=== PATIENT | male | born 1940 | race Caucasian/White ===

== ENCOUNTER 2020-03-07 09:54 | Inpatient (IN) | payer MEDICARE, OTHER ==
[~2020-03-07] VITALS: Ht 177.8 cm; Wt 111.7 kg
[2020-03-07] VITALS (7 sets, daily range): BP systolic 93–215; BP diastolic 63–177
[2020-03-07 10:28] LABS: BASOPHILS % (AUTO) 0 % (0-10); EOSINOPHILS # (AUTO) 0.1 10^3/uL (0.0-0.3); EOSINOPHILS % (AUTO) 1 % (0-10); HEMATOCRIT 45 % (40-54); HEMOGLOBIN 15.6 g/dL (13.3-17.7); LYMPHOCYTES # (AUTO) 2.1 10^3/uL (1.0-4.0); LYMPHOCYTES % (AUTO) 29 % (12-44); MEAN CORPUSCULAR HEMOGLOBIN 33 pg (25-34); MEAN CORPUSCULAR HGB CONC 35 g/dL (32-36); MEAN CORPUSCULAR VOLUME 95 fL (80-99); MEAN PLATELET VOLUME 9.7 fL (9.0-12.2); MONOCYTES # (AUTO) 0.5 10^3/uL (0.0-1.0); MONOCYTES % (AUTO) 7 % (0-12); NEUTROPHILS # (AUTO) 4.7 10^3/uL (1.8-7.8); NEUTROPHILS % (AUTO) 62 % (42-75); PLATELET COUNT 269 10^3/uL (130-400); WHITE BLOOD COUNT 7.5 10^3/uL (4.3-11.0)
[2020-03-07] MEDS ORDERED: LABETALOL HCL 20 MG/4 ML VIAL IV ONE (10:30)
--- NOTE | 2020-03-07 10:33 | ED General ---
General Chief Complaint: General Problems/Pain Stated Complaint: HTN, WEAKNESS Nursing Triage Note: 0941 PATIENT BROUGHT TO ROOM WAS SENT FROM [facility] WITH LEG SWELLING FRO 2 MONTHS AND NOT TAKEN B/P MEDS FOR 4 YEARS . LEGS SWOLLEN.ALSO REPOTS DRINKS WHISKEY EVERY AM TO GET THROUGH THE DAY. Nursing Sepsis Screen: No Definite Risk Source of Information: Patient Exam Limitations: No Limitations (DEZ HERNANDEZ STUDENT) History of Present Illness Date Seen by Provider: Mar 07, 2020 Time Seen by Provider: 10:05 Initial Comments Mr. Anderson is an 79 y.o. M who [facility] for workup of his hypertension. He said he has been "feeling like hell all over" for the last 3 months. He said he has had weakness, lightheadedness, shortness of breath, decreased appetite, weight gain of 50lb over the last 3 months. He said this has caused him to drink a "glassful" of rum every morning for the last 3 months. He reports he has had difficulty urinating and also has blood at the start of his urination stream. He denies any painful urination or blood in the stool. He reports he had a prostatectomy and radiation treatment in 2007 for prostate cancer here at [facility]. He last saw a physician 4 years ago. He denies any other medical problems or taking any medications. He denies SANTA, vision problems, chest pain, abdominal pain, nausea, or vomiting. (DEZ HERNANDEZ MED STUDENT) Allergies and Home Medications Allergies Coded Allergies: No Known Drug Allergies (Unverified , 03/07/20) Patient Home Medication List Home Medication List Reviewed: Yes (DEZ HERNANDEZ MED STUDENT) Review of Systems Review of Systems Constitutional: No dizziness, No fever; weakness, weight gain EENTM: No blurred vision, No double vision, No eye pain, No vision loss Respiratory: No cough, No dyspnea on exertion; short of breath Cardiovascular: No chest pain; edema Gastrointestinal: No abdominal pain, No diarrhea; loss of appetite; No nausea, No vomiting Genitourinary: No dysuria; hematuria; No pain Musculoskeletal: No back pain Psychiatric/Neurological: Denies Headache; Weakness Immunological/Allergic: pollen allergy (DEZ HERNANDEZ MED STUDENT) Past Ttexcrb-Ztrmxq-Txjesu Hx Patient Social History Alcohol Use: Regular Use Number of Drinks Today: 0 Alcohol Beverage of Choice: Rum, Wine Recreational Drug Use: No Smoking Status: Never a Smoker Recent Foreign Travel: No Contact w/Someone Who Travel: No Recent Infectious Disease Expo: No (DEZ HERNANDEZ STUDENT) Past Medical History Surgeries: Yes (PROSTATE) Respiratory: No Cardiac: Yes Hypertension Neurological: No Genitourinary: Yes Prostate Problems (Prostate cancer s/p radiation and prostatectomy) Gastrointestinal: No Musculoskeletal: No Endocrine: No HEENT: No Cancer: Yes Prostate Psychosocial: No (DEZ HERNANDEZ STUDENT) Physical Exam Vital Signs Vital Signs - First Documented 03/07/20 10:00 Temp 36.2 Pulse 99 Resp 18 B/P (MAP) 241/156 (184) Pulse Ox 96 O2 Delivery Room Air (GARY ORTEGA MD) Vital Signs Capillary Refill : Less Than 3 Seconds (DEZ HERNANDEZ STUDENT) Height, Weight, BMI Height: '" Weight: lbs. oz. kg; 40.00 BMI Method: General Appearance: Mild Distress, Obese Eyes: Bilateral Eye Normal Inspection, Bilateral Eye EOMI, Bilateral Eye Conjunctivae Pale Neck: Full Range of Motion, Non Tender Respiratory: Chest Non Tender, Lungs Clear, Normal Breath Sounds, No Respiratory Distress Cardiovascular: Regular Rate, Rhythm, No Murmur, Normal Peripheral Pulses Gastrointestinal: No Organomegaly, Non Tender, Distended, Hernia; No Tenderness Back: No CVA Tenderness Extremity: Pedal Edema Neurologic/Psychiatric: Alert, Oriented x3, No Motor/Sensory Deficits, Normal Mood/Affect Skin: Other (Bilateral pitting edema of lower extremities with scaling) (DEZ HERNANDEZ MED STUDENT) Progress/Results/Core Measures Suspected Sepsis Recent Fever Within 48 Hours: No Infection Criteria Present: None New/Unexplained Altered Menta: No Sepsis Screen: No Definite Risk SIRS Temperature: Pulse: 99 Respiratory Rate: 18 Laboratory Tests 03/07/20 10:22: White Blood Count 7.5 Blood Pressure 241 /156 Mean: 184 Laboratory Tests 03/07/20 10:22: Creatinine 1.46H, INR Comment 1.0, Platelet Count 269, Total Bilirubin 0.7 (DEZ HERNANDEZ MED STUDENT) Results/Orders Lab Results Laboratory Tests Test 03/07/20 10:22 03/07/20 10:42 Range/Units White Blood Count 7.5 4.3-11.0 10^3/uL Red Blood Count 4.75 4.30-5.52 10^6/uL Hemoglobin 15.6 13.3-17.7 g/dL Hematocrit 45 40-54 % Mean Corpuscular Volume 95 80-99 fL Mean Corpuscular Hemoglobin 33 25-34 pg Mean Corpuscular Hemoglobin Concent 35 32-36 g/dL Red Cell Distribution Width 12.6 10.0-14.5 % Platelet Count 269 130-400 10^3/uL Mean Platelet Volume 9.7 9.0-12.2 fL Immature Granulocyte % (Auto) 0 % Neutrophils (%) (Auto) 62 42-75 % Lymphocytes (%) (Auto) 29 12-44 % Monocytes (%) (Auto) 7 0-12 % Eosinophils (%) (Auto) 1 0-10 % Basophils (%) (Auto) 0 0-10 % Neutrophils # (Auto) 4.7 1.8-7.8 10^3/uL Lymphocytes # (Auto) 2.1 1.0-4.0 10^3/uL Monocytes # (Auto) 0.5 0.0-1.0 10^3/uL Eosinophils # (Auto) 0.1 0.0-0.3 10^3/uL Basophils # (Auto) 0.0 0.0-0.1 10^3/uL Immature Granulocyte # (Auto) 0.0 0.0-0.1 10^3/uL Prothrombin Time 13.5 12.2-14.7 SEC INR Comment 1.0 0.8-1.4 Activated Partial Thromboplast Time 26 24-35 SEC Sodium Level 136 135-145 MMOL/L Potassium Level 4.0 3.6-5.0 MMOL/L Chloride Level 100 98-107 MMOL/L Carbon Dioxide Level 26 21-32 MMOL/L Anion Gap 10 5-14 MMOL/L Blood Urea Nitrogen 20 H 7-18 MG/DL Creatinine 1.46 H 0.60-1.30 MG/DL Estimat Glomerular Filtration Rate 46 BUN/Creatinine Ratio 14 Glucose Level 109 H 70-105 MG/DL Calcium Level 8.8 8.5-10.1 MG/DL Corrected Calcium 8.8 8.5-10.1 MG/DL Magnesium Level 1.9 1.6-2.4 MG/DL Total Bilirubin 0.7 0.1-1.0 MG/DL Aspartate Amino Transf (AST/SGOT) 18 5-34 U/L Alanine Aminotransferase (ALT/SGPT) 24 0-55 U/L Alkaline Phosphatase 70 40-136 U/L Myoglobin 75.6 10.0-92.0 NG/ML Troponin I < 0.028 <0.028 NG/ML C-Reactive Protein High Sensitivity 1.74 H 0.00-0.50 MG/DL B-Type Natriuretic Peptide 88.7 <100.0 PG/ML Total Protein 7.2 6.4-8.2 GM/DL Albumin 4.0 3.2-4.5 GM/DL Thyroid Stimulating Hormone (TSH) 2.74 0.35-4.94 UIU/ML Free Thyroxine 0.85 0.70-1.48 NG/DL Serum Alcohol < 10 <10 MG/DL Urine Color YELLOW Urine Clarity CLEAR Urine pH 6.0 5-9 Urine Specific [place] 1.020 1.016-1.022 Urine Protein 1+ H NEGATIVE Urine Glucose (UA) NEGATIVE NEGATIVE Urine Ketones 1+ H NEGATIVE Urine Nitrite NEGATIVE NEGATIVE Urine Bilirubin NEGATIVE NEGATIVE Urine Urobilinogen 0.2 < = 1.0 MG/DL Urine Leukocyte Esterase NEGATIVE NEGATIVE Urine RBC (Auto) TRACE-I NEGATIVE Urine RBC RARE /HPF Urine WBC NONE /HPF Urine Squamous Epithelial Cells RARE /HPF Urine Crystals NONE /LPF Urine Bacteria NEGATIVE /HPF Urine Casts NONE /LPF Urine Mucus NEGATIVE /LPF Urine Culture Indicated NO Urine Opiates Screen NEGATIVE NEGATIVE Urine Oxycodone Screen NEGATIVE NEGATIVE Urine Methadone Screen NEGATIVE NEGATIVE Urine Propoxyphene Screen NEGATIVE NEGATIVE Urine Barbiturates Screen NEGATIVE NEGATIVE Ur Tricyclic Antidepressants Screen NEGATIVE NEGATIVE Urine Phencyclidine Screen NEGATIVE NEGATIVE Urine Amphetamines Screen NEGATIVE NEGATIVE Urine Methamphetamines Screen NEGATIVE NEGATIVE Urine Benzodiazepines Screen NEGATIVE NEGATIVE Urine Cocaine Screen NEGATIVE NEGATIVE Urine Cannabinoids Screen NEGATIVE NEGATIVE (GARY ORTEGA MD) My Orders Orders - GARY ORTEGA MD Thyroid Stimulating Hormone (03/07/20 10:59) Free T4 (Free Thyroxine) (03/07/20 10:59) Ns (Ivpb) (Sodium C... W/Nicardipine Iv (03/07/20 12:15) Clonidine Tablet (Catapres Tablet) (03/07/20 12:45) Amlodipine Tablet (Norvasc Tablet) (03/08/20 09:00) Furosemide Injection (Lasix Injection) (03/07/20 12:45) Metoprolol Succinate (Xl) Tab (Toprol Xl (03/07/20 12:45) (GARY ORTEGA MD) Medications Given in ED Current Medications Medications Dose Ordered Sig/Chung Route Start Time Stop Time Status Last Admin Dose Admin Labetalol HCl 10 mg ONCE ONCE IV 03/07/20 10:30 03/07/20 10:31 DC 03/07/20 10:47 10 MG (GARY ORTEGA MD) Vital Signs/I&O 03/07/20 10:00 Temp 36.2 Pulse 99 Resp 18 B/P (MAP) 241/156 (184) Pulse Ox 96 O2 Delivery Room Air (GARY ORTEGA MD) Vital Signs/I&O Capillary Refill : Less Than 3 Seconds (DEZ HERNANDEZ MED STUDENT) Blood Pressure Mean: 184 Progress Note : Progress Note Patient is an 79 y/o M who presents with 3 month history of Upon arrival patient found to have a MAP of 184. Differential diagnosis at this time is hypertensive urgency vs emergency, thyroid disease, UTI, genitourinary malignancy, bladder outlet obstruction, liver cirrhosis. Will order EKG, CXR, CBC, CMP, thyroid panel, bladder US scan, UA, drug screen and alcohol level. Will administer labetolol 10mg IV for blood pressure while we await the results of the labs/imaging. (DEZ HERNANDEZ MED STUDENT) Progress Note : Time: 12:38 Progress Note Discussed with Dr Guthrie who requested we call DR Kent for consultation. Dr Kent requests 0.1mg of clonidine, 10mg of norvasc, Lasix 80mg and Toprol 50mg. Will place him in ICU stepdown. PAtient is comfortable with the plan of care and all questions are sought and answered. (GARY ORTEGA MD) Diagnostic Imaging Diagonstic Imaging: Xray Plain Films/CT/US/NM/MRI: chest Comments [facility]. [place], [place] NAME: MARLEN ANDERSON MED REC#: [id number] PT STATUS: REG ER : 1940 PHYSICIAN: BARBARA VARGHESE MD ADMIT DATE: 03/07/20/ER Signed Date of Exam:03/07/20 CHEST 1 VIEW, AP/PA ONLY Indication: Peripheral edema Portable chest 10:59 AM Heart size and pulmonary vascularity are normal. Lungs are clear. There are no effusions or pneumothoraces. IMPRESSION: Negative chest Dictated by: Dictated on workstation # [id number] Dict: 03/07/20 1056 Trans: 03/07/20 1057 TB [id number] Interpreted by: JOHN KENNEY MD Electronically signed by: JOHN KENNEY MD 03/07/20 1057 (GARY ORTEGA MD) Departure Impression Primary Impression: Hypertensive urgency Disposition: ADMITTED INPATIENT Condition: Stable Admissions Decision to Admit Reason: Admit from ER (General) Decision to Admit/Date: Mar 07, 2020 Time/Decision to Admit Time: 12:40 (GARY ORTEGA MD) Departure-Patient Inst. Referrals: NO,LOCAL PHYSICIAN (PCP/Family) Primary Care Physician I have reviewed the medical students history and physical exam, I am in agreement with his documentation and assessment and plan of care. (GARY ROTEGA MD) DEZ HERNANDEZ MED STUDENT Mar 07, 2020 10:33 GARY ORTEGA MD Mar 07, 2020 11:20
[2020-03-07 10:42] LABS: PROTHROMBIN TIME PATIENT 13.5 SEC (12.2-14.7)
[2020-03-07 10:44] LABS: CHLORIDE 100 MMOL/L (98-107); SODIUM 136 MMOL/L (135-145)
[2020-03-07 10:45] LABS: CALCIUM 8.8 MG/DL (8.5-10.1)
[2020-03-07 10:47] LABS: GLUCOSE 109 MG/DL (70-105); TOTAL PROTEIN 7.2 GM/DL (6.4-8.2)
[2020-03-07 10:48] LABS: BILIRUBIN,TOTAL 0.7 MG/DL (0.1-1.0); CARBON DIOXIDE 26 MMOL/L (21-32)
[2020-03-07 10:50] LABS: ALKALINE PHOSPHATASE 70 U/L (40-136)
[2020-03-07 10:51] LABS: CREATININE SERUM 1.46 MG/DL (0.60-1.30); GFR ESTIMATED 46
[2020-03-07 10:52] LABS: BUN/CREATININE RATIO 14
[2020-03-07 10:53] LABS: MAGNESIUM 1.9 MG/DL (1.6-2.4)
[2020-03-07 10:54] LABS: ALANINE AMINOTRANSFERASE 24 U/L (0-55)
--- NOTE | 2020-03-07 10:58 | Diagnostic Imaging Report ---
Indication: Peripheral edema Portable chest 10:59 AM Heart size and pulmonary vascularity are normal. Lungs are clear. There are no effusions or pneumothoraces. IMPRESSION: Negative chest Dictated by: Dictated on workstation # [id number]
[2020-03-07 11:00] LABS: BILIRUBIN,URINE NEGATIVE (NEGATIVE); CLARITY,URINE CLEAR; COLOR,URINE YELLOW; GLUCOSE, URINE (UA) NEGATIVE (NEGATIVE); KETONES,URINE 1+ (NEGATIVE); LEUKOCYTE ESTERASE ,URINE NEGATIVE (NEGATIVE); NITRITE,URINE NEGATIVE (NEGATIVE); PROTEIN,URINE 1+ (NEGATIVE)
[2020-03-07 11:04] LABS: BACTERIA,URINE NEGATIVE /HPF; RBC,URINE RARE /HPF; SQUAMOUS EPITHELIAL CELL,UR RARE /HPF
[2020-03-07 11:23] LABS: AMPHETAMINE SCREEN, URINE NEGATIVE (NEGATIVE); BARBITURATE SCREEN URINE NEGATIVE (NEGATIVE); BENZODIAZEPINES SCREEN URINE NEGATIVE (NEGATIVE); CANNABINOID SCREEN, URINE NEGATIVE (NEGATIVE); COCAINE SCREEN URINE NEGATIVE (NEGATIVE); METHADONE STAT NEGATIVE (NEGATIVE); METHAMPHETAMINE SCREEN URINE S NEGATIVE (NEGATIVE); OPIATE SCREEN URINE NEGATIVE (NEGATIVE); OXYCODONE STAT NEGATIVE (NEGATIVE); PROPOXYPHENE STAT NEGATIVE (NEGATIVE); TRICYCLIC ANTIDEPRESSANTS SCRE NEGATIVE (NEGATIVE)
[2020-03-07 11:49] LABS: FREE T4 (FREE THYROXINE) 0.85 NG/DL (0.70-1.48)
[2020-03-07] MEDS ORDERED: niCARdipine IV 50 MG in NS (IVPB) 230 ML IV SCH (12:15)
[2020-03-07] MEDS ORDERED: FUROSEMIDE 40 MG/4 ML INJ (LASIX) IVP ONE (12:45)
[2020-03-07] MEDS ORDERED: cloNIDine 0.1 MG (CATAPRES) TAB PO ONE (12:45)
[2020-03-07] MEDS ORDERED: meTOproloL SUCCINATE 50 MG (TOPROL XL) TAB PO SCH (12:45)
[2020-03-07] MEDS ORDERED: amLODIPine 10 MG (NORVASC) TAB ONE (12:48)
[2020-03-07] MEDS: amLODIPine 5 MG (NORVASC) TAB PO SCH (12:49)
[2020-03-07] MEDS ORDERED: meTOprolol 5 MG/5 ML (LOPRESSOR) VIAL IV NR (14:00)
[2020-03-07] MEDS: cloNIDine 0.1 MG (CATAPRES) TAB PO SCH ×2 (14:11→20:05)
--- NOTE | 2020-03-07 14:15 | History & Physical-Hospitalist ---
MADISON BERRY MED STUDENT 03/07/20 1415: History of Present Illness HPI/Chief Complaint CC: hypertension Mr. Bowden is an 79 y.o. M who presented to the ED from the [facility] clinic this morning for hypertension work up. He states he has been feeling weak and "crappy" for the last few months. He also notes some shortness of breath and a decreased appetite. He mentions a history of dizziness for the past year, with one fall last summer that resulted in multiple abrasions to the face. he produced a picture from his phone showing the result of the fall. No recent falls. He drinks a "glassful" of rum and some wine every day, but has not had an ything to drink yet today. He has not seen a primary care doctor for four years prior to today. He was previously on home medications for hypertension, but discontinued them 4 years ago because he felt he no longer needed them. Blood pressure in the ED was noted to be 241/156 mmHg. He also has had bilateral leg swelling for the past 3 months. He notes no drainage, but has been itchy, to the point that he scratched them until they bled. He has had some difficulty starting urination. He has a history of prostate cancer with subsequent prostatectomy and radiation in 2007. He denies any other problems today and is not taking any home medications. Denies chest pain, SANTA, vision changes, abdominal pain, or bowel incontinence. Source: patient Exam Limitations: no limitations Date Seen 03/07/20 Time Seen by a Provider: 15:00 Attending Physician Guillermina Higgins DO PCP No,Local Physician Referring Physician Date of Admission Mar 07, 2020 at 12:37 Home Medications & Allergies Home Medications Reviewed patient Home Medication Reconciliation performed by pharmacy medication reconciliations nanotechnician and/or nursing. Patients Allergies have been reviewed. Allergies Allergies Coded Allergies No Known Drug Allergies (Gzpxyhqdet52/2/20) Past Wgjweyy-Zzmgui-Pygewd Hx Patient Social History Alcohol Use: Regular Use Alcohol Beverage of Choice: Rum, Wine Recreational Drug Use: No Smoking Status: Never a Smoker Recent Foreign Travel: No Contact w/other who traveled: No Recent Infectious Disease Expo: No Past Medical History Surgeries: Prostatectomy Cardiac: Hypertension Genitourinary: Prostate Problems (Prostate cancer s/p radiation and prostatectomy) Cancer: Prostate Review of Systems Constitutional: see HPI, dizziness, malaise, weakness EENTM: see HPI; No blurred vision, No double vision, No vision loss Respiratory: see HPI, short of breath Cardiovascular: see HPI; No chest pain; edema Gastrointestinal: see HPI; No abdominal pain (x4 quadrants); loss of appetite; No nausea, No vomiting Genitourinary: see HPI, hesitancy; No pain Musculoskeletal: see HPI Skin: see HPI, pruritus Psychiatric/Neurological: See HPI, Headache Physical Exam Physical Exam Vital Signs Vital Signs - First Documented 03/07/20 10:00 Temp 36.2 Pulse 99 Resp 18 B/P (MAP) 241/156 (184) Pulse Ox 96 O2 Delivery Room Air Capillary Refill : Less Than 3 Seconds Height, Weight, BMI Height: '" Weight: lbs. oz. kg; 37.32 BMI Method: General Appearance: No Apparent Distress, WD/WN, Obese Eyes: Bilateral Eye Normal Inspection, Bilateral Eye PERRL, Bilateral Eye EOMI, Bilateral Eye Conjunctivae Pale Neck: Normal Inspection, Non Tender, Supple Respiratory: Chest Non Tender, Lungs Clear, Normal Breath Sounds, No Accessory Muscle Use, No Respiratory Distress Cardiovascular: Regular Rate, Rhythm, No Murmur, Normal Peripheral Pulses Gastrointestinal: No Pulsatile Mass, Non Tender, Soft, Distended; No Mass, No Tenderness Extremity: Non Tender, Pedal Edema Neurologic/Psychiatric: Alert, Oriented x3, No Motor/Sensory Deficits, Normal Mood/Affect Skin: Other (bilateral lower extremity pitting edema with scaling and scabbing) Results Results/Procedures Labs Laboratory Tests 03/07/20 10:22 Patient resulted labs reviewed. Imaging: Reviewed Imaging Report Imaging Reviewed CXR from ED. No evidence of effusion or pneumothoraces Meds No home medications for review. Assessment/Plan Admission Diagnosis Hypertensive Urgency Admission Status: Inpatient Order (span 2 midnights) Reason for Inpatient Admission: Admitted for control of hypertension. R/o Hypertensive urgency v hypertensive emergency. Diagnosis/Problems Diagnosis/Problems (1) Hypertensive urgency Status: Acute Assessment & Plan: Restart antihypertensive medications Monitor labs as medications restarted, monitor for end-organ damage Lasix for peripheral edema and BP (2) AA (alcohol abuse) Assessment & Plan: Continue to monitor for signs of alcohol withdrawal due to daily alcohol use. Patient reports not having alcohol prior to admission today. Clinical Quality Measures DVT/VTE Risk/Contraindication: Risk Factor Score Per Nursin RFS Level Per Nursing on Admit: 4+=Very High RONALDOGUILLERMINA DO 03/08/20 0539: History of Present Illness HPI/Chief Complaint CC: Weakness with HTN urgency HPI: This is an 79yoWM clinic pt of [facility] who presents to the ER with weakness and found to have very elevated BP. Patient had evidence of edema of LE and ELHAM. Cardiology consulted. Past Lgplbgn-Fokiyk-Dgtktz Hx Past Med/Social Hx: Reviewed Nursing Past Med/Soc Hx, Reviewed and Corrections made Patient Social History Marrital Status: Employed/Student: retired Alcohol Use: Regular Use Smoking Status: Never a Smoker Past Medical History Cardiac: Hypertension Review of Systems Constitutional: see HPI Physical Exam Physical Exam General Appearance: No Apparent Distress, Chronically ill, Obese Eyes: Right Eye Normal Inspection, Right Eye PERRL HEENT: PERRL/EOMI, Normal ENT Inspection, Pharynx Normal, Moist Mucous Membranes Neck: Full Range of Motion, Normal Inspection, Non Tender Respiratory: Chest Non Tender, Lungs Clear, Normal Breath Sounds, No Accessory Muscle Use, No Respiratory Distress Cardiovascular: Regular Rate, Rhythm, No Edema, No Gallop, No JVD, No Murmur, Normal Peripheral Pulses Gastrointestinal: Normal Bowel Sounds, No Organomegaly, No Pulsatile Mass, Non Tender, Soft Back: Normal Inspection, No CVA Tenderness, No Vertebral Tenderness Extremity: Normal Capillary Refill, Normal Inspection, Normal Range of Motion, Non Tender, No Calf Tenderness, No Pedal Edema Neurologic/Psychiatric: Alert, Oriented x3, No Motor/Sensory Deficits, Normal Mood/Affect Skin: Normal Color, Warm/Dry Lymphatic: No Adenopathy Assessment/Plan Admission Diagnosis Assessment: HTN urgency Weakness ELHAM Plan: ICU Cardiology Admission Status: Inpatient Order (span 2 midnights) Reason for Inpatient Admission: HTN urgency with ELHAM Supervisory-Addendum Brief Verification & Attestation Participated in pt care: history, MDM, physical Personally performed: exam, history, MDM, supervision of care Care discussed with: Medical Student Procedures: n/a Results interpretation: Verified all documentation Verification and Attestation of Medical Student E/M Service A medical student performed and documented this service in my presence. I reviewed and verified all information documented by the medical student and made modifications to such information, when appropriate. I personally performed the physical exam and medical decision making. Guillermina Higgins, Mar 08, 2020,05:39 MADISON BERRY MED STUDENT Mar 07, 2020 14:15 GUILLERMINA HIGGINS DO Mar 08, 2020 05:39
--- NOTE | 2020-03-07 16:33 | Consultation-Cardiology ---
HPI-Cardiology Cardiology Consultation Date of Consultation 03/07/20 Date of Admission Time Seen by Provider: 16:30 Indication: hypertensive urgency HPI 79 years old gentleman who was sent from [facility] to the emergency room due to significant hypertension, patient has not been feeling well for a while. Generalized fatigue and loss of energy, no specific finding, generalized body ache. No chest pain. No syncope or near syncopal episodes. No claudication, on arrival to the emergency room patient was severely hypertensive. After receiving multiple oral medication and IV medication and his blood pressure is somewhat better, still not feeling very well today. Home Medications & Allergies Allergies: Coded Allergies: No Known Drug Allergies (Unverified , 03/07/20) Home Medication List Reviewed: Yes Does not take any medication at home RBP-Wzldqz-Egltmg Hx Patient Social History Marital Status: Alcohol Use: Regular Use Recreational Drug Use: No Smoking Status: Never a Smoker Recent Foreign Travel: No Recent Infectious Disease Expo: No Past Medical History No known past medical history Family Medical History Family Medical Hx Noncontributory Review of Systems-General Review of Systems Constitutional: see HPI, dizziness, malaise, weakness EENTM: see HPI; No blurred vision, No double vision, No vision loss Respiratory: see HPI, short of breath Cardiovascular: see HPI; No chest pain; edema Gastrointestinal: see HPI; No abdominal pain (x4 quadrants); loss of appetite; No nausea, No vomiting Genitourinary: see HPI, hesitancy; No pain Musculoskeletal: see HPI Skin: see HPI, pruritus Psychiatric/Neurological: See HPI, Headache Reviewed Test Results Reviewed Test Results Lab Laboratory Tests Test 03/07/20 10:22 03/07/20 10:42 Range/Units White Blood Count 7.5 4.3-11.0 10^3/uL Red Blood Count 4.75 4.30-5.52 10^6/uL Hemoglobin 15.6 13.3-17.7 g/dL Hematocrit 45 40-54 % Mean Corpuscular Volume 95 80-99 fL Mean Corpuscular Hemoglobin 33 25-34 pg Mean Corpuscular Hemoglobin Concent 35 32-36 g/dL Red Cell Distribution Width 12.6 10.0-14.5 % Platelet Count 269 130-400 10^3/uL Mean Platelet Volume 9.7 9.0-12.2 fL Immature Granulocyte % (Auto) 0 % Neutrophils (%) (Auto) 62 42-75 % Lymphocytes (%) (Auto) 29 12-44 % Monocytes (%) (Auto) 7 0-12 % Eosinophils (%) (Auto) 1 0-10 % Basophils (%) (Auto) 0 0-10 % Neutrophils # (Auto) 4.7 1.8-7.8 10^3/uL Lymphocytes # (Auto) 2.1 1.0-4.0 10^3/uL Monocytes # (Auto) 0.5 0.0-1.0 10^3/uL Eosinophils # (Auto) 0.1 0.0-0.3 10^3/uL Basophils # (Auto) 0.0 0.0-0.1 10^3/uL Immature Granulocyte # (Auto) 0.0 0.0-0.1 10^3/uL Prothrombin Time 13.5 12.2-14.7 SEC INR Comment 1.0 0.8-1.4 Activated Partial Thromboplast Time 26 24-35 SEC Sodium Level 136 135-145 MMOL/L Potassium Level 4.0 3.6-5.0 MMOL/L Chloride Level 100 98-107 MMOL/L Carbon Dioxide Level 26 21-32 MMOL/L Anion Gap 10 5-14 MMOL/L Blood Urea Nitrogen 20 H 7-18 MG/DL Creatinine 1.46 H 0.60-1.30 MG/DL Estimat Glomerular Filtration Rate 46 BUN/Creatinine Ratio 14 Glucose Level 109 H 70-105 MG/DL Calcium Level 8.8 8.5-10.1 MG/DL Corrected Calcium 8.8 8.5-10.1 MG/DL Magnesium Level 1.9 1.6-2.4 MG/DL Total Bilirubin 0.7 0.1-1.0 MG/DL Aspartate Amino Transf (AST/SGOT) 18 5-34 U/L Alanine Aminotransferase (ALT/SGPT) 24 0-55 U/L Alkaline Phosphatase 70 40-136 U/L Myoglobin 75.6 10.0-92.0 NG/ML Troponin I < 0.028 <0.028 NG/ML C-Reactive Protein High Sensitivity 1.74 H 0.00-0.50 MG/DL B-Type Natriuretic Peptide 88.7 <100.0 PG/ML Total Protein 7.2 6.4-8.2 GM/DL Albumin 4.0 3.2-4.5 GM/DL Thyroid Stimulating Hormone (TSH) 2.74 0.35-4.94 UIU/ML Free Thyroxine 0.85 0.70-1.48 NG/DL Serum Alcohol < 10 <10 MG/DL Urine Color YELLOW Urine Clarity CLEAR Urine pH 6.0 5-9 Urine Specific [place] 1.020 1.016-1.022 Urine Protein 1+ H NEGATIVE Urine Glucose (UA) NEGATIVE NEGATIVE Urine Ketones 1+ H NEGATIVE Urine Nitrite NEGATIVE NEGATIVE Urine Bilirubin NEGATIVE NEGATIVE Urine Urobilinogen 0.2 < = 1.0 MG/DL Urine Leukocyte Esterase NEGATIVE NEGATIVE Urine RBC (Auto) TRACE-I NEGATIVE Urine RBC RARE /HPF Urine WBC NONE /HPF Urine Squamous Epithelial Cells RARE /HPF Urine Crystals NONE /LPF Urine Bacteria NEGATIVE /HPF Urine Casts NONE /LPF Urine Mucus NEGATIVE /LPF Urine Culture Indicated NO Urine Opiates Screen NEGATIVE NEGATIVE Urine Oxycodone Screen NEGATIVE NEGATIVE Urine Methadone Screen NEGATIVE NEGATIVE Urine Propoxyphene Screen NEGATIVE NEGATIVE Urine Barbiturates Screen NEGATIVE NEGATIVE Ur Tricyclic Antidepressants Screen NEGATIVE NEGATIVE Urine Phencyclidine Screen NEGATIVE NEGATIVE Urine Amphetamines Screen NEGATIVE NEGATIVE Urine Methamphetamines Screen NEGATIVE NEGATIVE Urine Benzodiazepines Screen NEGATIVE NEGATIVE Urine Cocaine Screen NEGATIVE NEGATIVE Urine Cannabinoids Screen NEGATIVE NEGATIVE Physical Exam Physical Exam Vital Signs Vital Signs - First Documented 03/07/20 10:00 Temp 36.2 Pulse 99 Resp 18 B/P (MAP) 241/156 (184) Pulse Ox 96 O2 Delivery Room Air Capillary Refill : Less Than 3 Seconds Height, Weight, BMI Height: '" Weight: lbs. oz. kg; 37.32 BMI Method: General Appearance: No Apparent Distress, WD/WN, Obese Eyes: Bilateral Eye Normal Inspection, Bilateral Eye PERRL, Bilateral Eye EOMI, Bilateral Eye Conjunctivae Pale Neck: Normal Inspection, Non Tender, Supple Respiratory: Chest Non Tender, Lungs Clear, Normal Breath Sounds, No Accessory Muscle Use, No Respiratory Distress Cardiovascular: Regular Rate, Rhythm, No Murmur, Normal Peripheral Pulses Gastrointestinal: No Pulsatile Mass, Non Tender, Soft, Distended; No Mass, No Tenderness Back: No CVA Tenderness Extremity: Non Tender, Pedal Edema Neurologic/Psychiatric: Alert, Oriented x3, No Motor/Sensory Deficits, Normal Mood/Affect Skin: Other (bilateral lower extremity pitting edema with scaling and scabbing) A/P-Cardiology Admission Diagnosis Hypertensive urgency Peripheral edema Generalized malaise Assessment/Plan Hypertensive urgency, poorly controlled blood pressure, started on clonidine, metoprolol and amlodipine, blood pressure is better at this time. Continue to monitor, I will evaluate 2-D echocardiogram Significant peripheral edema, +3. Start her on diuretic, unknown etiology. BNP is normal. I will evaluate 2-D echo Generalized body ache, generalized fatigue and loss of energy. Clinical Quality Measures DVT/VTE Risk/Contraindication: Risk Factor Score Per Nursin RFS Level Per Nursing on Admit: 4+=Very High TERESA FINK MD Mar 07, 2020 16:33
[2020-03-07] MEDS ORDERED: CATHETER FLUSH 10 ML SYR IV PRN (18:45)
[2020-03-07] MEDS: FUROSEMIDE 40 MG/4 ML INJ (LASIX) IVP SCH (19:13)
[2020-03-07] MEDS: CATHETER FLUSH 10 ML SYR IV SCH (21:09)
[2020-03-08 00:15] VITALS: BP 132/103
[2020-03-08 03:40] LABS: HEMOGLOBIN 14.6 g/dL (13.3-17.7); MEAN PLATELET VOLUME 9.9 fL (9.0-12.2); WHITE BLOOD COUNT 7.3 10^3/uL (4.3-11.0)
[2020-03-08 03:48] LABS: ALBUMIN 3.6 GM/DL (3.2-4.5); POTASSIUM 3.6 MMOL/L (3.6-5.0)
[2020-03-08 03:49] LABS: CALCIUM 8.5 MG/DL (8.5-10.1)
[2020-03-08 03:51] LABS: TOTAL PROTEIN 6.5 GM/DL (6.4-8.2)
[2020-03-08 03:54] LABS: CREATININE SERUM 1.49 MG/DL (0.60-1.30)
[2020-03-08 04:07] VITALS: BP 127/89
--- NOTE | 2020-03-08 04:07 | Pulmonary Consultation ---
History of Present Illness History of Present Illness Date Seen by Provider: Mar 08, 2020 Time Seen by Provider: 03:45 Date of Admission Reason for Visit: hypertensive urgency History of Present Illness Ashok Bowden is an 79 y/o male with hx of prostatectomy/radiation tx in 2007 who presented from [facility] this yesterday (03/07) for hypertension workup. patient states he's been "feeling like hell all over" for 3 months with complaints of weakness, lightheadedness, SOB, decreased appetite and 50lb weight gain. Patient states this pushed him him to drink a "glassful" of rum every day since onset. In ER patient's BP taken at 241/156. Cardiology was consulted and Dr. Kent evaluated for HTN, who started patient on Clonidine, metoprolol and Amlodipine after which the patient showed significant improvement. 2D echo ordered. Patient also notes difficulty urinating and also has blood at the start of his urination stream without pain. Denied any other medical hx or medication. Patient currently lying down comfortably with no complaints, denies CP, SOB, abdominal pain, leg pain or changes in bowel habits. BP in room was 153/80. Allergies and Home Medications Allergies Coded Allergies: No Known Drug Allergies (Unverified , 03/07/20) Past Wqvnntb-Jfagfv-Ghrzmd Hx Patient Social History Alcohol Use: Regular Use Number of Drinks Today: 0 Alcohol Beverage of Choice: Rum, Wine Recreational Drug Use: No Smoking Status: Never a Smoker Recent Foreign Travel: No Contact w/Someone Who Travel: No Recent Infectious Disease Expo: No Past Medical History Surgeries: Yes (PROSTATE) Prostatectomy Respiratory: No Cardiac: Yes Hypertension Neurological: No Genitourinary: Yes Prostate Problems (Prostate cancer s/p radiation and prostatectomy) Gastrointestinal: No Musculoskeletal: No Endocrine: No HEENT: No Cancer: Yes Prostate Psychosocial: No Review of Systems Constitutional: No: Fever, Chills Eyes: No: Pain, Vision change ENT: No: Ear pain, Mouth pain Respiratory: No: Cough, Shortness of breath Cardiovascular: Edema; No: Chest Pain Gastrointestinal: No: Abdominal Pain, Diarrhea Genitourinary: No Dysuria, No Frequency Musculoskeletal: No: shoulder pain, foot pain Skin: Other (patient with some skin breakdown/scabs over the bilateral anterior lower legs, states they're from using the opposite foot to itch each leg); No: Jaundice Neurological: No: Change in speech, Confusion Sepsis Event Evaluation Height, Weight, BMI Height: '" Weight: lbs. oz. kg; 37.32 BMI Method: Exam Exam Vital Signs Date Time Temp Pulse Resp B/P (MAP) Pulse Ox O2 Delivery O2 Flow Rate FiO2 03/08/20 01:00 67 03/08/20 00:15 81 132/103 (113) 95 Room Air 03/08/20 00:00 Room Air 03/07/20 23:43 36.4 03/07/20 21:00 Room Air 03/07/20 20:03 36.8 03/07/20 20:00 80 10 131/76 (94) 92 Room Air 03/07/20 20:00 Room Air 03/07/20 19:00 78 03/07/20 18:00 95 40 183/103 (129) 93 Room Air 03/07/20 17:00 91 19 207/122 (150) 95 Room Air 03/07/20 16:00 80 43 183/117 (139) 95 Room Air 03/07/20 16:00 95 Room Air 03/07/20 15:30 37.1 03/07/20 15:00 82 16 167/101 (123) 95 Room Air 03/07/20 13:31 36.2 87 25 215/177 96 Room Air 03/07/20 13:26 36.2 87 25 215/177 (190) 96 Room Air 03/07/20 13:25 86 03/07/20 13:15 Room Air 03/07/20 13:15 82 18 238/137 98 03/07/20 10:00 36.2 99 18 241/156 (184) 96 Room Air I & O 03/08/20 07:00 Intake Total 540 ml Output Total 1675 ml Balance -1135 ml Height & Weight Height: '" Weight: lbs. oz. kg; 37.32 BMI Method: General Appearance: No Apparent Distress, WD/WN, Obese Neck: Normal Inspection, Non Tender, Supple Respiratory: Chest Non Tender, Lungs Clear, Normal Breath Sounds, No Accessory Muscle Use, No Respiratory Distress Cardiovascular: Regular Rate, Rhythm, No Murmur, Normal Peripheral Pulses Capillary Refill: Less Than 3 Seconds Gastrointestinal: non tender, no pulsatile mass Extremity: Non Tender, Pedal Edema (pitting) Neurologic/Psychiatric: Alert, Oriented x3, No Motor/Sensory Deficits, Normal Mood/Affect Skin: No Jaundice; Other (scabbing/skin breakdown over anterior legs (per patient, where he itched them)) Results Lab Laboratory Tests 03/07/20 10:22 03/08/20 03:25 MARY MEZA MED STUDENT Mar 08, 2020 04:07
[2020-03-08] MEDS: FUROSEMIDE 40 MG/4 ML INJ (LASIX) IVP SCH (06:19)
[2020-03-08] MEDS: CATHETER FLUSH 10 ML SYR IV SCH (06:19)
[2020-03-08 07:12] VITALS: BP 166/119
--- NOTE | 2020-03-08 07:43 | Cardiology Progress Note ---
Subjective Date Seen by Provider: Mar 08, 2020 Time Seen by Provider: 07:41 Subjective/Events-last exam Patient is sitting comfortably in bed no new complaint, feeling better today, still having significant edema Review of Systems General: No Chills, No Night Sweats, No Fatigue, No Malaise, No Appetite, No Other HEENT: No Head Aches, No Visual Changes, No Eye Pain, No Ear Pain, No Dysphasia, No Sinus Congestion, No Post Nasal Drip, No Sore Throat, No Other Pulmonary: No Dyspnea, No Cough, No Pleuritic Chest Pain, No Other Cardiovascular: Edema; No: Chest Pain, Palpitations, Orthopnea, Paroxysmal Noc. Dyspnea, Lt Headedness, Other Objective-Cardiology Exam Last Set of Vital Signs Vital Signs 03/08/20 07:12 Temp 36.0 Pulse 83 Resp 20 B/P (MAP) 166/119 (135) Pulse Ox 93 O2 Delivery Room Air Capillary Refill : Less Than 3 Seconds I&O Intake and Output 03/08/20 00:00 Intake Total 540 ml Output Total 1675 ml Balance -1135 ml Intake Oral 540 ml Output Urine Total 1675 ml Daily Weight Change No No General: Alert, Oriented X3, Cooperative HEENT: Atraumatic, PERRLA Neck: Supple, No JVD, No Thyromegaly Lungs: Clear to Auscultation, Normal Air Movement Heart: Regular Rate, Normal S1, Normal S2, No Murmurs Abdomen: Normal Bowel Sounds, Soft, No Tenderness, No Hepatosplenomegaly, No Masses Extremities: No Clubbing, No Cyanosis, Normal Pulses, No Tenderness/Swelling Skin: No Rashes, No Breakdown, No Significant Lesion, Other (peripheral edema) Neuro: Normal Gait, Normal Speech, Strength at 5/5 X4 Ext, Normal Tone, Sensation Intact Psych/Mental Status: Mental Status NL, Mood NL Results Lab Laboratory Tests 03/07/20 10:22 03/08/20 03:25 A/P-Cardiology Admission Diagnosis Hypertensive urgency Peripheral edema Generalized malaise Assessment/Plan Hypertensive urgency, better control at this time, continue on clonidine, Norvasc and added Toprol-XL 25 mg daily and evaluate tolerance and response Significant peripheral edema, +3, distended abdomen, anasarca, I will evaluate CT of the abdomen and venous Doppler of the lower extremity, continue on diuretics Normal BNP, I will evaluate 2-D echo Generalized body ache, generalized fatigue and loss of energy. Clinical Quality Measures DVT/VTE Risk/Contraindication: Risk Factor Score Per Nursin RFS Level Per Nursing on Admit: 4+=Very High TERESA FINK MD Mar 08, 2020 07:43
[2020-03-08] MEDS ORDERED: HOLD METFORMIN - RECEIVED CONTRAST 20 ML VIAL IV SCH (08:00)
[2020-03-08] MEDS ORDERED: IOHEXOL 350 MG/ML 100 ML (OMNIPAQUE 350) VIAL IV ONE (08:00)
[2020-03-08] MEDS ORDERED: CATHETER FLUSH 10 ML SYR IV PRN (08:00)
[2020-03-08] MEDS ORDERED: NS 100 ML (IVPB) BAG IV ONE (08:00)
--- NOTE | 2020-03-08 08:36 | Diagnostic Imaging Report ---
INDICATION: Bilateral leg swelling. Bilateral lower extremity venous Doppler study was performed in the routine fashion with color flow Doppler and waveform analysis. FINDINGS: The common femoral veins, superficial femoral veins, popliteal veins and visualized portion of the tibial veins show normal compressibility and venous flow patterns. There is normal augmentation. Some soft tissue edema is noted. IMPRESSION: No evidence of deep vein thrombosis in the major veins of both legs. Dictated by: Dictated on workstation # [id number]
[2020-03-08] MEDS: cloNIDine 0.1 MG (CATAPRES) TAB PO SCH (08:47)
[2020-03-08] MEDS: amLODIPine 5 MG (NORVASC) TAB PO SCH (08:50)
--- NOTE | 2020-03-08 10:20 | NUR ---
SPOKE WITH PT TO COMPLETE THE MED REC PT DENIES TAKING ANY PRESCRIPTION OR OTC MEDICATION- THEREFORE I SET THE MED REC "NO ACTIVE PRESCRIPTIONS OR REPORTED MEDICATIONS" WHEN ASKING WHAT PHARMACY HE WOULD PREFER TO USE, PT SAYS HE DOESNT KNOW AND [facility] SINCE THATS WHERE "SHE" GOES. I LET HIM KNOW I WOULD UPDATE HIS PHARMACY TO [facility] BUT AT THE TIME OF DISCHARGE IF HE WOULD LIKE TO GO SOMEWHERE ELSE TO LET HIS NURSE KNOW.
[2020-03-08] MEDS ORDERED: MTP25TSR PO (10:29)
[2020-03-08] MEDS ORDERED: CLN.1T PO (10:29)
[2020-03-08] MEDS ORDERED: AMLO-250 PO (10:29)
[2020-03-08] MEDS ORDERED: FURO-125 PO (10:29)
--- NOTE | 2020-03-08 10:30 | Discharge Summary ---
Discharge Summary Hospital Course Was the Problem List Reviewed?: Yes Problems/Dx: (1) Hypertensive urgency Status: Acute (2) AA (alcohol abuse) Hospital Course Date of Admission: Mar 07, 2020 at 12:37 Admission Diagnosis : Family Physician/Provider: No,Local Physician Date of Discharge: 03/08/20 Discharge Diagnosis: HTN urgency, CRI, edema Hospital Course: Hospital Course: Pt had an uneventful hospital course. He was admitted to ICU placed on a Cardene drip, cardiology was consulted and BP was much improved on Clonidine twice daily and Toprol and Amlodipine. Overall he did very well, stabilized and was DC in improved condition. Labs and Pending Lab Test: Laboratory Tests 03/07/20 10:42: Urine Color YELLOW, Urine Clarity CLEAR, Urine pH 6.0, Urine Specific [place] 1.020, Urine Protein 1+H, Urine Glucose (UA) NEGATIVE, Urine Ketones 1+H, Urine Nitrite NEGATIVE, Urine Bilirubin NEGATIVE, Urine Urobilinogen 0.2, Urine Leukocyte Esterase NEGATIVE, Urine RBC (Auto) TRACE-I, Urine RBC RARE, Urine WBC NONE, Urine Squamous Epithelial Cells RARE, Urine Crystals NONE, Urine Bacteria NEGATIVE, Urine Casts NONE, Urine Mucus NEGATIVE, Urine Culture Indicated NO, Urine Opiates Screen NEGATIVE, Urine Oxycodone Screen NEGATIVE, Urine Methadone Screen NEGATIVE, Urine Propoxyphene Screen NEGATIVE, Urine Barbiturates Screen NEGATIVE, Ur Tricyclic Antidepressants Screen NEGATIVE, Urine Phencyclidine Screen NEGATIVE, Urine Amphetamines Screen NEGATIVE, Urine Methamphetamines Screen NEGATIVE, Urine Benzodiazepines Screen NEGATIVE, Urine Cocaine Screen NEGATIVE, Urine Cannabinoids Screen NEGATIVE 03/08/20 03:25: White Blood Count 7.3, Red Blood Count 4.40, Hemoglobin 14.6, Hematocrit 42, Mean Corpuscular Volume 95, Mean Corpuscular Hemoglobin 33, Mean Corpuscular Hemoglobin Concent 35, Red Cell Distribution Width 12.8, Platelet Count 251, Mean Platelet Volume 9.9, Sodium Level 135, Potassium Level 3.6, Chloride Level 98, Carbon Dioxide Level 26, Anion Gap 11, Blood Urea Nitrogen 18, Creatinine 1.49H, Estimat Glomerular Filtration Rate 45, BUN/Creatinine Ratio 12, Glucose Level 111H, Calcium Level 8.5, Corrected Calcium 8.8, Total Bilirubin 1.0, Aspartate Amino Transf (AST/SGOT) 19, Alanine Aminotransferase (ALT/SGPT) 20, Alkaline Phosphatase 61, Total Protein 6.5, Albumin 3.6, Triglycerides Level 112, Cholesterol Level 191, LDL Cholesterol Direct 151H, VLDL Cholesterol 22, HDL Cholesterol 43 Home Meds Active Lasix (Furosemide) 20 Mg Tablet 20 Mg PO DAILY Amlodipine Besylate 5 Mg Tablet 10 Mg PO DAILY Metoprolol Succinate 25 Mg Tab.er.24h 25 Mg PO DAILY Clonidine HCl 0.1 Mg Tablet 0.1 Mg PO BID Assessment/Pt Instructions chc 1 week Discharge Planning: <30 minutes discharge planning Discharge Instructions Pneumonia Vaccine Order Indica: Yes Discharge Physical Examination Vital Signs Vital Signs Date Time Temp Pulse Resp B/P (MAP) Pulse Ox O2 Delivery O2 Flow Rate FiO2 03/08/20 08:00 Room Air 03/08/20 07:12 36.0 83 20 166/119 (135) 93 General Appearance: No Apparent Distress, WD/WN, Chronically ill Extremity: Pedal Edema Neurologic/Psychiatric: Alert, Oriented x3, No Motor/Sensory Deficits, Normal Mood/Affect Allergies: Coded Allergies: No Known Drug Allergies (Unverified , 03/07/20) Discharge Summary Date of Admission Mar 07, 2020 at 12:37 Date of Discharge Discharge Date: Mar 08, 2020 Admission Diagnosis Assessment: HTN urgency Weakness ELHAM Plan: ICU Cardiology Discharge Diagnosis (1) Hypertensive urgency Status: Acute Assessment & Plan: Restart antihypertensive medications Monitor labs as medications restarted, monitor for end-organ damage Lasix for peripheral edema and BP (2) AA (alcohol abuse) Assessment & Plan: Continue to monitor for signs of alcohol withdrawal due to daily alcohol use. Patient reports not having alcohol prior to admission today. Clinical Quality Measures DVT/VTE Risk/Contraindication: Risk Factor Score Per Nursin RFS Level Per Nursing on Admit: 4+=Very High MARLO HIGGINS DO Mar 08, 2020 10:30
--- NOTE | 2020-03-08 11:18 | Diagnostic Imaging Report ---
PROCEDURE: CT abdomen and pelvis with contrast. TECHNIQUE: Multiple contiguous axial images were obtained through the abdomen and pelvis after administration of intravenous contrast. Auto Exposure Controls were utilized during the CT exam to meet ALARA standards for radiation dose reduction. All CT scans use one or more of the following dose optimizing techniques: automated exposure control, MA and/or KvP adjustment based on patient size and exam type or iterative reconstruction. INDICATION: Weakness, bloating. FINDINGS: There is no abdominal/pelvic free fluid, ascites, or hemoperitoneum. There is no evidence for retroperitoneal hemorrhage. There is no fluid collection. There is no abnormal distention of small or large bowel. No ileus or bowel obstruction. No findings of fecal impaction. No perienteric or pericolonic edema. The atherosclerotic aorta is nonaneurysmal. Ostial plaque at the right renal artery takeoff may result in hemodynamically significant stenosis of that vessel. The unobstructed kidneys themselves appear nonfocal and nonacute. This patient has a small hiatal hernia. The liver shows evidence of mild fatty infiltration. The spleen, adrenals, and pancreas are negative. The prostate, seminal vesicles, and urinary bladder are unremarkable. No abdominal/pelvic lymphadenopathy. No acute bony abnormality. IMPRESSION: 1. No free fluid, fluid collection, obstructive features, or bowel distention. 2. Nonaneurysmal atherosclerosis. A stenosis at the right renal artery takeoff could not be excluded. 3. Mild hepatic steatosis and a small hiatal hernia. No acute appearing abnormality. Dictated by: Dictated on workstation # [id number]
--- NOTE | 2020-03-08 11:29 | Progress Note ---
MADISON BERRY STUDENT 03/08/20 1128: Progress Note Mr. Bowden is a 79 y.o. male who presented to the ED from [facility] for hypertension and weakness. He was admitted for further observation and work up for hypertensive urgency and ELHAM. His blood pressure in the ED was 241/156 mmHg. This morning, his blood pressure was 166/119 mmHg. He was . 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 No DVT was seen on Venous Doppler of bilateral LE. No effusions or pneumothoraces in CXR. He stated this morning his breathing had improved. ECHO was obtained this morning, result pending. He continues to have significant edema in bilateral LE. He is looking to discharge to today. GUILLERMINA GUTHRIE DO 03/09/20 0554: Supervisory-Addendum Brief Verification & Attestation Participated in pt care: history, MDM, physical Personally performed: exam, history, MDM, supervision of care Care discussed with: Medical Student Procedures: n/a Results interpretation: Verified all documentation Verification and Attestation of Medical Student E/M Service A medical student performed and documented this service in my presence. I reviewed and verified all information documented by the medical student and made modifications to such information, when appropriate. I personally performed the physical exam and medical decision making. Guillermina Guthrie, Mar 09, 2020,05:54 MADISON BERRY MED STUDENT Mar 08, 2020 11:28 GUILLERMINA GUTHRIE DO Mar 09, 2020 05:54
[2020-03-08 11:45] VITALS: BP 144/82
== END 2020-03-08 12:50 | disposition home or self-care (01) | DRG 305 ==
LOC: ER 09:57 → ICU 12:37
PROVIDERS: ADMIT Internal Medicine; ATTEND Internal Medicine
DX: I16.0 Hypertensive urgency (principal); N17.9 Acute kidney failure, unspecified; Z68.41 Body mass index [BMI] 40.0-44.9, adult; R39.11 Hesitancy of micturition; F10.10 Alcohol abuse, uncomplicated; E66.9 Obesity, unspecified; R63.0 Anorexia; Z85.46 Personal history of malignant neoplasm of prostate; Z90.79 Acquired absence of other genital organ(s); Z92.3 Personal history of irradiation
CPT/HCPCS: 36415; 71045; 74177; 80053; 80061; 80306; 80320; 81000; 82962; 83735; 83874; 83880; 84439; 84443; 84484; 85025; 85027; 85610; 85730; 86141; 93005; 93041; 93306; 93970

== ENCOUNTER 2020-03-11 09:57 | Emergency (ER) | payer SELFPAY ==
[~2020-03-11] VITALS: Ht 180 cm; Wt 102.0 kg
[~2020-03-11 09:57] MED LIST: AMLO-250 PO; CLN.1T PO; FURO-125 PO; MTP25TSR PO
--- NOTE | 2020-03-11 10:26 | ED GU-Female ---
General Chief Complaint: - Urinary Stated Complaint: UNABLE TO URINATE Nursing Triage Note: PT REPORTS TO ED FOR URINARY RETENTION SINCE LAST NIGHT. PT BROUGHT TO ROOM 05 BY WHEELCHAIR. Nursing Sepsis Screen: No Definite Risk Source: patient Exam Limitations: no limitations History of Present Illness Date Seen by Provider: Mar 11, 2020 Time Seen by Provider: 10:25 Initial Comments To ER with inability to urinate and the sensation of a full bladder since last night. No fevers or chills. No history of urinary retention. Was admitted to the hospital from March 07 to March 08 for hypertensive urgency. Timing/Duration: constant Severity/Quality: moderate Location: suprapubic Radiation: none Activities at Onset: none Prior Genitourinary Problems: none Associated Symptoms: denies symptoms Allergies and Home Medications Allergies Coded Allergies: No Known Drug Allergies (Unverified , 03/07/20) Home Medications Amlodipine Besylate 5 Mg Tablet, 10 MG PO DAILY Prescribed by: MARLO HIGGINS on 03/08/20 1029 Clonidine HCl 0.1 Mg Tablet, 0.1 MG PO BID Prescribed by: MARLO HIGGINS on 03/08/20 1029 Furosemide 20 Mg Tablet, 20 MG PO DAILY Prescribed by: MARLO HIGGINS on 03/08/20 1029 Metoprolol Succinate 25 Mg Tab.er.24h, 25 MG PO DAILY Prescribed by: MARLO HIGGINS on 03/08/20 1029 Patient Home Medication List Home Medication List Reviewed: Yes Review of Systems Review of Systems Constitutional: see HPI EENTM: see HPI Respiratory: no symptoms reported Cardiovascular: no symptoms reported Genitourinary: see HPI Musculoskeletal: no symptoms reported Skin: no symptoms reported Psychiatric/Neurological: No Symptoms Reported Endocrine: No Symptoms Reported Past Thewsmq-Nlvhvb-Oefsdk Hx Patient Social History Alcohol Beverage of Choice: Rum, Wine Recent Foreign Travel: No Contact w/Someone Who Travel: No Recent Infectious Disease Expo: No Past Medical History Surgeries: Yes (PROSTATE) Prostatectomy Respiratory: No Cardiac: Yes Hypertension Neurological: No Genitourinary: Yes Prostate Problems Gastrointestinal: No Musculoskeletal: No Endocrine: No HEENT: No Cancer: Yes Prostate Psychosocial: No Physical Exam Vital Signs Vital Signs - First Documented 03/11/20 10:06 Temp 36.1 Pulse 79 Resp 21 B/P (MAP) 177/107 (130) Pulse Ox 94 O2 Delivery Room Air Capillary Refill : Less Than 3 Seconds Height, Weight, BMI Height: '" Weight: lbs. oz. kg; 31.00 BMI Method: General Appearance: WD/WN, no apparent distress Neck: non-tender, full range of motion Respiratory: no respiratory distress, no accessory muscle use Gastrointestinal: normal bowel sounds, soft, tenderness (Suprapubic) Extremities: normal range of motion, non-tender, pedal edema Neurologic/Psychiatric: alert, normal mood/affect, oriented x 3 Skin: normal color, warm/dry Progress/Results/Core Measures Suspected Sepsis Recent Fever Within 48 Hours: No Infection Criteria Present: None New/Unexplained Altered Menta: No Sepsis Screen: No Definite Risk SIRS Temperature: Pulse: 79 Respiratory Rate: 21 Laboratory Tests 03/11/20 10:28: White Blood Count 6.7 Blood Pressure 177 /107 Mean: 130 Laboratory Tests 03/11/20 10:28: Creatinine 1.59H, Platelet Count 305 Results/Orders Lab Results Laboratory Tests Test 03/11/20 10:28 03/11/20 10:38 Range/Units White Blood Count 6.7 4.3-11.0 10^3/uL Red Blood Count 5.04 4.30-5.52 10^6/uL Hemoglobin 16.4 13.3-17.7 g/dL Hematocrit 48 40-54 % Mean Corpuscular Volume 96 80-99 fL Mean Corpuscular Hemoglobin 33 25-34 pg Mean Corpuscular Hemoglobin Concent 34 32-36 g/dL Red Cell Distribution Width 12.8 10.0-14.5 % Platelet Count 305 130-400 10^3/uL Mean Platelet Volume 9.9 9.0-12.2 fL Immature Granulocyte % (Auto) 0 % Neutrophils (%) (Auto) 52 42-75 % Lymphocytes (%) (Auto) 37 12-44 % Monocytes (%) (Auto) 9 0-12 % Eosinophils (%) (Auto) 2 0-10 % Basophils (%) (Auto) 1 0-10 % Neutrophils # (Auto) 3.5 1.8-7.8 10^3/uL Lymphocytes # (Auto) 2.5 1.0-4.0 10^3/uL Monocytes # (Auto) 0.6 0.0-1.0 10^3/uL Eosinophils # (Auto) 0.1 0.0-0.3 10^3/uL Basophils # (Auto) 0.0 0.0-0.1 10^3/uL Immature Granulocyte # (Auto) 0.0 0.0-0.1 10^3/uL Sodium Level 137 135-145 MMOL/L Potassium Level 4.0 3.6-5.0 MMOL/L Chloride Level 99 98-107 MMOL/L Carbon Dioxide Level 25 21-32 MMOL/L Anion Gap 13 5-14 MMOL/L Blood Urea Nitrogen 28 H 7-18 MG/DL Creatinine 1.59 H 0.60-1.30 MG/DL Estimat Glomerular Filtration Rate 42 BUN/Creatinine Ratio 18 Glucose Level 88 70-105 MG/DL Calcium Level 9.2 8.5-10.1 MG/DL B-Type Natriuretic Peptide 74.8 <100.0 PG/ML Urine Color YELLOW Urine Clarity CLEAR Urine pH 5.5 5-9 Urine Specific [place] 1.020 1.016-1.022 Urine Protein NEGATIVE NEGATIVE Urine Glucose (UA) NEGATIVE NEGATIVE Urine Ketones NEGATIVE NEGATIVE Urine Nitrite NEGATIVE NEGATIVE Urine Bilirubin NEGATIVE NEGATIVE Urine Urobilinogen 0.2 < = 1.0 MG/DL Urine Leukocyte Esterase NEGATIVE NEGATIVE Urine RBC (Auto) NEGATIVE NEGATIVE Urine RBC RARE /HPF Urine WBC NONE /HPF Urine Squamous Epithelial Cells NONE /HPF Urine Crystals NONE /LPF Urine Bacteria NEGATIVE /HPF Urine Casts NONE /LPF Urine Mucus NEGATIVE /LPF Urine Culture Indicated NO My Orders Orders - JEFRY AZAR APRN Cbc With Automated Diff (03/11/20 10:20) Basic Metabolic Panel (03/11/20 10:20) BNP (03/11/20 10:20) Ua Culture If Indicated (03/11/20 10:20) Catheter(Urinary) Care .0300, 1500 (03/11/20 10:20) Clonidine Tablet (Catapres Tablet) (03/11/20 11:00) Medications Given in ED Current Medications Medications Dose Ordered Sig/Chung Route Start Time Stop Time Status Last Admin Dose Admin Clonidine HCl 0.1 mg ONCE ONCE PO 03/11/20 11:00 03/11/20 11:01 DC 03/11/20 11:04 0.1 MG Vital Signs/I&O 03/11/20 10:06 Temp 36.1 Pulse 79 Resp 21 B/P (MAP) 177/107 (130) Pulse Ox 94 O2 Delivery Room Air Capillary Refill : Less Than 3 Seconds Blood Pressure Mean: 130 Departure Impression Primary Impression: Urinary retention Disposition: 01 HOME, SELF-CARE Condition: Stable Departure-Patient Inst. Decision time for Depature: 11:31 Referrals: NO,LOCAL PHYSICIAN (PCP) Primary Care Physician DESTINI TAVERAS MD Patient Instructions: Urinary Retention Add. Discharge Instructions: 1. Keep the leg bag attached over the weekend. Follow up with your regular doctor OR Dr Taveras next week. All discharge instructions reviewed with patient and/or family. Voiced understanding. JEFRY AZAR B[employer]AKER OPERATOR Mar 11, 2020 10:26
[2020-03-11 10:45] LABS: BILIRUBIN,URINE NEGATIVE (NEGATIVE); CLARITY,URINE CLEAR; COLOR,URINE YELLOW; GLUCOSE, URINE (UA) NEGATIVE (NEGATIVE); KETONES,URINE NEGATIVE (NEGATIVE); LEUKOCYTE ESTERASE ,URINE NEGATIVE (NEGATIVE); NITRITE,URINE NEGATIVE (NEGATIVE); PH,URINE 5.5 (5-9); PROTEIN,URINE NEGATIVE (NEGATIVE)
[2020-03-11 10:46] LABS: BASOPHILS % (AUTO) 1 % (0-10); EOSINOPHILS # (AUTO) 0.1 10^3/uL (0.0-0.3); EOSINOPHILS % (AUTO) 2 % (0-10); HEMATOCRIT 48 % (40-54); HEMOGLOBIN 16.4 g/dL (13.3-17.7); LYMPHOCYTES # (AUTO) 2.5 10^3/uL (1.0-4.0); LYMPHOCYTES % (AUTO) 37 % (12-44); MEAN CORPUSCULAR HEMOGLOBIN 33 pg (25-34); MEAN CORPUSCULAR HGB CONC 34 g/dL (32-36); MEAN CORPUSCULAR VOLUME 96 fL (80-99); MEAN PLATELET VOLUME 9.9 fL (9.0-12.2); MONOCYTES # (AUTO) 0.6 10^3/uL (0.0-1.0); MONOCYTES % (AUTO) 9 % (0-12); NEUTROPHILS # (AUTO) 3.5 10^3/uL (1.8-7.8); NEUTROPHILS % (AUTO) 52 % (42-75); PLATELET COUNT 305 10^3/uL (130-400); WHITE BLOOD COUNT 6.7 10^3/uL (4.3-11.0)
[2020-03-11 10:55] LABS: BACTERIA,URINE NEGATIVE /HPF; RBC,URINE RARE /HPF
[2020-03-11 10:56] LABS: CALCIUM 9.2 MG/DL (8.5-10.1)
[2020-03-11 11:00] LABS: CREATININE SERUM 1.59 MG/DL (0.60-1.30)
[2020-03-11] MEDS ORDERED: cloNIDine 0.1 MG (CATAPRES) TAB PO ONE (11:00)
[2020-03-11 11:57] VITALS: BP 177/104
== END 2020-03-11 11:57 | disposition home or self-care (01) ==
LOC: EDUNIT# 09:57 → ER 09:59
DX: R33.9 Retention of urine, unspecified (principal); I10 Essential (primary) hypertension; Z85.46 Personal history of malignant neoplasm of prostate
CPT/HCPCS: 36415; 51702; 80048; 81000; 83880; 85025

== ENCOUNTER 2020-03-14 09:52 | Emergency (ER) | payer SELFPAY ==
[~2020-03-14] VITALS: Ht 177 cm; Wt 113.0 kg
[2020-03-14 10:10] VITALS: BP 178/99
--- NOTE | 2020-03-14 10:37 | NUR ---
LAILA REMOVED BY JEFRY.
--- NOTE | 2020-03-14 10:38 | ED GU-Male ---
General Chief Complaint: Catheter/Drain/Tube Problems Stated Complaint: CATHETER REMOVAL Nursing Triage Note: ARRIVED VIA WC TO ROOM 5. STATES HE WANTS HIS ULLOA OUT. Source: patient Exam Limitations: no limitations History of Present Illness Date Seen by Provider: Mar 14, 2020 Time Seen by Provider: 10:35 Initial Comments To Er with request for ulloa catheter removal. This was placed a few days ago for urinary retention. Timing/Duration: just prior to arrival, getting worse Severity/Quality: cramping Location: unknown Radiation: none Activities at Onset: none Prior Genitourinary Problems: none Associated Symptoms: denies symptoms Allergies and Home Medications Allergies Coded Allergies: No Known Drug Allergies (Unverified , 03/07/20) Home Medications Amlodipine Besylate 5 Mg Tablet, 10 MG PO DAILY Prescribed by: MARLO HIGGINS on 03/08/20 1029 Clonidine HCl 0.1 Mg Tablet, 0.1 MG PO BID Prescribed by: MARLO HIGGINS on 03/08/20 1029 Furosemide 20 Mg Tablet, 20 MG PO DAILY Prescribed by: MARLO HIGGINS on 03/08/20 1029 Metoprolol Succinate 25 Mg Tab.er.24h, 25 MG PO DAILY Prescribed by: MARLO HIGGINS on 03/08/20 1029 Patient Home Medication List Home Medication List Reviewed: Yes Review of Systems Review of Systems Constitutional: see HPI; No chills EENTM: see HPI Respiratory: no symptoms reported Cardiovascular: no symptoms reported Genitourinary: no symptoms reported Musculoskeletal: no symptoms reported Skin: no symptoms reported Psychiatric/Neurological: No Symptoms Reported Endocrine: No Symptoms Reported Hematologic/Lymphatic: No Symptoms Reported Past Fgjmuhy-Rbrmke-Mfbhxf Hx Patient Social History Alcohol Beverage of Choice: Rum, Wine Recent Foreign Travel: No Contact w/Someone Who Travel: No Recent Infectious Disease Expo: No Recent Hopitalizations: Yes (03/07/20 AT FOR HYPERTENSTION) Seasonal Allergies Seasonal Allergies: No Past Medical History Surgeries: Yes (PROSTATE) Prostatectomy Respiratory: No Cardiac: Yes Hypertension Neurological: No Genitourinary: Yes Prostate Problems Gastrointestinal: No Musculoskeletal: No Endocrine: No HEENT: No Cancer: Yes Prostate Psychosocial: No Integumentary: No Physical Exam Vital Signs Vital Signs - First Documented 03/14/20 10:10 Temp 36.3 Pulse 82 Resp 16 B/P (MAP) 178/99 (125) Pulse Ox 95 O2 Delivery Room Air Capillary Refill : Less Than 3 Seconds Height, Weight, BMI Height: '" Weight: lbs. oz. kg; 36.00 BMI Method: General Appearance: WD/WN, no apparent distress Neck: non-tender, full range of motion Cardiovascular: regular rate, rhythm Respiratory: no respiratory distress, no accessory muscle use Gastrointestinal: normal bowel sounds, non tender, soft Extremities: normal range of motion, non-tender Neurologic/Psychiatric: alert, normal mood/affect, oriented x 3 Skin: normal color, warm/dry Progress/Results/Core Measures Suspected Sepsis Recent Fever Within 48 Hours: No Infection Criteria Present: None New/Unexplained Altered Menta: No Sepsis Screen: No Definite Risk SIRS Temperature: Pulse: 82 Respiratory Rate: 16 Blood Pressure 178 /99 Mean: 125 Results/Orders Vital Signs/I&O 03/14/20 10:10 Temp 36.3 Pulse 82 Resp 16 B/P (MAP) 178/99 (125) Pulse Ox 95 O2 Delivery Room Air Capillary Refill : Less Than 3 Seconds Blood Pressure Mean: 125 Departure Communication (Admissions) I offered to let the patient stay here until he was able to urinate or go home and come back if he has troubles. He would prefer to go home and come back if he has troubles. The Ulloa catheter was removed. Impression Primary Impression: Encounter for Ulloa catheter removal Disposition: 01 HOME, SELF-CARE Condition: Stable Departure-Patient Inst. Decision time for Depature: 10:37 Referrals: NO,LOCAL PHYSICIAN (PCP) Primary Care Physician DESTINI TAVERAS MD Patient Instructions: NO INSTRUCTIONS GIVEN Add. Discharge Instructions: Go home and drink of plenty fluids. Return to ER if you are unable to urinate. You still need to follow-up with the urologist Dr. Taveras to help figure out why you have the urinary retention All discharge instructions reviewed with patient and/or family. Voiced understanding. JEFRY AZAR HOTEL LOBBY CONCIERGE Mar 14, 2020 10:38
[2020-03-14] MEDS ORDERED: PHEN-639 PO (16:33)
[2020-03-14] MEDS ORDERED: CEFU250T80 PO (16:33)
== END 2020-03-14 10:52 | disposition home or self-care (01) ==
LOC: EDUNIT# 09:52 → ER 09:54
DX: Z46.6 Encounter for fitting and adjustment of urinary device (principal); I10 Essential (primary) hypertension; Z85.46 Personal history of malignant neoplasm of prostate
CPT/HCPCS: 99281

== ENCOUNTER 2020-03-14 14:08 | Emergency (ER) | payer SELFPAY ==
[~2020-03-14] VITALS: Ht 177 cm; Wt 113.0 kg
--- NOTE | 2020-03-14 15:00 | ED GU-Female ---
General Chief Complaint: - Urinary Stated Complaint: CATHETER ISSUES Nursing Triage Note: ARRIVED VIA WC TO ROOM 08. WAS HERE THIS AM WANTING HIS URINARY CATHETER REMOVED ET CAME BACK THIS AFTERNOON WANTING IT BACK IN BECAUSE HE COULD NOT PEE. WHEN PT STOOD UP TO GET INTO BED HE URINATED IN HIS PANTS. Nursing Sepsis Screen: No Definite Risk Source: patient Exam Limitations: no limitations History of Present Illness Date Seen by Provider: Mar 14, 2020 Time Seen by Provider: 14:47 Initial Comments To ER with reports of inability to urinate. He had a Taylor catheter placed last week for the same. He insisted this be removed this morning. He is now back with reports that he is unable to urinate. He also c/o headache. Timing/Duration: constant Severity/Quality: moderate Location: unknown Radiation: none Activities at Onset: none Prior Genitourinary Problems: none Allergies and Home Medications Allergies Coded Allergies: No Known Drug Allergies (Unverified , 03/07/20) Home Medications Amlodipine Besylate 5 Mg Tablet, 10 MG PO DAILY Prescribed by: MARLO HIGGINS on 03/08/20 1029 Clonidine HCl 0.1 Mg Tablet, 0.1 MG PO BID Prescribed by: MARLO HIGGINS on 03/08/20 1029 Furosemide 20 Mg Tablet, 20 MG PO DAILY Prescribed by: MARLO HIGGINS on 03/08/20 1029 Metoprolol Succinate 25 Mg Tab.er.24h, 25 MG PO DAILY Prescribed by: MARLO HIGGINS on 03/08/20 1029 Patient Home Medication List Home Medication List Reviewed: Yes Review of Systems Review of Systems Constitutional: see HPI; No chills, No fever EENTM: see HPI Respiratory: no symptoms reported Cardiovascular: no symptoms reported Genitourinary: no symptoms reported Musculoskeletal: no symptoms reported Skin: no symptoms reported Psychiatric/Neurological: No Symptoms Reported Endocrine: No Symptoms Reported Hematologic/Lymphatic: No Symptoms Reported Past Argovxi-Pklhzc-Gqblox Hx Patient Social History Alcohol Beverage of Choice: Rum, Wine Recent Foreign Travel: No Contact w/Someone Who Travel: No Recent Infectious Disease Expo: No Recent Hopitalizations: Yes (03/07/20 AT FOR HYPERTENSTION) Seasonal Allergies Seasonal Allergies: No Past Medical History Surgeries: Yes (PROSTATE) Prostatectomy Respiratory: No Cardiac: Yes Hypertension Neurological: No Genitourinary: Yes Prostate Problems Gastrointestinal: No Musculoskeletal: No Endocrine: No HEENT: No Cancer: Yes Prostate Psychosocial: No Integumentary: No Physical Exam Vital Signs Vital Signs - First Documented 03/14/20 14:40 Temp 36.7 Pulse 94 Resp 16 B/P (MAP) 164/96 (118) Pulse Ox 95 O2 Delivery Room Air Capillary Refill : Less Than 3 Seconds Height, Weight, BMI Height: '" Weight: lbs. oz. kg; 36.00 BMI Method: General Appearance: WD/WN, no apparent distress Neck: non-tender, full range of motion Respiratory: no respiratory distress, no accessory muscle use Gastrointestinal: normal bowel sounds, soft Extremities: normal range of motion, non-tender Neurologic/Psychiatric: alert, normal mood/affect, oriented x 3 Skin: normal color, warm/dry He is incontinent urine upon standing. Reports he feels like his bladder is f ull however. Progress/Results/Core Measures Suspected Sepsis Recent Fever Within 48 Hours: No Infection Criteria Present: None New/Unexplained Altered Menta: No Sepsis Screen: No Definite Risk SIRS Temperature: Pulse: 94 Respiratory Rate: 16 Laboratory Tests 03/14/20 15:24: White Blood Count 11.7H Blood Pressure 164 /96 Mean: 118 Laboratory Tests 03/14/20 15:24: Creatinine 1.46H, Platelet Count 274 Results/Orders Lab Results Laboratory Tests Test 03/14/20 15:24 03/14/20 16:25 Range/Units White Blood Count 11.7 H 4.3-11.0 10^3/uL Red Blood Count 4.47 4.30-5.52 10^6/uL Hemoglobin 14.7 13.3-17.7 g/dL Hematocrit 43 40-54 % Mean Corpuscular Volume 96 80-99 fL Mean Corpuscular Hemoglobin 33 25-34 pg Mean Corpuscular Hemoglobin Concent 34 32-36 g/dL Red Cell Distribution Width 12.5 10.0-14.5 % Platelet Count 274 130-400 10^3/uL Mean Platelet Volume 10.0 9.0-12.2 fL Immature Granulocyte % (Auto) 0 % Neutrophils (%) (Auto) 73 42-75 % Lymphocytes (%) (Auto) 17 12-44 % Monocytes (%) (Auto) 9 0-12 % Eosinophils (%) (Auto) 1 0-10 % Basophils (%) (Auto) 0 0-10 % Neutrophils # (Auto) 8.5 H 1.8-7.8 10^3/uL Lymphocytes # (Auto) 2.0 1.0-4.0 10^3/uL Monocytes # (Auto) 1.0 0.0-1.0 10^3/uL Eosinophils # (Auto) 0.1 0.0-0.3 10^3/uL Basophils # (Auto) 0.1 0.0-0.1 10^3/uL Immature Granulocyte # (Auto) 0.0 0.0-0.1 10^3/uL Sodium Level 133 L 135-145 MMOL/L Potassium Level 4.4 3.6-5.0 MMOL/L Chloride Level 99 98-107 MMOL/L Carbon Dioxide Level 24 21-32 MMOL/L Anion Gap 10 5-14 MMOL/L Blood Urea Nitrogen 18 7-18 MG/DL Creatinine 1.46 H 0.60-1.30 MG/DL Estimat Glomerular Filtration Rate 46 BUN/Creatinine Ratio 12 Glucose Level 136 H 70-105 MG/DL Calcium Level 8.8 8.5-10.1 MG/DL B-Type Natriuretic Peptide 77.3 <100.0 PG/ML My Orders Orders - JEFRY AZAR APRN Ua Culture If Indicated (03/14/20 14:55) Ct Head Wo (03/14/20 15:04) Ct Abd/Pelvis Wo(Kidney Stone) (03/14/20 15:04) Cbc With Automated Diff (03/14/20 15:04) BNP (03/14/20 15:04) Basic Metabolic Panel (03/14/20 15:04) Tramadol Tablet (Ultram Tablet) (03/14/20 15:15) Medications Given in ED Current Medications Medications Dose Ordered Sig/Chung Route Start Time Stop Time Status Last Admin Dose Admin Tramadol HCl 50 mg ONCE ONCE PO 03/14/20 15:15 03/14/20 15:16 DC 03/14/20 15:35 50 MG Vital Signs/I&O 03/14/20 14:40 Temp 36.7 Pulse 94 Resp 16 B/P (MAP) 164/96 (118) Pulse Ox 95 O2 Delivery Room Air Capillary Refill : Less Than 3 Seconds Blood Pressure Mean: 118 Diagnostic Imaging Diagonstic Imaging: CT Comments NAME: MARLEN ANDERSON [facility] REC#: [id number] PT STATUS: REG ER : 1940 PHYSICIAN: JEFRY AZAR APRN ADMIT DATE: 03/14/20/ER Draft Date of Exam:03/14/20 CT ABD/PELVIS WO(KIDNEY STONE) CT ABD/PELVIS WO(KIDNEY STONE) TECHNIQUE: Unenhanced CT imaging of the abdomen and pelvis was performed. 2-D reformats are created and submitted for interpretation. Automatic exposure controls were utilized to optimize patient dose. INDICATION: Pelvic pain. COMPARISON: CT abdomen and pelvis from 03/08/2020. FINDINGS: Evaluation of the abdominal viscera is mildly limited without contrast. Lower chest: The lung bases are clear. No pericardial or pleural effusion. Peritoneum: No free intraperitoneal air or fluid. Liver and biliary system: Diffuse hypoattenuation of the liver is indicative of hepatic steatosis. No focal hepatic lesion. Cholecystectomy. No pathologic biliary duct dilatation. Spleen and Pancreas: Spleen is normal. Unenhanced pancreas is grossly normal. Adrenals: Normal. tract: No renal or ureteral calculi. No obstructive uropathy. Prostatectomy. Urinary bladder is partially filled with mild wall thickening that could be due to incomplete distention or cystitis. GI tract: Stomach is fluid filled without wall thickening. No bowel obstruction. No pericolonic inflammatory changes. Normal appendix. Vasculature and Lymph nodes: Normal-caliber aorta has moderate atherosclerotic plaquing. No abdominal or pelvic lymphadenopathy. Musculoskeletal: No concerning osseous lesion. IMPRESSION: 1. Mild wall thickening of the urinary bladder may be due to incomplete distention. Correlation with urinalysis is advised to assess for cystitis. 2. No hydronephrosis or urinary tract calculi. 3. Stable hepatic steatosis. Dictated on workstation # [id number] Dict: 03/14/20 1559 Trans: 03/14/20 1606 [id number] Interpreted by: AVA MATUTE MD Electronically signed by: Departure Communication (Admissions) aftet Bladder scan after pt was incontinent there were 74ml in bladder. Weight about 2 hours patient was still unable to urinate on command but had some incontinence and had soaked his sheets. This was quite upsetting to him. I put other Taylor catheter in for the sake of incontinence and retention, called Dr. Taveras's office. He will see the patient tentatively on of this week at 2 PM. Impression Primary Impression: Urinary incontinence Additional Impression: Urinary retention Disposition: HOME, SELF-CARE Condition: Stable Departure-Patient Inst. Decision time for Depature: 16:31 Referrals: NO,LOCAL PHYSICIAN (PCP) Primary Care Physician DESTINI TAVERAS MD Patient Instructions: Taylor Catheter, Male Add. Discharge Instructions: 1. You are scheduled to see Dr. Taveras this at 2 PM. Keep the catheter in place until then. Take the medication as directed. All discharge instructions reviewed with patient and/or family. Voiced understanding. Scripts Cefuroxime Axetil (Cefuroxime) 250 Mg Tablet 250 MG PO BID, #10 TAB Prov: JEFRY AZAR APRN 03/14/20 Phenazopyridine HCl (Pyridium) 100 Mg Tablet 100 MG PO BID, #6 TAB Prov: JEFRY AZAR APRN 03/14/20 Copy Copies To 1: DESTINI TAVERAS MD, PETER J APRN Mar 14, 2020 15:00
[2020-03-14 15:28] LABS: BASOPHILS # (AUTO) 0.1 10^3/uL (0.0-0.1); BASOPHILS % (AUTO) 0 % (0-10); EOSINOPHILS # (AUTO) 0.1 10^3/uL (0.0-0.3); EOSINOPHILS % (AUTO) 1 % (0-10); HEMATOCRIT 43 % (40-54); HEMOGLOBIN 14.7 g/dL (13.3-17.7); LYMPHOCYTES % (AUTO) 17 % (12-44); MEAN CORPUSCULAR HEMOGLOBIN 33 pg (25-34); MEAN CORPUSCULAR HGB CONC 34 g/dL (32-36); MEAN CORPUSCULAR VOLUME 96 fL (80-99); MONOCYTES % (AUTO) 9 % (0-12); NEUTROPHILS # (AUTO) 8.5 10^3/uL (1.8-7.8); NEUTROPHILS % (AUTO) 73 % (42-75); PLATELET COUNT 274 10^3/uL (130-400); WHITE BLOOD COUNT 11.7 10^3/uL (4.3-11.0)
[2020-03-14 15:38] LABS: POTASSIUM 4.4 MMOL/L (3.6-5.0)
[2020-03-14 15:40] LABS: CALCIUM 8.8 MG/DL (8.5-10.1)
[2020-03-14 15:44] LABS: CREATININE SERUM 1.46 MG/DL (0.60-1.30)
--- NOTE | 2020-03-14 16:07 | Diagnostic Imaging Report ---
CT ABD/PELVIS WO(KIDNEY STONE) TECHNIQUE: Unenhanced CT imaging of the abdomen and pelvis was performed. 2-D reformats are created and submitted for interpretation. Automatic exposure controls were utilized to optimize patient dose. INDICATION: Pelvic pain. COMPARISON: CT abdomen and pelvis from 03/08/2020. FINDINGS: Evaluation of the abdominal viscera is mildly limited without contrast. Lower chest: The lung bases are clear. No pericardial or pleural effusion. Peritoneum: No free intraperitoneal air or fluid. Liver and biliary system: Diffuse hypoattenuation of the liver is indicative of hepatic steatosis. No focal hepatic lesion. Cholecystectomy. No pathologic biliary duct dilatation. Spleen and Pancreas: Spleen is normal. Unenhanced pancreas is grossly normal. Adrenals: Normal. tract: No renal or ureteral calculi. No obstructive uropathy. Prostatectomy. Urinary bladder is partially filled with mild wall thickening that could be due to incomplete distention or cystitis. GI tract: Stomach is fluid filled without wall thickening. No bowel obstruction. No pericolonic inflammatory changes. Normal appendix. Vasculature and Lymph nodes: Normal-caliber aorta has moderate atherosclerotic plaquing. No abdominal or pelvic lymphadenopathy. Musculoskeletal: No concerning osseous lesion. IMPRESSION: 1. Mild wall thickening of the urinary bladder may be due to incomplete distention. Correlation with urinalysis is advised to assess for cystitis. 2. No hydronephrosis or urinary tract calculi. 3. Stable hepatic steatosis. Dictated by: Dictated on workstation # [id number]
--- NOTE | 2020-03-14 16:23 | Diagnostic Imaging Report ---
PROCEDURE: CT head without contrast. TECHNIQUE: Multiple contiguous axial images were obtained through the brain without the use of intravenous contrast. Auto Exposure Controls were utilized during the CT exam to meet ALARA standards for radiation dose reduction. INDICATION: Headache. COMPARISON: No prior studies are available for comparison. FINDINGS: Ventricles and sulci are prominent consistent with the patient's age. No sulcal effacement or midline shift is identified. No acute intra-axial or extra-axial hemorrhage is detected. Cisterns are patent. Visualized paranasal sinuses are clear. IMPRESSION: No acute intracranial process is detected. Dictated by: Dictated on workstation # [id number]
[2020-03-14 16:31] LABS: BILIRUBIN,URINE NEGATIVE (NEGATIVE); CLARITY,URINE SL CLOUDY; COLOR,URINE YELLOW; GLUCOSE, URINE (UA) TRACE (NEGATIVE); KETONES,URINE NEGATIVE (NEGATIVE); LEUKOCYTE ESTERASE ,URINE 1+ (NEGATIVE); NITRITE,URINE NEGATIVE (NEGATIVE); PH,URINE 7.5 (5-9); PROTEIN,URINE 1+ (NEGATIVE)
[2020-03-14] MEDS ORDERED: PHEN-639 PO (16:33)
[2020-03-14] MEDS ORDERED: CEFU250T80 PO (16:33)
[2020-03-14] MEDS ORDERED: cefTRIAXone 1,000 MG/2.86 ml vial (IM ONLY) IM SCH (16:45)
[2020-03-14] MEDS ORDERED: PHENAZOPYRIDINE 100 MG (PYRIDIUM) TABLET PO ONE (16:45)
[2020-03-14] MEDS ORDERED: LIDOCAINE 1% INJ 20 ML 20 ML VIAL INJ ONE (16:45)
[2020-03-14] MEDS ORDERED: cefTRIAXone FOR IV USE 1,000 MG in WATER (STERILE) FOR INJECTION 10 ML IV ONE (16:45)
[2020-03-14 16:50] LABS: RBC,URINE 25-50 /HPF
--- NOTE | 2020-03-14 16:50 | NUR ---
URINARY CATH CHANGED TO A LEG Bag.
[2020-03-14 16:51] LABS: BACTERIA,URINE TRACE /HPF
[2020-03-14 16:53] VITALS: BP 164/96
[2020-03-14] MEDS ORDERED: cefTRIAXone 1,000 MG/2.86 ml vial (IM ONLY) ONE (17:01)
== END 2020-03-14 16:53 | disposition home or self-care (01) ==
LOC: EDUNIT# 14:08 → ER 14:10
DX: R32 Unspecified urinary incontinence (principal); R33.9 Retention of urine, unspecified; R51.9 Headache, unspecified; I10 Essential (primary) hypertension; Z85.46 Personal history of malignant neoplasm of prostate
CPT/HCPCS: 36415; 51702; 70450; 74176; 80048; 81000; 83880; 85025; 87077; 87088; 87186

== ENCOUNTER 2020-03-25 05:12 | Emergency (ER) | payer SELFPAY ==
[~2020-03-25] VITALS: Ht 177 cm; Wt 113.0 kg
[~2020-03-25 05:12] MED LIST changes: +CEFU250T80 PO; +PHEN-639 PO
--- NOTE | 2020-03-25 05:33 | ED GU-Male ---
General Chief Complaint: - Urinary Stated Complaint: CAN'T URINATE Nursing Triage Note: C/O INABAILITY TO VOID SINCE 0000 Source: patient, old records History of Present Illness Date Seen by Provider: Mar 25, 2020 Time Seen by Provider: 05:21 Initial Comments PT ARRIVES VIA POV FROM HOME STATES "I CAN'T PEE" WANTS CATHETER PLACED STATES HE VOIDED " A LITTLE BIT" AROUND MIDNIGHT, OTHERWISE HAS NOT URINATED SINCE SOMETIME YESTERDAY C/O LOWER ABDOMINAL PRESSURE AND URGE TO URINATE NO FEVER NO NAUSEA/VOMITING HAS HISTORY OF SAME SEEN HERE AND ADMITTED 03/07-03/08/20 FOR HYPERTENSIVE URGENCY. PT'S FIRST VISIT HERE IN ER 03/11/20 FOR URINARY RETENTION AND ULLOA CATHETER WAS PLACED PT CAME BACK TO ER ON 03/14 WANTING CATHETER REMOVED. PT RETURN TO ER LATER THAT SAME DAY ON 03/14/20 WITH RETENTION AND INCONTINENCE AND WANTING CATHETER PUT BACK IN PT HAD LAB AND CT DONE AT THAT TIME. WAS DISMISSED WITH RX'S FOR CEFUROXIME AND PYRIDIUM, AND WAS TO FOLLOW UP WITH DR. TAVERAS 03/17/[address] TAVERAS REMOVED THE CATHETER AT THAT TIME HAS A FOLLOW UP APPOINTMENT WITH DR. TAVERAS NEXT WEEK PT HAS HISTORY OF PRIOR PROSTATECTOMY FOR CANCER IN 2007 ALSO HAD RADIATION TREATMENTS PT DOES NOT KNOW HIS MEDICATIONS OR WHAT HE TAKES THEM FOR PCP: STATES HE MOVED HERE FROM [place] 4 YEARS AGO, AND NEVER ESTABLISHED WITH A PCP HERE Allergies and Home Medications Allergies Coded Allergies: No Known Drug Allergies (Unverified , 03/07/20) Home Medications Amlodipine Besylate 5 Mg Tablet, 10 MG PO DAILY Prescribed by: MARLO HIGGINS on 03/08/20 1029 Bethanechol Chloride 10 Mg Tablet, 25 MG PO ACHS Prescribed by: DELMI ARANDA on 03/25/20 0617 Cefuroxime Axetil 250 Mg Tablet, 250 MG PO BID Prescribed by: JEFRY AZAR on 03/14/20 1633 Clonidine HCl 0.1 Mg Tablet, 0.1 MG PO BID Prescribed by: MARLO HIGGINS on 03/08/20 1029 Furosemide 20 Mg Tablet, 20 MG PO DAILY Prescribed by: MARLO HIGGNIS on 03/08/20 1029 Metoprolol Succinate 25 Mg Tab.er.24h, 25 MG PO DAILY Prescribed by: MARLO HIGGINS on 03/08/20 1029 Phenazopyridine HCl 100 Mg Tablet, 100 MG PO BID Prescribed by: JEFRY AZAR on 03/14/20 1633 Patient Home Medication List Home Medication List Reviewed: Yes Review of Systems Review of Systems Constitutional: no symptoms reported Gastrointestinal: see HPI Genitourinary: see HPI Past Wclyqba-Utwmcr-Srgvwq Hx Past Med/Social Hx: Reviewed and Corrections made Patient Social History Alcohol Use: Rarely Uses Number of Drinks Today: Alcohol Beverage of Choice: Rum, Wine Recreational Drug Use: No Smoking Status: Never a Smoker 2nd Hand Smoke Exposure: No Recent Foreign Travel: No Contact w/Someone Who Travel: No Recent Infectious Disease Expo: No Recent Hopitalizations: No Immunizations Up To Date Tetanus Booster (TDap): Unknown Seasonal Allergies Seasonal Allergies: No Past Medical History Surgeries: Yes (PROSTATE) Prostatectomy Respiratory: No Cardiac: Yes Chronic Edema/Swelling, Hypertension Neurological: No Genitourinary: Yes (PROSTATE CANCER, PROSTATECTOMY; URINARY RETENTION;RENAL INSUFFICIENCY) Prostate Problems Gastrointestinal: No Musculoskeletal: No Endocrine: No HEENT: No Cancer: Yes Prostate Did You Recieve Any Treatments: Yes What Type of Treatment Did You: Radiation, Surgical Intervention PROSTATE CANCER DX 2007 S/P PROSTATECTOMY AND EXTERNAL RADIATION TREATMENTS Psychosocial: No Integumentary: No Blood Disorders: No Physical Exam Vital Signs Vital Signs - First Documented 03/25/20 05:20 Temp 36.3 Pulse 95 Resp 18 B/P (MAP) 176/105 (128) Pulse Ox 95 O2 Delivery Room Air Capillary Refill : Less Than 3 Seconds Height, Weight, BMI Height: '" Weight: lbs. oz. kg; 36.00 BMI Method: General Appearance: other (WALKS SLOWLY, SLIGHTLY BENT AT WAIST) Cardiovascular: regular rate, rhythm Respiratory: normal breath sounds Gastrointestinal: tenderness (SUPRAPUBIC AREA. ), other (PT WITH ROTUND ABDOMEN, UNABLE TO PALPATE BLADDER AT THIS TIME) Extremities: pedal edema (4+ EDEMA ) Neurologic/Psychiatric: no motor/sensory deficits, alert, normal mood/affect Progress/Results/Core Measures Suspected Sepsis Recent Fever Within 48 Hours: No Infection Criteria Present: None New/Unexplained Altered Menta: No Sepsis Screen: No Definite Risk SIRS Temperature: Pulse: 95 Respiratory Rate: 18 Laboratory Tests 03/25/20 05:37: White Blood Count 7.2 Blood Pressure 176 /105 Mean: 128 Laboratory Tests 03/25/20 05:37: Creatinine 1.49H, Platelet Count 332 Results/Orders Lab Results Laboratory Tests Test 03/25/20 05:34 03/25/20 05:37 Range/Units Urine Color YELLOW Urine Clarity CLEAR Urine pH 7.0 5-9 Urine Specific [place] 1.015 L 1.016-1.022 Urine Protein TRACE H NEGATIVE Urine Glucose (UA) NEGATIVE NEGATIVE Urine Ketones NEGATIVE NEGATIVE Urine Nitrite NEGATIVE NEGATIVE Urine Bilirubin NEGATIVE NEGATIVE Urine Urobilinogen 0.2 < = 1.0 MG/DL Urine Leukocyte Esterase NEGATIVE NEGATIVE Urine RBC (Auto) TRACE-L NEGATIVE Urine RBC 0-2 /HPF Urine WBC 0-2 /HPF Urine Squamous Epithelial Cells NONE /HPF Urine Crystals NONE /LPF Urine Bacteria NEGATIVE /HPF Urine Casts NONE /LPF Urine Mucus NEGATIVE /LPF Urine Culture Indicated NO White Blood Count 7.2 4.3-11.0 10^3/uL Red Blood Count 4.52 4.30-5.52 10^6/uL Hemoglobin 14.7 13.3-17.7 g/dL Hematocrit 44 40-54 % Mean Corpuscular Volume 96 80-99 fL Mean Corpuscular Hemoglobin 33 25-34 pg Mean Corpuscular Hemoglobin Concent 34 32-36 g/dL Red Cell Distribution Width 12.0 10.0-14.5 % Platelet Count 332 130-400 10^3/uL Mean Platelet Volume 9.7 9.0-12.2 fL Immature Granulocyte % (Auto) 0 % Neutrophils (%) (Auto) 59 42-75 % Lymphocytes (%) (Auto) 30 12-44 % Monocytes (%) (Auto) 9 0-12 % Eosinophils (%) (Auto) 2 0-10 % Basophils (%) (Auto) 1 0-10 % Neutrophils # (Auto) 4.3 1.8-7.8 10^3/uL Lymphocytes # (Auto) 2.1 1.0-4.0 10^3/uL Monocytes # (Auto) 0.6 0.0-1.0 10^3/uL Eosinophils # (Auto) 0.2 0.0-0.3 10^3/uL Basophils # (Auto) 0.1 0.0-0.1 10^3/uL Immature Granulocyte # (Auto) 0.0 0.0-0.1 10^3/uL Sodium Level 136 135-145 MMOL/L Potassium Level 4.6 3.6-5.0 MMOL/L Chloride Level 101 98-107 MMOL/L Carbon Dioxide Level 25 21-32 MMOL/L Anion Gap 10 5-14 MMOL/L Blood Urea Nitrogen 26 H 7-18 MG/DL Creatinine 1.49 H 0.60-1.30 MG/DL Estimat Glomerular Filtration Rate 45 BUN/Creatinine Ratio 17 Glucose Level 113 H 70-105 MG/DL Calcium Level 8.5 8.5-10.1 MG/DL My Orders Orders - ROSIDELMI K DO Catheter(Urinary) Insert & Ass 03,15 (03/25/20 05:22) Bladder Scan (03/25/20 05:22) Ua Culture If Indicated (03/25/20 05:22) Basic Metabolic Panel (03/25/20 05:25) Cbc With Automated Diff (03/25/20 05:25) Vital Signs/I&O 03/25/20 05:20 Temp 36.3 Pulse 95 Resp 18 B/P (MAP) 176/105 (128) Pulse Ox 95 O2 Delivery Room Air Capillary Refill : Less Than 3 Seconds Blood Pressure Mean: 128 Progress Note : Progress Note BLADDER SCAN--74 ML ULLOA PLACED WITH RETURN OF > 150 ML CLEAR URINE, WITH IMPROVEMENT IN SYMPTOMS Departure Communication (Admissions) 0610--SPOKE WITH DR. TAVERAS, HE ADVISES TO INCREASE BETHANECHOL TO 25 MG QID, NO ANTIBIOTICS AT THIS TIME, KEEP ULLOA IN PLACE AND KEEP APPOINTMENT NEXT WEEK Impression Primary Impression: Urinary retention Disposition: 01 HOME, SELF-CARE Condition: Stable Departure-Patient Inst. Referrals: JAQUELIN COLEMAN MD (PCP/Family) Primary Care Physician DESTINI TAVERAS MD Patient Instructions: How to Care for Your Ulloa Catheter, Male, Urinary Retention (DC) Add. Discharge Instructions: ULLOA CARE INSTRUCTED WE ARE INCREASING YOUR DOSE OF BETHANECHOL TO 25 MG, AND YOU ARE TO GET THE NEW PRESCRIPTION FILLED TODAY AND START TAKING IT TODAY. THIS REPLACES YOUR BETHANECHOL 10 MG PILLS. KEEP YOUR APPOINTMENT NEXT WEEK WITH DR. TAVERAS. All discharge instructions reviewed with patient and/or family. Voiced understanding. Scripts Bethanechol Chloride (Urecholine) 10 Mg Tablet 25 MG PO ACHS, #100 TAB Prov: ROSI,DELMI K DO 03/25/20 DELMI ARANDA DO Mar 25, 2020 05:33
[2020-03-25 05:47] LABS: BILIRUBIN,URINE NEGATIVE (NEGATIVE); CLARITY,URINE CLEAR; COLOR,URINE YELLOW; GLUCOSE, URINE (UA) NEGATIVE (NEGATIVE); KETONES,URINE NEGATIVE (NEGATIVE); LEUKOCYTE ESTERASE ,URINE NEGATIVE (NEGATIVE); NITRITE,URINE NEGATIVE (NEGATIVE); PROTEIN,URINE TRACE (NEGATIVE)
[2020-03-25 05:48] LABS: BASOPHILS # (AUTO) 0.1 10^3/uL (0.0-0.1); BASOPHILS % (AUTO) 1 % (0-10); EOSINOPHILS # (AUTO) 0.2 10^3/uL (0.0-0.3); EOSINOPHILS % (AUTO) 2 % (0-10); HEMATOCRIT 44 % (40-54); HEMOGLOBIN 14.7 g/dL (13.3-17.7); LYMPHOCYTES # (AUTO) 2.1 10^3/uL (1.0-4.0); LYMPHOCYTES % (AUTO) 30 % (12-44); MEAN CORPUSCULAR HEMOGLOBIN 33 pg (25-34); MEAN CORPUSCULAR HGB CONC 34 g/dL (32-36); MEAN CORPUSCULAR VOLUME 96 fL (80-99); MEAN PLATELET VOLUME 9.7 fL (9.0-12.2); MONOCYTES # (AUTO) 0.6 10^3/uL (0.0-1.0); MONOCYTES % (AUTO) 9 % (0-12); NEUTROPHILS # (AUTO) 4.3 10^3/uL (1.8-7.8); NEUTROPHILS % (AUTO) 59 % (42-75); PLATELET COUNT 332 10^3/uL (130-400); WHITE BLOOD COUNT 7.2 10^3/uL (4.3-11.0)
[2020-03-25 06:02] LABS: POTASSIUM 4.6 MMOL/L (3.6-5.0)
[2020-03-25 06:03] LABS: CALCIUM 8.5 MG/DL (8.5-10.1)
[2020-03-25 06:04] LABS: BACTERIA,URINE NEGATIVE /HPF; RBC,URINE 0-2 /HPF; WBC,URINE 0-2 /HPF
[2020-03-25 06:08] LABS: CREATININE SERUM 1.49 MG/DL (0.60-1.30)
[2020-03-25] MEDS ORDERED: BTH10T PO (06:17)
[2020-03-25 06:19] VITALS: BP 155/91
== END 2020-03-25 06:21 | disposition home or self-care (01) ==
LOC: EDUNIT# 05:12 → ER 05:17
DX: R33.9 Retention of urine, unspecified (principal); I10 Essential (primary) hypertension; Z85.46 Personal history of malignant neoplasm of prostate
CPT/HCPCS: 36415; 51702; 80048; 81000; 85025

== ENCOUNTER 2020-04-01 07:50 | Emergency (ER) | payer SELFPAY ==
[~2020-04-01] VITALS: Ht 177 cm; Wt 113.0 kg
[~2020-04-01 07:50] MED LIST changes: +BTH10T PO
--- NOTE | 2020-04-01 08:06 | ED GU-Male ---
General Chief Complaint: - Urinary Stated Complaint: UNABLE TO URINATE Source: patient Exam Limitations: no limitations History of Present Illness Date Seen by Provider: Apr 01, 2020 Time Seen by Provider: 07:51 Initial Comments Patient presents ER by private conveyance with chief complaint of pressure and inability to micturate. He says he has not been to urinate since last night and his been having this problem for several months. He's had for trips to the ER and has been scoped by Dr. Taveras. He's had his prostate removed surgically in the past. He was put on a new medicine but he does not report is called and does not feel is helping. He's had to wear a Diaz catheter a few days at a time but since he got out last week he has been having difficulty urinating again. He's not having any fevers chills nausea sweats or hematuria. Allergies and Home Medications Allergies Coded Allergies: No Known Drug Allergies (Unverified , 03/07/20) Home Medications Amlodipine Besylate 5 Mg Tablet, 10 MG PO DAILY Prescribed by: MARLO HIGGINS on 03/08/20 1029 Bethanechol Chloride 10 Mg Tablet, 25 MG PO ACHS Prescribed by: DELMI ARANDA on 03/25/20 0617 Cefuroxime Axetil 250 Mg Tablet, 250 MG PO BID Prescribed by: JEFRY AZAR on 03/14/20 1633 Clonidine HCl 0.1 Mg Tablet, 0.1 MG PO BID Prescribed by: MARLO HIGGINS on 03/08/20 1029 Furosemide 20 Mg Tablet, 20 MG PO DAILY Prescribed by: MARLO HIGGINS on 03/08/20 1029 Metoprolol Succinate 25 Mg Tab.er.24h, 25 MG PO DAILY Prescribed by: MARLO HIGGINS on 03/08/20 1029 Phenazopyridine HCl 100 Mg Tablet, 100 MG PO BID Prescribed by: JEFRY AZAR on 03/14/20 1633 Patient Home Medication List Home Medication List Reviewed: Yes Review of Systems Review of Systems Constitutional: No chills, No diaphoresis EENTM: No ear discharge, No ear pain Respiratory: No cough, No short of breath Cardiovascular: No chest pain, No palpitations Gastrointestinal: abdominal pain (Sup); No diarrhea, No nausea, No vomiting Genitourinary: denies burning, denies discharge Musculoskeletal: No back pain, No joint pain All Other Systemes Reviewed Negative Unless Noted: Yes Past Ucmapkf-Pgewbi-Sexbtd Hx Patient Social History Alcohol Use: Regular Use Alcohol Beverage of Choice: Rum, Wine Recreational Drug Use: No Smoking Status: Never a Smoker 2nd Hand Smoke Exposure: No Recent Foreign Travel: No Contact w/Someone Who Travel: No Recent Hopitalizations: No Immunizations Up To Date Tetanus Booster (TDap): Unknown Seasonal Allergies Seasonal Allergies: No Past Medical History Surgeries: Yes (PROSTATE) Prostatectomy Respiratory: No Cardiac: Yes Chronic Edema/Swelling, Hypertension Neurological: No Genitourinary: Yes (PROSTATE CANCER, PROSTATECTOMY; URINARY RETENTION;RENAL INSUFFICIENCY) Prostate Problems Gastrointestinal: No Musculoskeletal: No Endocrine: No HEENT: No Cancer: Yes Prostate Did You Recieve Any Treatments: Yes What Type of Treatment Did You: Radiation, Surgical Intervention Psychosocial: No Integumentary: No Blood Disorders: No Physical Exam Vital Signs Vital Signs - First Documented 04/01/20 08:00 Temp 36.5 Pulse 81 Resp 20 B/P (MAP) 160/95 (116) Pulse Ox 97 O2 Delivery Room Air Capillary Refill : Height, Weight, BMI Height: '" Weight: lbs. oz. kg; 36.00 BMI Method: General Appearance: WD/WN, mild distress HEENT: PERRL/EOMI, pharynx normal Neck: full range of motion, normal inspection Cardiovascular: normal peripheral pulses, regular rate, rhythm Respiratory: no respiratory distress, no accessory muscle use Gastrointestinal: normal bowel sounds, soft, tenderness (suprapubic) Neurologic/Psychiatric: alert, normal mood/affect, oriented x 3 Skin: normal color, warm/dry Progress/Results/Core Measures Suspected Sepsis SIRS Temperature: Pulse: Respiratory Rate: Blood Pressure / Mean: Results/Orders Lab Results Laboratory Tests Test 04/01/20 08:11 Range/Units Urine Color YELLOW Urine Clarity SL CL[place]DY Urine pH 5.5 5-9 Urine Specific [place] 1.020 1.016-1.022 Urine Protein NEGATIVE NEGATIVE Urine Glucose (UA) NEGATIVE NEGATIVE Urine Ketones NEGATIVE NEGATIVE Urine Nitrite NEGATIVE NEGATIVE Urine Bilirubin NEGATIVE NEGATIVE Urine Urobilinogen 0.2 < = 1.0 MG/DL Urine Leukocyte Esterase 2+ H NEGATIVE Urine RBC (Auto) 1+ H NEGATIVE Urine RBC 0-2 /HPF Urine WBC 25-50 H /HPF Urine Squamous Epithelial Cells NONE /HPF Urine Crystals NONE /LPF Urine Bacteria FEW H /HPF Urine Casts NONE /LPF Urine Mucus NEGATIVE /LPF Urine Culture Indicated YES My Orders Orders - TARA CHAU Ua Culture If Indicated (04/01/20 07:57) Urine Culture (04/01/20 08:11) Ceftriaxone For Im Use (Rocephin For Im (04/01/20 09:00) Lidocaine 1% Inj 20 Ml (Xylocaine 1% Inj (04/01/20 09:00) Vital Signs/I&O 04/01/20 08:00 Temp 36.5 Pulse 81 Resp 20 B/P (MAP) 160/95 (116) Pulse Ox 97 O2 Delivery Room Air Capillary Refill : Progress Note #1: Time: 08:05 Progress Note Plan to place a Diaz catheter and then we will discuss the case with the urologist after we know how much urine he is withholding. Progress Note #2: Time: 09:08 Progress Note The patient has had 225 cc of urine out. He is feeling some relief. He says he is already on 2-1/2 tablets 4 times a day of Urecholine. I suspect that he is taking 10 mg tablets for a total of [address] Taveras wants him to take 2x 25 mg tablets and hold the others. Consults Consults : Consulting Physician: DESTINI TAVERAS MD Consults Notes Leave diaz in and they will take it out Saturday. Double Urecholine. Bactrim DS. Departure Impression Primary Impression: Urinary tract infection Qualified Codes: N30.00 - Acute cystitis without hematuria Additional Impression: Urinary retention Disposition: 01 HOME, SELF-CARE Condition: Stable Departure-Patient Inst. Decision time for Depature: 09:00 Referrals: JAQUELIN COLEMAN MD (PCP/Family) Primary Care Physician Patient Instructions: Urinary Tract Infection, Adult (DC), Urinary Retention Add. Discharge Instructions: Leave the Diaz catheter in until Saturday. Present to Dr. Taveras's office and he will remove it there. Keep your follow-up appointment on Saturday. Drink plenty fluids. Bactrim one tablet twice a day for the next 10 days. Take with food. Stop taking the Urecholine that you're currently on. felt finishing supervisor the prescription and start taking 2 of the 25 mg tablets of Urecholine 4 times a day. Total of 50 mg each dose. All discharge instructions reviewed with patient and/or family. Voiced understanding. Scripts [urecholine] No Conflict Check 25 MG PO ACHS for 14 Days, #30 TAB 0 Refills Prov: TARA CHAU 04/01/20 TARA CHAU Apr 01, 2020 08:06
[2020-04-01 08:18] LABS: BILIRUBIN,URINE NEGATIVE (NEGATIVE); CLARITY,URINE SL CLOUDY; COLOR,URINE YELLOW; GLUCOSE, URINE (UA) NEGATIVE (NEGATIVE); KETONES,URINE NEGATIVE (NEGATIVE); LEUKOCYTE ESTERASE ,URINE 2+ (NEGATIVE); NITRITE,URINE NEGATIVE (NEGATIVE); PH,URINE 5.5 (5-9); PROTEIN,URINE NEGATIVE (NEGATIVE)
[2020-04-01 08:26] LABS: BACTERIA,URINE FEW /HPF; RBC,URINE 0-2 /HPF; WBC,URINE 25-50 /HPF
[2020-04-01] MEDS ORDERED: LIDOCAINE 1% INJ 20 ML 20 ML VIAL INJ ONE (09:00)
[2020-04-01] MEDS ORDERED: cefTRIAXone 1,000 MG/2.86 ml vial (IM ONLY) IM ONE (09:00)
[2020-04-01] MEDS ORDERED: URECHOLINE PO ×2 (09:15→09:22)
[2020-04-01 09:24] VITALS: BP 130/80
== END 2020-04-01 09:24 | disposition home or self-care (01) ==
LOC: EDUNIT# 07:50 → ER 07:51
DX: N39.0 Urinary tract infection, site not specified (principal); R33.9 Retention of urine, unspecified; I10 Essential (primary) hypertension; Z85.46 Personal history of malignant neoplasm of prostate
CPT/HCPCS: 51702; 81000; 87077; 87088; 87186

== ENCOUNTER 2020-06-29 08:08 | Emergency (ER) | payer SELFPAY ==
[~2020-06-29] VITALS: Ht 175.2 cm; Wt 112.6 kg
[~2020-06-29 08:08] MED LIST changes: +URECHOLINE PO
--- NOTE | 2020-06-29 08:25 | ED GU-Male ---
General Chief Complaint: - Urinary Stated Complaint: DIFFICULTY URINATING Source: patient, old records Exam Limitations: no limitations History of Present Illness Date Seen by Provider: Jun 29, 2020 Time Seen by Provider: 08:15 Initial Comments Patient is an 80-year-old male who presents to the emergency department today with a chief complaint of inability to urinate. Patient states his symptoms started last night. He states he was able to go just a little bit and this morning was able to produce just about a thimble full of urine. He denies any dysuria, urgency or frequency. Patient states that he has had some increased swelling in his lower extremities. His doctor at [facility] placed him on a water pill recently. He states he has been taking his medications as directed. He denies any shortness of breath or chest pain but has had some decreased exercise tolerance. Patient states that when he gets up and does anything he becomes a little short of breath. He denies any history of congestive heart failure. He does have a history of hypertension. He states he took his medications today but his blood pressure is quite high with a diastolic over 100 and a systolic blood pressure over 200. No problems with bowel movements. He states he goes every day sometimes twice a day. Patient states he is not having abdominal pain just abdominal fullness. He does now have the urge to urinate but states that he cannot. He sees Dr. Roldan as his urologist. He states it has been a while since he seen him. Patient cannot recall the last time he had a catheter placed however on review of the medical record it appears it was in March 2020. All other review of systems reviewed and negative except as stated. Timing/Duration: yesterday Severity/Quality: moderate Location: suprapubic Radiation: none Activities at Onset: none Prior Genitourinary Problems: similar symptoms Associated Symptoms: abdominal pain ("fullness"), other (swelling in his legs) Allergies and Home Medications Allergies Coded Allergies: No Known Drug Allergies (Unverified , 03/07/20) Home Medications Amlodipine Besylate 5 Mg Tablet, 10 MG PO DAILY Prescribed by: MARLO HIGGINS on 03/08/20 1029 Bethanechol Chloride 10 Mg Tablet, 25 MG PO ACHS Prescribed by: DELMI ARANDA on 03/25/20 0617 Cefuroxime Axetil 250 Mg Tablet, 250 MG PO BID Prescribed by: JEFRY AZAR on 03/14/20 1633 Clonidine HCl 0.1 Mg Tablet, 0.1 MG PO BID Prescribed by: MARLO HIGGINS on 03/08/20 1029 Furosemide 20 Mg Tablet, 20 MG PO DAILY Prescribed by: MARLO HIGGINS on 03/08/20 1029 Metoprolol Succinate 25 Mg Tab.er.24h, 25 MG PO DAILY Prescribed by: MARLO HIGGINS on 03/08/20 1029 Phenazopyridine HCl 100 Mg Tablet, 100 MG PO BID Prescribed by: JEFRY AZAR on 03/14/20 1633 [urecholine] , 50 MG PO ACHS Prescribed by: TARA CHAU on 04/01/20 0922 Patient Home Medication List Home Medication List Reviewed: Yes Review of Systems Review of Systems Constitutional: see HPI Respiratory: dyspnea on exertion Cardiovascular: edema Gastrointestinal: other (Lower abdominal fullness) Musculoskeletal: no symptoms reported Skin: no symptoms reported All Other Systemes Reviewed Negative Unless Noted: Yes Past Vpdmnvb-Bnaatn-Gwtbht Hx Patient Social History Alcohol Use: Occasionally Uses Number of Drinks Today: HH Alcohol Beverage of Choice: Rum, Wine Smoking Status: Never a Smoker 2nd Hand Smoke Exposure: No Recent Hopitalizations: No Immunizations Up To Date Tetanus Booster (TDap): Unknown Seasonal Allergies Seasonal Allergies: No Past Medical History Surgeries: Yes (PROSTATE) Prostatectomy Respiratory: No Cardiac: Yes Chronic Edema/Swelling, Hypertension Neurological: No Genitourinary: Yes (PROSTATE CANCER, PROSTATECTOMY; URINARY RETENTION;RENAL INSUFFICIENCY) Prostate Problems Gastrointestinal: No Musculoskeletal: No Endocrine: No HEENT: No Cancer: Yes Prostate Did You Recieve Any Treatments: Yes What Type of Treatment Did You: Radiation, Surgical Intervention Psychosocial: No Integumentary: No Blood Disorders: No Physical Exam Vital Signs Vital Signs - First Documented 06/29/20 08:12 Temp 36.2 Pulse 99 Resp 18 B/P (MAP) 200/110 (140) Pulse Ox 94 O2 Delivery Room Air Capillary Refill : Height, Weight, BMI Height: '" Weight: lbs. oz. kg; 36.00 BMI Method: General Appearance: WD/WN, no apparent distress HEENT: normal ENT inspection Cardiovascular: regular rate, rhythm, no gallop Respiratory: lungs clear, normal breath sounds, no respiratory distress, no accessory muscle use Gastrointestinal: distended Extremities: pedal edema (2-3+ pitting edema bilateral lower extremities) Neurologic/Psychiatric: alert, normal mood/affect, oriented x 3 Skin: normal color, warm/dry Progress/Results/Core Measures Suspected Sepsis SIRS Temperature: Pulse: Respiratory Rate: Laboratory Tests 06/29/20 08:50: White Blood Count 7.2 Blood Pressure / Mean: Laboratory Tests 06/29/20 08:50: Creatinine 1.56H, Platelet Count 266 Results/Orders Lab Results Laboratory Tests Test 06/29/20 08:50 Range/Units White Blood Count 7.2 4.3-11.0 10^3/uL Red Blood Count 4.53 4.30-5.52 10^6/uL Hemoglobin 14.6 13.3-17.7 g/dL Hematocrit 43 40-54 % Mean Corpuscular Volume 95 80-99 fL Mean Corpuscular Hemoglobin 32 25-34 pg Mean Corpuscular Hemoglobin Concent 34 32-36 g/dL Red Cell Distribution Width 12.5 10.0-14.5 % Platelet Count 266 130-400 10^3/uL Mean Platelet Volume 9.9 9.0-12.2 fL Immature Granulocyte % (Auto) 0 % Neutrophils (%) (Auto) 54 42-75 % Lymphocytes (%) (Auto) 34 12-44 % Monocytes (%) (Auto) 10 0-12 % Eosinophils (%) (Auto) 2 0-10 % Basophils (%) (Auto) 1 0-10 % Neutrophils # (Auto) 3.9 1.8-7.8 10^3/uL Lymphocytes # (Auto) 2.4 1.0-4.0 10^3/uL Monocytes # (Auto) 0.7 0.0-1.0 10^3/uL Eosinophils # (Auto) 0.1 0.0-0.3 10^3/uL Basophils # (Auto) 0.0 0.0-0.1 10^3/uL Immature Granulocyte # (Auto) 0.0 0.0-0.1 10^3/uL Urine Color YELLOW Urine Clarity CLEAR Urine pH 7.0 5-9 Urine Specific [place] 1.020 1.016-1.022 Urine Protein TRACE H NEGATIVE Urine Glucose (UA) NEGATIVE NEGATIVE Urine Ketones NEGATIVE NEGATIVE Urine Nitrite NEGATIVE NEGATIVE Urine Bilirubin NEGATIVE NEGATIVE Urine Urobilinogen 0.2 < = 1.0 MG/DL Urine Leukocyte Esterase NEGATIVE NEGATIVE Urine RBC (Auto) NEGATIVE NEGATIVE Urine RBC 0-2 /HPF Urine WBC 2-5 /HPF Urine Squamous Epithelial Cells 0-2 /HPF Urine Crystals NONE /LPF Urine Bacteria TRACE /HPF Urine Casts NONE /LPF Urine Mucus SMALL H /LPF Urine Culture Indicated NO Sodium Level 139 135-145 MMOL/L Potassium Level 4.2 3.6-5.0 MMOL/L Chloride Level 103 98-107 MMOL/L Carbon Dioxide Level 28 21-32 MMOL/L Anion Gap 8 5-14 MMOL/L Blood Urea Nitrogen 21 H 7-18 MG/DL Creatinine 1.56 H 0.60-1.30 MG/DL Estimat Glomerular Filtration Rate 43 BUN/Creatinine Ratio 13 Glucose Level 93 70-105 MG/DL Calcium Level 8.6 8.5-10.1 MG/DL My Orders Orders - GARY ORTEGA MD Ed Iv/Invasive Line Start (06/29/20 08:42) Cbc With Automated Diff (06/29/20 08:42) Basic Metabolic Panel (06/29/20 08:42) Ua Culture If Indicated (06/29/20 08:42) Bladder Scan (06/29/20 08:42) Lidocaine 2% (Urojet) (Xylocaine Urojet) (06/29/20 09:00) Lidocaine 2% (Urojet) (Xylocaine Urojet) (06/29/20 08:44) Furosemide Injection (Lasix Injection) (06/29/20 10:15) Medications Given in ED Current Medications Medications Dose Ordered Sig/Chung Route Start Time Stop Time Status Last Admin Dose Admin Lidocaine HCl 10 ml ONCE ONCE TOP 06/29/20 09:00 06/29/20 09:01 DC 06/29/20 09:05 10 ML Vital Signs/I&O 06/29/20 08:12 Temp 36.2 Pulse 99 Resp 18 B/P (MAP) 200/110 (140) Pulse Ox 94 O2 Delivery Room Air Capillary Refill : Progress Note : Time: 10:18 Progress Note 80-year-old male presents to the emergency department today with a chief complaint of inability to urinate. Patient evaluation today includes a physical exam, CBC, Chem-7, urinalysis. Patient is treated in the emergency room with 40 mg of Lasix for his significant lower extremity edema. Patient has a mild increase in his serum creatinine which seems to be close to the baseline of previous labs. He is eager to go home. He wants to leave with a Taylor catheter in place. Patient will be referred to follow-up back with . Patient has no clinical or objective findings to warrant further studies from the emergency department at this time. He does not meet any type of admission criteria. Patient is advised to take increased Lasix over the next 3 days, 40 mg once a day. He is agreeable with this plan of care. All questions are soug ht and answered. Patient is stable for discharge. Departure Impression Primary Impression: Acute urinary retention Disposition: HOME, SELF-CARE Condition: Stable Departure-Patient Inst. Decision time for Depature: 10:19 Referrals: JAQUELIN COLEMAN MD (PCP/Family) Primary Care Physician DESTINI TAVERAS MD Patient Instructions: Taylor Catheter, Male Add. Discharge Instructions: Please call 's office for a follow-up appointment to have your catheter removed. I would like you to take an increased dose of Lasix daily for the next 3 days. You have been given 40 mg here in the emergency department. Please take 40 mg at home once a day through Saturday. Please keep your follow-up appointments with your primary care physician. Return to the emergency room for any fevers, abdominal pain, other emergent concerns. GARY ORTEGA MD Jun 29, 2020 08:25
[2020-06-29] MEDS ORDERED: LIDOCAINE UROJET 2% GEL 10 ML PKG ONE (08:44)
[2020-06-29] MEDS ORDERED: LIDOCAINE UROJET 2% GEL 10 ML PKG TOP ONE (09:00)
[2020-06-29 09:02] LABS: BILIRUBIN,URINE NEGATIVE (NEGATIVE); CLARITY,URINE CLEAR; COLOR,URINE YELLOW; GLUCOSE, URINE (UA) NEGATIVE (NEGATIVE); KETONES,URINE NEGATIVE (NEGATIVE); LEUKOCYTE ESTERASE ,URINE NEGATIVE (NEGATIVE); NITRITE,URINE NEGATIVE (NEGATIVE); PROTEIN,URINE TRACE (NEGATIVE)
[2020-06-29 09:03] LABS: BASOPHILS % (AUTO) 1 % (0-10); EOSINOPHILS # (AUTO) 0.1 10^3/uL (0.0-0.3); EOSINOPHILS % (AUTO) 2 % (0-10); HEMATOCRIT 43 % (40-54); HEMOGLOBIN 14.6 g/dL (13.3-17.7); LYMPHOCYTES # (AUTO) 2.4 10^3/uL (1.0-4.0); LYMPHOCYTES % (AUTO) 34 % (12-44); MEAN CORPUSCULAR HEMOGLOBIN 32 pg (25-34); MEAN CORPUSCULAR HGB CONC 34 g/dL (32-36); MEAN CORPUSCULAR VOLUME 95 fL (80-99); MEAN PLATELET VOLUME 9.9 fL (9.0-12.2); MONOCYTES # (AUTO) 0.7 10^3/uL (0.0-1.0); MONOCYTES % (AUTO) 10 % (0-12); NEUTROPHILS # (AUTO) 3.9 10^3/uL (1.8-7.8); NEUTROPHILS % (AUTO) 54 % (42-75); PLATELET COUNT 266 10^3/uL (130-400); WHITE BLOOD COUNT 7.2 10^3/uL (4.3-11.0)
[2020-06-29 09:14] LABS: BACTERIA,URINE TRACE /HPF; RBC,URINE 0-2 /HPF; SQUAMOUS EPITHELIAL CELL,UR 0-2 /HPF
[2020-06-29 09:19] LABS: POTASSIUM 4.2 MMOL/L (3.6-5.0)
[2020-06-29 09:20] LABS: CALCIUM 8.6 MG/DL (8.5-10.1)
[2020-06-29 09:24] LABS: CREATININE SERUM 1.56 MG/DL (0.60-1.30)
[2020-06-29] MEDS ORDERED: FUROSEMIDE 40 MG/4 ML INJ (LASIX) IVP ONE (10:15)
[2020-06-29 10:28] VITALS: BP 199/118
== END 2020-06-29 10:28 | disposition home or self-care (01) ==
LOC: EDUNIT# 08:08 → ER 08:09
DX: R33.9 Retention of urine, unspecified (principal); I10 Essential (primary) hypertension; Z85.46 Personal history of malignant neoplasm of prostate
CPT/HCPCS: 36415; 51702; 80048; 81000; 85025

== ENCOUNTER 2020-10-11 13:06 | Emergency (ER) | payer SELFPAY ==
[~2020-10-11] VITALS: Ht 175 cm; Wt 115.0 kg
--- NOTE | 2020-10-11 13:23 | ED GU-Female ---
General Chief Complaint: - Urinary Stated Complaint: UNABLE TO URINATE Source: patient Exam Limitations: no limitations History of Present Illness Date Seen by Provider: Oct 11, 2020 Time Seen by Provider: 13:23 Initial Comments This is an 80-year-old male who presents to the ER via POV with complaints of inability to urinate. States that he has been having difficulty urinating and has been evaluated and treated by Dr. Jorge. He has follow-up with him next month. States he is able to urinate some in the morning and sometimes in the evenings but in afternoon he is unable to urinate at all. States that when this happens he does not drink fluids. Additionally he has severe peripheral edema which he states has been ongoing for the past 5 months. States that he was seen at this emergency department and told he needs to double his Lasix from 20 mg to 40 mg, however his provider has not made this adjustment. He denies fever, chills, cough, shortness of breath, nausea, vomiting, constipation, diarrhea. States that he has suprapubic tenderness and feels like he needs to urinate. Allergies and Home Medications Allergies Coded Allergies: No Known Drug Allergies (Unverified , 03/07/20) Home Medications Amlodipine Besylate 5 Mg Tablet, 10 MG PO DAILY Prescribed by: MARLO HIGGINS on 03/08/20 1029 Bethanechol Chloride 10 Mg Tablet, 25 MG PO ACHS Prescribed by: DELMI ARANDA on 03/25/20 0617 Cefuroxime Axetil 250 Mg Tablet, 250 MG PO BID Prescribed by: JEFRY AZAR on 03/14/20 1633 Clonidine HCl 0.1 Mg Tablet, 0.1 MG PO BID Prescribed by: MARLO HIGGINS on 03/08/20 1029 Furosemide 20 Mg Tablet, 20 MG PO DAILY Prescribed by: MARLO HIGGINS on 03/08/20 1029 Furosemide 40 Mg Tablet, 40 MG PO DAILY Prescribed by: ANTONIO NGO on 10/11/20 1525 Metoprolol Succinate 25 Mg Tab.er.24h, 25 MG PO DAILY Prescribed by: MARLO HIGGINS on 03/08/20 1029 Phenazopyridine HCl 100 Mg Tablet, 100 MG PO BID Prescribed by: JEFRY AZAR on 03/14/20 1633 Potassium Chloride 10 Meq Tab.er.prt, 10 MEQ PO DAILY Prescribed by: ANTONIO NGO on 10/11/20 1525 [urecholine] , 50 MG PO ACHS Prescribed by: TARA CHAU on 04/01/20 0922 Patient Home Medication List Home Medication List Reviewed: Yes Review of Systems Review of Systems Constitutional: no symptoms reported EENTM: no symptoms reported Respiratory: no symptoms reported Cardiovascular: no symptoms reported Gastrointestinal: see HPI Genitourinary: see HPI Musculoskeletal: no symptoms reported Skin: no symptoms reported Psychiatric/Neurological: No Symptoms Reported Endocrine: No Symptoms Reported Hematologic/Lymphatic: No Symptoms Reported Past Iwqljjw-[id number]-Zezzqe Hx Patient Social History Alcohol Beverage of Choice: Rum, Wine 2nd Hand Smoke Exposure: No Recent Hopitalizations: No Immunizations Up To Date Tetanus Booster (TDap): Unknown Seasonal Allergies Seasonal Allergies: No Past Medical History Surgeries: Yes (PROSTATE) Prostatectomy Respiratory: No Cardiac: Yes Chronic Edema/Swelling, Hypertension Neurological: No Genitourinary: Yes (PROSTATE CANCER, PROSTATECTOMY; URINARY RETENTION;RENAL INSUFFICIENCY) Prostate Problems Gastrointestinal: No Musculoskeletal: No Endocrine: No HEENT: No Cancer: Yes Prostate Did You Recieve Any Treatments: Yes What Type of Treatment Did You: Radiation, Surgical Intervention Psychosocial: No Integumentary: No Blood Disorders: No Physical Exam Vital Signs Vital Signs - First Documented 10/11/20 13:10 Temp 37.1 Pulse 98 Resp 16 B/P (MAP) 227/123 (157) Pulse Ox 93 O2 Delivery Room Air Capillary Refill : Height, Weight, BMI Height: '" Weight: lbs. oz. kg; 36.00 BMI Method: General Appearance: WD/WN, no apparent distress HEENT: PERRL/EOMI, normal ENT inspection, pharynx normal Neck: full range of motion, normal inspection Cardiovascular: normal peripheral pulses, regular rate, rhythm, no murmur Respiratory: chest non-tender, lungs clear, normal breath sounds, no respiratory distress, no accessory muscle use Gastrointestinal: normal bowel sounds, soft, distended; No rebound; other (suprapubic tenderness ) Rectal: deferred Back: normal inspection, no CVA tenderness Extremities: normal range of motion, non-tender, pedal edema (3+), swelling (generalized ) Neurologic/Psychiatric: no motor/sensory deficits, alert, normal mood/affect, oriented x 3 Skin: normal color, warm/dry Progress/Results/Core Measures Suspected Sepsis SIRS Temperature: Pulse: Respiratory Rate: Laboratory Tests 10/11/20 14:06: White Blood Count 7.6 Blood Pressure / Mean: Laboratory Tests 10/11/20 14:06: Creatinine 1.54H, Platelet Count 251, Total Bilirubin 0.6 Results/Orders Lab Results Laboratory Tests Test 10/11/20 13:35 10/11/20 14:06 Range/Units Urine Color YELLOW Urine Clarity CLEAR Urine pH 6.5 5-9 Urine Specific [place] 1.010 L 1.016-1.022 Urine Protein NEGATIVE NEGATIVE Urine Glucose (UA) NEGATIVE NEGATIVE Urine Ketones NEGATIVE NEGATIVE Urine Nitrite NEGATIVE NEGATIVE Urine Bilirubin NEGATIVE NEGATIVE Urine Urobilinogen 0.2 < = 1.0 MG/DL Urine Leukocyte Esterase NEGATIVE NEGATIVE Urine RBC (Auto) NEGATIVE NEGATIVE Urine RBC RARE /HPF Urine WBC NONE /HPF Urine Squamous Epithelial Cells RARE /HPF Urine Crystals NONE /LPF Urine Bacteria NEGATIVE /HPF Urine Casts NONE /LPF Urine Mucus NEGATIVE /LPF Urine Culture Indicated NO White Blood Count 7.6 4.3-11.0 10^3/uL Red Blood Count 5.08 4.30-5.52 10^6/uL Hemoglobin 16.0 13.3-17.7 g/dL Hematocrit 48 40-54 % Mean Corpuscular Volume 94 80-99 fL Mean Corpuscular Hemoglobin 32 25-34 pg Mean Corpuscular Hemoglobin Concent 34 32-36 g/dL Red Cell Distribution Width 13.2 10.0-14.5 % Platelet Count 251 130-400 10^3/uL Mean Platelet Volume 9.6 9.0-12.2 fL Immature Granulocyte % (Auto) 0 % Neutrophils (%) (Auto) 60 42-75 % Lymphocytes (%) (Auto) 30 12-44 % Monocytes (%) (Auto) 8 0-12 % Eosinophils (%) (Auto) 1 0-10 % Basophils (%) (Auto) 1 0-10 % Neutrophils # (Auto) 4.6 1.8-7.8 10^3/uL Lymphocytes # (Auto) 2.3 1.0-4.0 10^3/uL Monocytes # (Auto) 0.6 0.0-1.0 10^3/uL Eosinophils # (Auto) 0.1 0.0-0.3 10^3/uL Basophils # (Auto) 0.0 0.0-0.1 10^3/uL Immature Granulocyte # (Auto) 0.0 0.0-0.1 10^3/uL Sodium Level 139 135-145 MMOL/L Potassium Level 3.9 3.6-5.0 MMOL/L Chloride Level 101 98-107 MMOL/L Carbon Dioxide Level 24 21-32 MMOL/L Anion Gap 14 5-14 MMOL/L Blood Urea Nitrogen 16 7-18 MG/DL Creatinine 1.54 H 0.60-1.30 MG/DL Estimat Glomerular Filtration Rate 43 BUN/Creatinine Ratio 10 Glucose Level 131 H 70-105 MG/DL Calcium Level 9.1 8.5-10.1 MG/DL Corrected Calcium 9.1 8.5-10.1 MG/DL Total Bilirubin 0.6 0.1-1.0 MG/DL Aspartate Amino Transf (AST/SGOT) 17 5-34 U/L Alanine Aminotransferase (ALT/SGPT) 24 0-55 U/L Alkaline Phosphatase 76 40-136 U/L Total Protein 7.4 6.4-8.2 GM/DL Albumin 4.0 3.2-4.5 GM/DL My Orders Orders - ANTONIO NGO APRN Cbc With Automated Diff (10/11/20 14:01) Comprehensive Metabolic Panel (10/11/20 14:01) Urinalysis (10/11/20 14:01) Ct Abdomen/Pelvis Wo (10/11/20 14:01) Furosemide Injection (Lasix Injection) (10/11/20 15:30) Medications Given in ED Current Medications Medications Dose Ordered Sig/Chung Route Start Time Stop Time Status Last Admin Dose Admin Furosemide 40 mg ONCE ONCE IM 10/11/20 15:30 10/11/20 15:31 DC 10/11/20 15:27 40 MG Vital Signs/I&O 10/11/20 10/11/20 13:10 15:31 Temp 37.1 37.1 Pulse 98 97 Resp 16 16 B/P (MAP) 227/123 (157) 187/97 (157) Pulse Ox 93 96 O2 Delivery Room Air Capillary Refill : Progress Note : Progress Note Patient examined and in no acute distress. Upon arrival he is demanding to have catheter placed so he can have relief. Nursing staff perform bladder scan and noted to have nothing in his bladder. Placed Taylor catheter due to history of urinary retention, only had 50ml output. After insertion of catheter he states he feels much improved. Ordered basic labs and UA. He had very distended abdomen and suprapubic pain. Orders placed for CT abdomen pelvis without. Will give 40 Lasix IM for his edema. States that he does not want to drink fluids or take his medicine at home when he is unable to urinate. Labs reviewed and are unremarkable. Creatinine noted at 1.54, baseline 1.56. CT abdomen pelvis negative for acute findings. Discussed removing Taylor catheter and having him attempt to urinate on his own. Patient became very anxious stating he did not want the catheter removed and he would like it kept in place until he follows up with Dr. Jorge so he does not have to return to the emergency department for the same complaint. Call Dr. Jorge's office and scheduled follow up appointment for next week. Discussed with him following up with his primary care provider to further evaluate need for increase Lasix. Will increase Lasix to 40mg daily for 4 days and add [id number] meq daily to see if this helps with his swelling. Reviewed discharge plan of care and he is agreeable with plan. Diagnostic Imaging Diagonstic Imaging: CT Plain Films/CT/US/NM/MRI: abdomen, pelvis Comments [facility], [place] NAME: MARLEN ANDERSON [facility] REC#: [id number] PT STATUS: REG ER : 1940 PHYSICIAN: ANTONIO NGO EDUCATIONAL FUNDRAISING DIRECTOR ADMIT DATE: 10/11/20/ER Draft Date of Exam:10/11/20 CT ABDOMEN/PELVIS WO PROCEDURE: CT abdomen and pelvis without contrast. TECHNIQUE: Multiple contiguous axial images were obtained through the abdomen and pelvis without the use of intravenous contrast. Auto Exposure Controls were utilized during the CT exam to meet ALARA standards for radiation dose reduction. INDICATION: Difficulty urinating. Lower abdominal pain. COMPARISON: 03/14/2020. FINDINGS: Included portions of the lung bases show multiple micronodules within the included portions of the right middle and right lower lobes. Largest of these is seen within the subpleural posterior margins of the right lower lobe and measures approximately 3 mm (image 4 series 2). This is stable compared to 03/14/2020. CT ABDOMEN: Normal appendix is identified. Small bowel loops are nondistended. The kidneys, adrenal glands, spleen, pancreas, and liver have an unremarkable noncontrast CT appearance. There is no loculated fluid collection, free fluid, nor free air within the abdomen. No abnormal mesenteric or retroperitoneal adenopathy is seen. Osseous structures show no acute abnormalities. Note is made of [id number] scattered calcified aortic and arterial atherosclerosis. CT PELVIS: Taylor catheter is present within the urinary bladder. Urinary bladder is decompressed and unopacified. No calculi are seen within the urinary bladder. Patient is status post previous prostatectomy. Bilateral fat-containing inguinal hernias are noted. There is no loculated fluid collection, free fluid, or free air within the pelvis. No abnormal adenopathy is identified. Osseous structures show no acute abnormalities. IMPRESSION: 1. No acute abnormalities are seen within the abdomen or pelvis. 2. Multiple small micronodules within the included portions of the right middle and right lower lobes. If patient is in a high-risk category, one-year follow-up could be performed to ensure stability. 3. Taylor catheter is in place and appears appropriately positioned. Urinary bladder is decompressed. 4. Other nonemergent findings as described above. Dictated on workstation # [id number] Dict: 10/11/20 1439 Trans: 10/11/20 1452 [id number] Interpreted by: MELINA MONSALVE MD Electronically signed by: Reviewed: Reviewed by Me Departure Impression Primary Impression: Acute urinary retention Additional Impression: Peripheral edema Disposition: 01 HOME, SELF-CARE Condition: Improved Departure-Patient Inst. Decision time for Depature: 15:20 Referrals: JAQUELIN COLEMAN MD (PCP/Family) Primary Care Physician Patient Instructions: Urinary Retention, How to Care for Your Taylor Catheter, Male Add. Discharge Instructions: Plan: 1. Follow up with Dr. Jorge on SaturdayOctober 19 at 3:00pm. 2. Empty your catheter bag when full. Use clean hands. Do not touch area of insertion without washing your hands. 3. Take Lasix 40mg by mouth daily for 4 days to see if this will help with your sswelling. Follow up with your primary care provider within a week. 4. Take Potassium daily as directed. 6. Return to ER for any new, concerning, or worsening symptoms. All discharge instructions reviewed with patient and/or family. Voiced understanding. Scripts Furosemide (Lasix) 40 Mg Tablet 40 MG PO DAILY for 4 Days, #4 TAB 0 Refills Prov: ANTONIO NGO EDUCATIONAL FUNDRAISING DIRECTOR 10/11/20 Potassium Chloride (Potassium Chloride) 10 Meq Tab.er.prt 10 MEQ PO DAILY for 4 Days, #4 TAB 0 Refills Prov: ANTONIO NGO EDUCATIONAL FUNDRAISING DIRECTOR 10/11/20 ANTONIO NGO EDUCATIONAL FUNDRAISING DIRECTOR Oct 11, 2020 13:23
[2020-10-11 14:14] LABS: BASOPHILS % (AUTO) 1 % (0-10); EOSINOPHILS # (AUTO) 0.1 10^3/uL (0.0-0.3); EOSINOPHILS % (AUTO) 1 % (0-10); HEMATOCRIT 48 % (40-54); LYMPHOCYTES # (AUTO) 2.3 10^3/uL (1.0-4.0); LYMPHOCYTES % (AUTO) 30 % (12-44); MEAN CORPUSCULAR HEMOGLOBIN 32 pg (25-34); MEAN CORPUSCULAR HGB CONC 34 g/dL (32-36); MEAN CORPUSCULAR VOLUME 94 fL (80-99); MEAN PLATELET VOLUME 9.6 fL (9.0-12.2); MONOCYTES # (AUTO) 0.6 10^3/uL (0.0-1.0); MONOCYTES % (AUTO) 8 % (0-12); NEUTROPHILS # (AUTO) 4.6 10^3/uL (1.8-7.8); NEUTROPHILS % (AUTO) 60 % (42-75); PLATELET COUNT 251 10^3/uL (130-400); WHITE BLOOD COUNT 7.6 10^3/uL (4.3-11.0)
[2020-10-11 14:17] LABS: BILIRUBIN,URINE NEGATIVE (NEGATIVE); CLARITY,URINE CLEAR; COLOR,URINE YELLOW; GLUCOSE, URINE (UA) NEGATIVE (NEGATIVE); KETONES,URINE NEGATIVE (NEGATIVE); LEUKOCYTE ESTERASE ,URINE NEGATIVE (NEGATIVE); NITRITE,URINE NEGATIVE (NEGATIVE); PH,URINE 6.5 (5-9); PROTEIN,URINE NEGATIVE (NEGATIVE)
[2020-10-11 14:24] LABS: POTASSIUM 3.9 MMOL/L (3.6-5.0)
[2020-10-11 14:25] LABS: CALCIUM 9.1 MG/DL (8.5-10.1)
[2020-10-11 14:26] LABS: TOTAL PROTEIN 7.4 GM/DL (6.4-8.2)
[2020-10-11 14:27] LABS: BACTERIA,URINE NEGATIVE /HPF; RBC,URINE RARE /HPF; SQUAMOUS EPITHELIAL CELL,UR RARE /HPF
[2020-10-11 14:28] LABS: BILIRUBIN,TOTAL 0.6 MG/DL (0.1-1.0)
[2020-10-11 14:30] LABS: CREATININE SERUM 1.54 MG/DL (0.60-1.30)
--- NOTE | 2020-10-11 14:52 | Diagnostic Imaging Report ---
PROCEDURE: CT abdomen and pelvis without contrast. TECHNIQUE: Multiple contiguous axial images were obtained through the abdomen and pelvis without the use of intravenous contrast. Auto Exposure Controls were utilized during the CT exam to meet ALARA standards for radiation dose reduction. INDICATION: Difficulty urinating. Lower abdominal pain. COMPARISON: 03/14/2020. FINDINGS: Included portions of the lung bases show multiple micronodules within the included portions of the right middle and right lower lobes. Largest of these is seen within the subpleural posterior margins of the right lower lobe and measures approximately 3 mm (image 4 series 2). This is stable compared to 03/14/2020. CT ABDOMEN: Normal appendix is identified. Small bowel loops are nondistended. The kidneys, adrenal glands, spleen, pancreas, and liver have an unremarkable noncontrast CT appearance. There is no loculated fluid collection, free fluid, nor free air within the abdomen. No abnormal mesenteric or retroperitoneal adenopathy is seen. Osseous structures show no acute abnormalities. Note is made of [id number] scattered calcified aortic and arterial atherosclerosis. CT PELVIS: Taylor catheter is present within the urinary bladder. Urinary bladder is decompressed and unopacified. No calculi are seen within the urinary bladder. Patient is status post previous prostatectomy. Bilateral fat-containing inguinal hernias are noted. There is no loculated fluid collection, free fluid, or free air within the pelvis. No abnormal adenopathy is identified. Osseous structures show no acute abnormalities. IMPRESSION: 1. No acute abnormalities are seen within the abdomen or pelvis. 2. Multiple small micronodules within the included portions of the right middle and right lower lobes. If patient is in a high-risk category, one-year follow-up could be performed to ensure stability. 3. Taylor catheter is in place and appears appropriately positioned. Urinary bladder is decompressed. 4. Other nonemergent findings as described above. Dictated by: Dictated on workstation # [id number]
[2020-10-11] MEDS ORDERED: FURO-124 PO (15:25)
[2020-10-11] MEDS ORDERED: POTA10TA36 PO (15:25)
[2020-10-11] MEDS ORDERED: FUROSEMIDE 40 MG/4 ML INJ (LASIX) IM ONE (15:30)
[2020-10-11 15:31] VITALS: BP 187/97
== END 2020-10-11 15:31 | disposition home or self-care (01) ==
LOC: EDUNIT# 13:06 → ER 13:08
DX: R33.9 Retention of urine, unspecified (principal); R60.0 Localized edema; I10 Essential (primary) hypertension; Z85.46 Personal history of malignant neoplasm of prostate
CPT/HCPCS: 36415; 51701; 74176; 80053; 81000; 85025

== ENCOUNTER 2021-09-03 07:30 | Inpatient (IN) | payer MEDICARE ==
[~2021-09-03] VITALS: Ht 175.3 cm; Wt 141.6 kg
[~2021-09-03 07:30] MED LIST changes: +FURO-124 PO; +POTA10TA37 PO
[2021-09-03] MEDS ORDERED: NS IV 1000 ML 1,000 ML IV SCH (07:45)
[2021-09-03 07:55] LABS: BASOPHILS % (AUTO) 0 % (0-10); EOSINOPHILS % (AUTO) 0 % (0-10); HEMATOCRIT 39 % (40-54); HEMOGLOBIN 12.4 g/dL (13.3-17.7); LYMPHOCYTES # (AUTO) 0.9 10^3/uL (1.0-4.0); LYMPHOCYTES % (AUTO) 6 % (12-44); MEAN CORPUSCULAR HEMOGLOBIN 28 pg (25-34); MEAN CORPUSCULAR HGB CONC 32 g/dL (32-36); MEAN CORPUSCULAR VOLUME 88 fL (80-99); MEAN PLATELET VOLUME 8.6 fL (9.0-12.2); MONOCYTES % (AUTO) 7 % (0-12); NEUTROPHILS # (AUTO) 13.2 10^3/uL (1.8-7.8); NEUTROPHILS % (AUTO) 87 % (42-75); PLATELET COUNT 472 10^3/uL (130-400); WHITE BLOOD COUNT 15.1 10^3/uL (4.3-11.0)
[2021-09-03 08:10] LABS: BILIRUBIN,URINE NEGATIVE (NEGATIVE); CLARITY,URINE CLEAR; COLOR,URINE YELLOW; GLUCOSE, URINE (UA) NEGATIVE (NEGATIVE); KETONES,URINE NEGATIVE (NEGATIVE); LEUKOCYTE ESTERASE ,URINE NEGATIVE (NEGATIVE); NITRITE,URINE NEGATIVE (NEGATIVE); PROTEIN,URINE NEGATIVE (NEGATIVE)
[2021-09-03 08:15] LABS: ALBUMIN 3.3 GM/DL (3.2-4.5); CHLORIDE 96 MMOL/L (98-107); INR 1.2 (0.8-1.4); POTASSIUM 5.2 MMOL/L (3.6-5.0); PROTHROMBIN TIME PATIENT 15.8 SEC (12.2-14.7); SODIUM 132 MMOL/L (135-145)
[2021-09-03] MEDS ORDERED: IBUPROFEN 800 MG (MOTRIN) TAB PO ONE (08:15)
[2021-09-03] MEDS ORDERED: ACETAMINOPHEN 500 MG TAB (TYLENOL) PO ONE (08:15)
[2021-09-03 08:16] LABS: AMYLASE 22 U/L (25-125); CALCIUM 8.6 MG/DL (8.5-10.1)
[2021-09-03 08:17] LABS: GLUCOSE 133 MG/DL (70-105); TOTAL PROTEIN 6.9 GM/DL (6.4-8.2)
--- NOTE | 2021-09-03 08:17 | ED General ---
General Chief Complaint: General Problems/Pain Stated Complaint: WEAKNESS Source of Information: Patient (PT IS EXTREMELY POOR HISTORIAN, BUT ABLE TO ANSWER SIMPLE YES/NO QUESTIONS, UNABLE TO ELABORATE ON ANY QUESTIONS, AND UNABLE TO PROVIDE ANY PAST MEDICAL HISTORY), Old Records (ALL PMH IS FROM OLD RECORDS) History of Present Illness Date Seen by Provider: September 03, 2021 Time Seen by Provider: 07:33 Initial Comments PT ARRIVES VIA [facility] FROM HOME PT LIVES IN A TRAVEL TRAILER WITH HIS C/O GENERALIZED WEAKNESS PT IS UNABLE TO STATE WHEN HIS CHRONIC GENERALIZED WEAKNESS WORSENED PT IS UNABLE TO STATE ANY OTHER SYMPTOMS ON DIRECT YES/NO QUESTIONING, PT DENIES CHEST PAIN DENIES PAIN ANYWHERE DENIES NAUSEA/VOMITING/DIARRHEA--STATES HE HAS BEEN EATING NORMALLY DENIES COUGH DENIES INCREASE IN SHORTNESS OF BREATH PT UNAWARE OF FEVER, TEMP IS 38.1 WHEN ASKED HOW LONG IT HAS BEEN WHEN HE LAST SAW A , HE STATES "A LONG TIME"--IS UNABLE TO BE ANY MORE SPECIFIC PT IS UNABLE TO STATE WHAT MEDICAL PROBLEMS HE HAS OR WHAT MEDICATIONS HE TAKES PCP: DR. COLEMAN, [facility] Allergies and Home Medications Allergies Coded Allergies: No Known Drug Allergies (Unverified , 03/07/20) Patient Home Medication List Home Medication List Reviewed: Yes Amlodipine Besylate (Amlodipine Besylate) 5 Mg Tablet, 10 MG PO DAILY Prescribed by: MARLO HIGGINS on 03/08/20 1029 Bethanechol Chloride (Urecholine) 10 Mg Tablet, 25 MG PO ACHS Prescribed by: DELMI ARANDA on 03/25/20 0617 Cefuroxime Axetil (Cefuroxime) 250 Mg Tablet, 250 MG PO BID Prescribed by: JEFRY AZAR on 03/14/20 1633 Clonidine HCl (Clonidine HCl) 0.1 Mg Tablet, 0.1 MG PO BID Prescribed by: MARLO HIGGINS on 03/08/20 1029 Furosemide (Lasix) 20 Mg Tablet, 20 MG PO DAILY Prescribed by: MARLO HIGGINS on 03/08/20 1029 Furosemide (Lasix) 40 Mg Tablet, 40 MG PO DAILY Prescribed by: ANTONIO NGO on 10/11/20 1525 Metoprolol Succinate (Metoprolol Succinate) 25 Mg Tab.er.24h, 25 MG PO DAILY Prescribed by: MARLO HIGGINS on 03/08/20 1029 Phenazopyridine HCl (Pyridium) 100 Mg Tablet, 100 MG PO BID Prescribed by: JEFRY AZAR on 03/14/20 1633 Potassium Chloride (Potassium Chloride) 10 Meq Tab.er.prt, 10 MEQ PO DAILY Prescribed by: ANTONIO NGO on 10/11/20 1525 [urecholine] , 50 MG PO ACHS Prescribed by: TARA CHAU on 04/01/20 0922 Review of Systems Review of Systems Constitutional: see HPI EENTM: no symptoms reported Respiratory: see HPI Cardiovascular: No chest pain; edema (MASSIVE LEG EDEMA--IS CHRONIC ) Gastrointestinal: no symptoms reported; No abdominal pain, No nausea, No vomiting Genitourinary: no symptoms reported; No dysuria Musculoskeletal: other (LEG EDEMAN) Skin: no symptoms reported Psychiatric/Neurological: See HPI, Other (GENERALIZED WEAKNESS, NO FOCAL DEFICITS) Hematologic/Lymphatic: No Symptoms Reported Immunological/Allergic: no symptoms reported Past Qmtknxx-Vmolqs-Faovwr Hx Patient Social History Tobacco Use?: No Substance use?: No Alcohol Use?: Yes Alcohol type: Hard Liquor, Wine Alcohol Frequency: Daily Immunizations Up To Date Tetanus Booster (TDap): Unknown Seasonal Allergies Seasonal Allergies: No Past Medical History Surgeries: Yes (PROSTATE) Gallbladder, Prostatectomy Respiratory: No Cardiac: Yes Chronic Edema/Swelling, Hypertension Neurological: Yes (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) Genitourinary: Yes (PROSTATE CANCER, PROSTATECTOMY; URINARY RETENTION;RENAL INSUFFICIENCY) Prostate Problems Gastrointestinal: Yes (S/P CHOLECTYSTECTOMY) Gall Bladder Disease Musculoskeletal: No Endocrine: No HEENT: No Cancer: Yes Prostate Did You Recieve Any Treatments: Yes What Type of Treatment Did You: Radiation, Surgical Intervention Psychosocial: No Integumentary: No Blood Disorders: No Physical Exam Vital Signs Vital Signs - First Documented 09/03/21 07:30 Temp 38.1 Pulse 101 Resp 16 B/P (MAP) 135/91 (106) Pulse Ox 93 O2 Delivery Room Air Capillary Refill : Height, Weight, BMI Height: '" Weight: lbs. oz. kg; 37.00 BMI Method: General Appearance: Chronically ill, Obese, Other (MILD DYSPNEA AT REST; VERY MALODOROUS AND UNKEMPT. HAS BEEN INCONTINENT OF URINE AND SOFT FORMED BROWN STOOL. LETHARGIC. ) Neck: Normal Inspection Respiratory: Normal Breath Sounds; No Rales, No Rhonci, No Wheezing; Other (MILDLY DYSPNEIC AND ORTHOPNEIC) Cardiovascular: No Murmur, Tachycardia (110'S) Gastrointestinal: Non Tender, Soft Genital/Rectal: Other (ERYTHEMA AND MACERATION TO SCROTUM, PERINEUM, INNER THIGHS, WELL BUTTOCKS AND PERIRECTAL AREAS--DECUBUTUS ULCERS PRESENT WITH SOME AREAS BLEEDING. ) Back: No CVA Tenderness, No Vertebral Tenderness Extremity: Other (PT WITH MASSIVE EDEMA TO BOTH LOWER LEGS--FROM THIGH DOWN TO TOES, WITH "ELEPHANTIASIS" TO BILATERAL LOWER LEGS--FROM JUST BELOW KNEES, DOWN TO TOES. EXTENSIVE SCALING AND MACERATION, AND DIFFUSE SEROUS WEEPING. MARKED ERYTHEMA AND WARMTH TO BILATERAL LOWER LEGS. PT WITH MASSIVE, VERY FIRM EDEMA TO UPPER ABDOMEN AND UP TO MID BACK. ) Neurologic/Psychiatric: Alert, Oriented x3 (BUT POOR MEMORY), No Motor/Sensory Deficits, visual manager II-XII Norm as Tested, Other (GENERALIZED WEAKNESS, BUT NO FOCAL DEFICITS. ) Skin: Normal Color, Warm/Dry, Other ( ABOVE. ) Focused Exam Sepsis Stage: Sepsis Possible Source: Skin/Soft Tissue Lactate Level 09/03/21 07:40: Lactic Acid Level 2.16*H Time of Focused Exam: 09:30 Respiratory: Normal Breath Sounds, No Accessory Muscle Use, No Respiratory Distress Cardiovascular: No JVD, Tachycardia Capillary Refill: Less Than 3 Seconds Skin: normal color, warm/dry Lactic Acid Level Laboratory Tests Test 09/03/21 07:40 Lactic Acid Level 2.16 MMOL/L (0.50-2.00) *H Within 3hrs of presentation: Admin fluids, Admin ABX, Blood cultures prior to ABX's, Focus exam, Lactate level Progress/Results/Core Measures Suspected Sepsis SIRS Temperature: Pulse: Respiratory Rate: Laboratory Tests 09/03/21 07:40: White Blood Count 15.1H Blood Pressure / Mean: 09/03/21 07:40: Lactic Acid Level 2.16*H Laboratory Tests 09/03/21 07:40: Creatinine 1.66H, INR Comment 1.2, Platelet Count 472H, Total Bilirubin 1.0 Results/Orders Lab Results Laboratory Tests Test 09/03/21 07:40 09/03/21 08:00 09/03/21 08:10 Range/Units White Blood Count 15.1 H 4.3-11.0 10^3/uL Red Blood Count 4.36 4.30-5.52 10^6/uL Hemoglobin 12.4 L 13.3-17.7 g/dL Hematocrit 39 L 40-54 % Mean Corpuscular Volume 88 80-99 fL Mean Corpuscular Hemoglobin 28 25-34 pg Mean Corpuscular Hemoglobin Concent 32 32-36 g/dL Red Cell Distribution Width 14.8 H 10.0-14.5 % Platelet Count 472 H 130-400 10^3/uL Mean Platelet Volume 8.6 L 9.0-12.2 fL Immature Granulocyte % (Auto) 1 % Neutrophils (%) (Auto) 87 H 42-75 % Lymphocytes (%) (Auto) 6 L 12-44 % Monocytes (%) (Auto) 7 0-12 % Eosinophils (%) (Auto) 0 0-10 % Basophils (%) (Auto) 0 0-10 % Neutrophils # (Auto) 13.2 H 1.8-7.8 10^3/uL Lymphocytes # (Auto) 0.9 L 1.0-4.0 10^3/uL Monocytes # (Auto) 1.0 0.0-1.0 10^3/uL Eosinophils # (Auto) 0.0 0.0-0.3 10^3/uL Basophils # (Auto) 0.0 0.0-0.1 10^3/uL Immature Granulocyte # (Auto) 0.1 0.0-0.1 10^3/uL Neutrophils % (Manual) 90 % Lymphocytes % (Manual) 6 % Monocytes % (Manual) 4 % Eosinophils % (Manual) 0 % Basophils % (Manual) 0 % Band Neutrophils 0 % Blood Morphology Comment NORMAL Erythrocyte Sedimentation Rate 14 0-30 MM/HR Prothrombin Time 15.8 H 12.2-14.7 SEC INR Comment 1.2 0.8-1.4 Activated Partial Thromboplast Time 36 H 24-35 SEC Sodium Level 132 L 135-145 MMOL/L Potassium Level 5.2 H 3.6-5.0 MMOL/L Chloride Level 96 L 98-107 MMOL/L Carbon Dioxide Level 20 L 21-32 MMOL/L Anion Gap 16 H 5-14 MMOL/L Blood Urea Nitrogen 26 H 7-18 MG/DL Creatinine 1.66 H 0.60-1.30 MG/DL Estimat Glomerular Filtration Rate 41 BUN/Creatinine Ratio 16 Glucose Level 133 H 70-105 MG/DL Lactic Acid Level 2.16 *H 0.50-2.00 MMOL/L Calcium Level 8.6 8.5-10.1 MG/DL Corrected Calcium 9.2 8.5-10.1 MG/DL Magnesium Level 2.2 1.6-2.4 MG/DL Total Bilirubin 1.0 0.1-1.0 MG/DL Aspartate Amino Transf (AST/SGOT) 38 H 5-34 U/L Alanine Aminotransferase (ALT/SGPT) 26 0-55 U/L Alkaline Phosphatase 64 40-136 U/L Total Creatine Kinase 829 H 30-200 U/L Creatine Kinase MB 3.3 <6.6 NG/ML Myoglobin 779.6 H 10.0-92.0 NG/ML Troponin I < 0.028 <0.028 NG/ML C-Reactive Protein High Sensitivity 27.91 H 0.00-0.50 MG/DL B-Type Natriuretic Peptide 56.6 <100.0 PG/ML Total Protein 6.9 6.4-8.2 GM/DL Albumin 3.3 3.2-4.5 GM/DL Amylase Level 22 L 25-125 U/L Lipase < 4 L 8-78 U/L Procalcitonin 0.26 H <0.10 NG/ML TSH [place] Testing 3.04 0.35-4.94 UIU/ML Serum Alcohol < 10 <10 MG/DL Urine Color YELLOW Urine Clarity CLEAR Urine pH 5.0 5-9 Urine Specific Camilla 1.025 H 1.016-1.022 Urine Protein NEGATIVE NEGATIVE Urine Glucose (UA) NEGATIVE NEGATIVE Urine Ketones NEGATIVE NEGATIVE Urine Nitrite NEGATIVE NEGATIVE Urine Bilirubin NEGATIVE NEGATIVE Urine Urobilinogen 0.2 < = 1.0 MG/DL Urine Leukocyte Esterase NEGATIVE NEGATIVE Urine RBC (Auto) 2+ H NEGATIVE Urine RBC 0-2 /HPF Urine WBC NONE /HPF Urine Squamous Epithelial Cells NONE /HPF Urine Crystals NONE /LPF Urine Bacteria NEGATIVE /HPF Urine Casts NONE /LPF Urine Mucus NEGATIVE /LPF Urine Culture Indicated NO Influenza Type A (RT-PCR) Not Detected Not Detecte Influenza Type B (RT-PCR) Not Detected Not Detecte SARS-CoV-2 RNA (RT-PCR) Not Detected Not Detecte My Orders Orders - ROSIDELMI Franco DO Ed Iv/Invasive Line Start (09/03/21 07:33) Ekg Tracing (09/03/21 07:33) O2 (09/03/21 07:33) Monitor-Rhythm Ecg Trace Only (09/03/21 07:33) Cbc With Automated Diff (09/03/21 07:33) Comprehensive Metabolic Panel (09/03/21 07:33) Magnesium (09/03/21 07:33) Thyroid Analyzer (09/03/21 07:33) Troponin I [place] (09/03/21 07:33) Catheter(Urinary) Insert & Ass 03,15 (09/03/21 07:40) Chest 1 View, Ap/Pa Only (09/03/21 07:40) Ct Head Wo-R/O Stroke (09/03/21 07:40) Alcohol (09/03/21 07:40) Amylase (09/03/21 07:40) Bnp Emmy (09/03/21 07:40) Creatine Kinase (09/03/21 07:40) Creatine Kinase Mb (09/03/21 07:40) Hs C Reactive Protein (09/03/21 07:40) Lactic Acid Analyzer (09/03/21 07:40) Lipase (09/03/21 07:40) Procalcitonin (Pct) (09/03/21 07:40) Protime With Inr (09/03/21 07:40) Partial Thromboplastin Time (09/03/21 07:40) Blood Culture (09/03/21 07:40) Erythrocyte Sedimentation Rate (09/03/21 07:40) Myoglobin Serum (09/03/21 07:40) Ed Iv/Invasive Line Start (09/03/21 07:40) Ns Iv 1000 Ml (Sodium Chloride 0.9%) (09/03/21 07:45) Covid 19 Inhouse Test (09/03/21 07:40) Urinalysis (09/03/21 07:40) Urine Culture (09/03/21 07:40) Vital Signs Adult Sepsis Patie Q15M (09/03/21 07:40) O2 (09/03/21 07:40) Remove Rings In Anticipation O (09/03/21 07:40) Influenza A And B By Pcr (09/03/21 07:40) Isolation Central Supply Req (09/03/21 07:40) Acetaminophen Tablet (Tylenol Tablet) (09/03/21 08:15) Ibuprofen Tablet (Motrin Tablet) (09/03/21 08:15) Manual Differential (09/03/21 07:40) Ct Chest/Abdomen/Pelvis Wo (09/03/21 08:25) Iohexol Injection (Omnipaque 350 Mg/Ml 1 (09/03/21 08:45) Received Contrast (Hold Metformin- Contr (09/03/21 08:45) Ns (Ivpb) (Sodium Chloride 0.9% Ivpb Bag (09/03/21 08:45) Piperacillin Sodium/Tazobactam (Zosyn Vi (09/03/21 09:45) Vancomycin Injection (Vancomycin Injecti (09/03/21 09:45) Ed Admission (Communication) (09/03/21 09:48) Medications Given in ED Current Medications Medications Dose Ordered Sig/Chung Route Start Time Stop Time Status Last Admin Dose Admin Acetaminophen 1,000 mg ONCE ONCE PO 09/03/21 08:15 09/03/21 08:16 DC 09/03/21 08:21 1,000 MG Ibuprofen 800 mg ONCE ONCE PO 09/03/21 08:15 09/03/21 08:16 DC 09/03/21 08:21 800 MG Vital Signs/I&O 09/03/21 07:30 Temp 38.1 Pulse 101 Resp 16 B/P (MAP) 135/91 (106) Pulse Ox 93 O2 Delivery Room Air Capillary Refill : Progress Note : Progress Note SEPSIS PROTOCOL INITIATED GIVEN IV FLUIDS, TYLENOL AND MOTRIN TEMP AND HR DOWN AT TIME OF ADMIT PT HAD NO COMPLAINTS DURING ER STAY NO DETERIORATION IN PT'S CONDITION DURING ER STAY ECG Initial ECG Impression Date: September 03, 2021 Initial ECG Impression Time: 07:49 Initial ECG Rate: 102 Initial ECG Rhythm: S.Tach Diagnostic Imaging Comments ALL PER RADIOLOGIST REPORTS AT 0935 CXR-- Discussion: Single portable upright view of the chest was obtained. Low lung volumes. Normal heart size. Elevated right hemidiaphragm. Antecedent granulomatous disease is noted, benign. No consolidation, pleural fluid, or pneumothorax. No osseous abnormality. Impression: 1. Negative chest. CT HEAD--Comparison is made with a previous study from March 14, 2020. FINDINGS: There is age related global volume loss present. There are no findings of acute intracranial hemorrhage. There is no extra-axial collection. There are no findings of intracranial mass effect or shift. There is no evidence of territorial loss of verde-white differentiation or findings of vasogenic edema. There are small foci of low density demonstrated within the thalami bilaterally. On the right, this appears unchanged from the comparison examination. These appear new on the left. These are compatible with thalamic lacunar infarcts of indeterminate age. There is atherosclerotic disease within the vessels at the skull base. There is no identifiable hyperdense blood vessel present. The mastoids are clear. The paranasal sinuses appear clear. The orbital contents are unremarkable. IMPRESSION: 1. Small age-indeterminate lacunar infarcts within the left thalamus. Small lacunar infarct in the right thalamus is unchanged from 2020. 2. No large territorial infarct demonstrated. There are no findings of hemorrhage, mass effect or hydrocephalus. 3. Atherosclerosis without evidence of a hyperdense blood vessel. CT CHEST/ABDOMEN/PELVIS-- Comparison: CT of the abdomen and pelvis 10/11/2020. Discussion: CHEST: Antecedent granulomatous disease is noted, benign. Evaluation is limited due to respiratory motion. The thoracic aorta is normal in caliber and configuration. Pulmonary arteries are unremarkable. Normal heart size. No pleural or pericardial fluid. No acute osseous abnormality. No focal consolidation or air bronchograms. Abdomen/pelvis: The gallbladder surgically absent. The liver, pancreas, spleen, and adrenal glands are unremarkable. Moderate hiatal hernia is noted. Questionable 2 mm stone within the inferior left kidney. No hydronephrosis on either side. Questionable cyst within the right kidney. The aorta is normal in caliber. The bladder is decompressed by a Taylor catheter. Prostate is diminutive or surgically absent. The appendix is normal. The large and small bowel loops appear within normal limits. No acute osseous abnormality. Lower extremity edema is incompletely viewed. Impression: 1. Chronic changes as discussed. No acute abnormality within the chest, abdomen, or pelvis. Reviewed: Reviewed by Al Departure Communication (Admissions) [id number]--SPOKE WITH DR. HIGGINS, HOSPITALIST FOR [facility]. ACCEPTS PT FOR ADMIT. SHE WILL DO ADMIT ORDERS. WILL CONSULT DR. GALVAN [id number]--SPOKE WITH DR. GALVAN FOR SURGICAL CONSULT Impression Primary Impression: Sepsis Additional Impressions: Urinary incontinence Anasarca Bilateral lower leg cellulitis Acute renal insufficiency Generalized weakness Obesity Decubitus ulcers Venous stasis ulcers of both lower extremities Disposition: ADMITTED INPATIENT Condition: Stable Admissions Decision to Admit Reason: Admit from ER (General) Decision to Admit/Date: September 03, 2021 Time/Decision to Admit Time: 09:40 Departure-Patient Inst. Referrals: JAQUELIN COLEMAN MD (PCP/Family) Primary Care Physician DELMI ARANDA DO September 03, 2021 08:17
[2021-09-03 08:18] LABS: CARBON DIOXIDE 20 MMOL/L (21-32)
[2021-09-03 08:21] LABS: ALKALINE PHOSPHATASE 64 U/L (40-136); CREATININE SERUM 1.66 MG/DL (0.60-1.30); GFR ESTIMATED 41
[2021-09-03 08:22] LABS: BUN/CREATININE RATIO 16
[2021-09-03 08:24] LABS: ALANINE AMINOTRANSFERASE 26 U/L (0-55); MAGNESIUM 2.2 MG/DL (1.6-2.4)
[2021-09-03 08:25] LABS: CREATINE KINASE 829 U/L (30-200); LIPASE < 4 U/L (8-78)
[2021-09-03 08:30] LABS: BACTERIA,URINE NEGATIVE /HPF; RBC,URINE 0-2 /HPF
[2021-09-03 08:32] LABS: CREATINE KINASE MB 3.3 NG/ML (<6.6)
[2021-09-03 08:38] LABS: BAND NEUTROPHILS 0 %; BASOPHILS % (MANUAL) 0 %; EOSINOPHILS % (MANUAL) 0 %; ERYTHROCYTE SEDIMENTATION RATE 14 MM/HR (0-30); LYMPHOCYTES % (MANUAL) 6 %; MONOCYTES % (MANUAL) 4 %; NEUTROPHILS % (MANUAL) 90 %; RBC MORPH NORMAL
[2021-09-03 08:45] LABS: TSH (THYROID ANALYZER) 3.04 UIU/ML (0.35-4.94)
[2021-09-03] MEDS ORDERED: HOLD METFORMIN - RECEIVED CONTRAST 20 ML VIAL IV SCH (08:45)
[2021-09-03] MEDS ORDERED: IOHEXOL 350 MG/ML 100 ML (OMNIPAQUE 350) VIAL IV ONE (08:45)
[2021-09-03] MEDS ORDERED: NS 100 ML (IVPB) BAG IV ONE (08:45)
--- NOTE | 2021-09-03 09:28 | Diagnostic Imaging Report ---
PROCEDURE: CT chest, abdomen, and pelvis without contrast. TECHNIQUE: Multiple contiguous axial images were obtained through the chest, abdomen, and pelvis without the use of intravenous contrast. Auto Exposure Controls were utilized during the CT exam to meet ALARA standards for radiation dose reduction. Indication: Generalized weakness, fever of unknown origin. Comparison: CT of the abdomen and pelvis 10/11/2020. Discussion: CHEST: Antecedent granulomatous disease is noted, benign. Evaluation is limited due to respiratory motion. The thoracic aorta is normal in caliber and configuration. Pulmonary arteries are unremarkable. Normal heart size. No pleural or pericardial fluid. No acute osseous abnormality. No focal consolidation or air bronchograms. Abdomen/pelvis: The gallbladder surgically absent. The liver, pancreas, spleen, and adrenal glands are unremarkable. Moderate hiatal hernia is noted. Questionable 2 mm stone within the inferior left kidney. No hydronephrosis on either side. Questionable cyst within the right kidney. The aorta is normal in caliber. The bladder is decompressed by a Taylor catheter. Prostate is diminutive or surgically absent. The appendix is normal. The large and small bowel loops appear within normal limits. No acute osseous abnormality. Lower extremity edema is incompletely viewed. Impression: 1. Chronic changes as discussed. No acute abnormality within the chest, abdomen, or pelvis. Dictated by: Dictated on workstation # [id number]
--- NOTE | 2021-09-03 09:30 | Diagnostic Imaging Report ---
Indication: Dyspnea and weakness. Comparison: 03/07/2020. Discussion: Single portable upright view of the chest was obtained. Low lung volumes. Normal heart size. Elevated right hemidiaphragm. Antecedent granulomatous disease is noted, benign. No consolidation, pleural fluid, or pneumothorax. No osseous abnormality. Impression: 1. Negative chest. Dictated by: Dictated on workstation # [id number]
--- NOTE | 2021-09-03 09:33 | Diagnostic Imaging Report ---
PROCEDURE: CT head wo r/o stroke. TECHNIQUE: Multiple contiguous axial images were obtained through the brain without the use of intravenous contrast. Auto Exposure Controls were utilized during the CT exam to meet ALARA standards for radiation dose reduction. INDICATION: Generalized weakness. Evaluate for stroke. Comparison is made with a previous study from March 14, 2020. FINDINGS: There is age related global volume loss present. There are no findings of acute intracranial hemorrhage. There is no extra-axial collection. There are no findings of intracranial mass effect or shift. There is no evidence of territorial loss of verde-white differentiation or findings of vasogenic edema. There are small foci of low density demonstrated within the thalami bilaterally. On the right, this appears unchanged from the comparison examination. These appear new on the left. These are compatible with thalamic lacunar infarcts of indeterminate age. There is atherosclerotic disease within the vessels at the skull base. There is no identifiable hyperdense blood vessel present. The mastoids are clear. The paranasal sinuses appear clear. The orbital contents are unremarkable. IMPRESSION: 1. Small age-indeterminate lacunar infarcts within the left thalamus. Small lacunar infarct in the right thalamus is unchanged from 2020. 2. No large territorial infarct demonstrated. There are no findings of hemorrhage, mass effect or hydrocephalus. 3. Atherosclerosis without evidence of a hyperdense blood vessel. Dictated by: Dictated on workstation # [id number]
[2021-09-03] MEDS ORDERED: PIPERACILLIN SODIUM/TAZOBACTAM 4.5 GM in NS (IVPB) 100 ML IV ONE (09:45)
--- NOTE | 2021-09-03 09:47 | History & Physical-Hospitalist ---
History of Present Illness HPI/Chief Complaint Chief complaint: Bilateral lower extremity cellulitis History of present illness: This is an 81-year-old male of counts include 234 beds at the [facility] who resides in a camper with his who has a past medical history of chronic lower extremity lymphedema who presented to the ER with weakness and fever found to have bilateral lower extremity cellulitis on chronic lymphedema condition. Patient appears to have multiple wounds and wound care will be consulted. The son and his are at the bedside and are requesting DPOA papers to be signed and placement. Source: patient, family Exam Limitations: no limitations Date Seen 09/03/21 Time Seen by a Provider: 13:00 Attending Physician PCP Narciso Stoll MD Referring Physician Date of Admission Home Medications & Allergies Home Medications Reviewed patient Home Medication Reconciliation performed by pharmacy medication reconciliations farm equipment technician and/or nursing. Patients Allergies have been reviewed. Allergies Allergies Coded Allergies No Known Drug Allergies ([id number]/20) Past Auaxbgm-Fwmfwg-Mclqwq Hx Patient Social History Marrital Status: Employed/Student: retired Smoking Status: Unknown if Ever Smoked Seasonal Allergies Seasonal Allergies: No Current Status Primary Language: Portuguese Preferred Spoken Language: Portuguese Past Medical History Surgeries: Prostatectomy Chronic Edema/Swelling, Hypertension Prostate Problems Prostate Did You Recieve Any Treatments: Yes What Type of Treatment Did You: Radiation, Surgical Intervention Blood Disorders: No Review of Systems Constitutional: see HPI, malaise, weakness EENTM: no symptoms reported Respiratory: no symptoms reported Cardiovascular: no symptoms reported Gastrointestinal: no symptoms reported Genitourinary: no symptoms reported Musculoskeletal: no symptoms reported Skin: see HPI Psychiatric/Neurological: No Symptoms Reported All Other Systems Reviewed Negative Unless Noted: Yes Physical Exam Physical Exam Vital Signs Vital Signs - First Documented 09/03/21 07:30 Temp 38.1 Pulse 101 Resp 16 B/P (MAP) 135/91 (106) Pulse Ox 93 O2 Delivery Room Air Capillary Refill : Less Than 3 Seconds Height, Weight, BMI Height: '" Weight: lbs. oz. kg; 47.00 BMI Method: General Appearance: No Apparent Distress, WD/WN, Chronically ill Eyes: Right Eye Normal Inspection, Right Eye PERRL HEENT: PERRL/EOMI, Normal ENT Inspection, Pharynx Normal, Moist Mucous Membranes Neck: Full Range of Motion, Normal Inspection, Non Tender Respiratory: Chest Non Tender, Lungs Clear, Normal Breath Sounds, No Accessory Muscle Use, No Respiratory Distress Cardiovascular: Regular Rate, Rhythm, No Edema, No Gallop, No JVD, No Murmur, Normal Peripheral Pulses Gastrointestinal: Normal Bowel Sounds, No Organomegaly, No Pulsatile Mass, Non Tender, Soft Back: Normal Inspection, No CVA Tenderness, No Vertebral Tenderness Extremity: Normal Capillary Refill, Normal Inspection, Normal Range of Motion, Non Tender, No Calf Tenderness, No Pedal Edema Neurologic/Psychiatric: Alert, Oriented x3, No Motor/Sensory Deficits, Normal Mood/Affect Skin: Normal Color, Warm/Dry, Rash (Bilateral lower extremity ulcers and cellulitis severe in nature) Lymphatic: No Adenopathy Results Results/Procedures Labs Laboratory Tests 09/03/21 07:40 Patient resulted labs reviewed. Assessment/Plan Admission Diagnosis Assessment: Bilateral lower extremity cellulitis Chronic lymphedema History of prostate cancer Poor living conditions Plan: [facility] Supportive care IV antibiotic Needs placement Admission Status: Inpatient Order (span 2 midnights) Reason for Inpatient Admission: Severe cellulitis Diagnosis/Problems Diagnosis/Problems (1) Bilateral lower leg cellulitis Status: Acute (2) Generalized weakness Status: Acute (3) Decubitus ulcers Status: Acute (4) Acute renal insufficiency Status: Acute (5) Obesity Status: Acute (6) Venous stasis ulcers of both lower extremities Status: Acute (7) Urinary incontinence Status: Acute MARLO HIGGINS DO September 03, 2021 09:47
[2021-09-03] MEDS: VANCOMYCIN INJECTION 1,000 MG in NS (IVPB) 250 ML IV SCH ×3 (09:55→11:36)
[2021-09-03 11:00] VITALS: BP 135/63
[2021-09-03] MEDS ORDERED: VANCOMYCIN INJECTION 0.1 MG in NS (IVPB) 250 ML IV SCH (11:30)
[2021-09-03] MEDS ORDERED: morphine INJ 4 MG/ML 1 ML (VIAL/SYRINGE) IV PRN (11:30)
[2021-09-03] MEDS ORDERED: LACTULOSE SYRUP 10GM/15ML (ENULOSE) 30ML UDC PO PRN (11:30)
[2021-09-03] MEDS ORDERED: ALPRAZolam 0.25 MG (XANAX) TAB PO PRN (11:30)
[2021-09-03] MEDS ORDERED: polyethylene glycoL POWDER 17 GM (MIRALAX) PACK PO PRN (11:30)
[2021-09-03] MEDS ORDERED: MILK OF MAGNESIA 400 MG/5 ML 30 ML UDC PO PRN (11:30)
[2021-09-03] MEDS ORDERED: MELATONIN 3 MG TABLET PO PRN (11:30)
[2021-09-03] MEDS ORDERED: PATIENT MAY USE OWN MEDS, ALL PO SCH (11:30)
[2021-09-03] MEDS ORDERED: ONDANSETRON 4 MG/2 ML (SDV) Z0FRAN IV PRN (11:30)
[2021-09-03] MEDS ORDERED: diphenhydrAMINE 25 MG TAB (BENADRYL) PO PRN (11:30)
[2021-09-03] MEDS ORDERED: ANTACID SUSP 30 ML UDC (MYLANTA) PO PRN (11:30)
[2021-09-03] MEDS ORDERED: ONDANSETRON 4 MG (ZOFRAN) ORAL DISSOLVE TAB PO PRN (11:30)
[2021-09-03] MEDS ORDERED: diphenhydrAMINE 50 MG/ML INJ (BENADRYL) IVP PRN (11:30)
[2021-09-03] MEDS ORDERED: BISACODYL 10 MG SUPP (DULCOLAX) PR PRN (11:30)
[2021-09-03] MEDS ORDERED: CALCIUM CARBONATE 500 MG (TUMS) TAB.CHEW PO PRN (11:30)
[2021-09-03] MEDS ORDERED: ACETAMINOPHEN 325 MG TABLET PO PRN (11:30)
[2021-09-03] MEDS: ENOXAPARIN 40 MG/0.4 ML (LOVENOX) SYR SC SCH ×2 (12:55→23:28)
[2021-09-03] MEDS: PIPERACILLIN SODIUM/TAZOBACTAM 4.5 GM in NS (IVPB) 100 ML IV SCH ×2 (15:14→23:28)
[2021-09-03 15:32] VITALS: BP 135/63
[2021-09-03 15:39] VITALS: BP 163/78
[2021-09-03] MEDS ORDERED: FLUCONAZOLE 200 MG/100 ML 100 ML IV ONE (16:15)
[2021-09-03 19:10] VITALS: BP 156/76
[2021-09-03] MEDS: DOCUSATE SODIUM 100 MG (COLACE) CAP PO SCH (20:33)
[2021-09-03] MEDS: SENNOSIDES 8.6 MG (SENOKOT) TAB PO SCH (20:33)
[2021-09-03] MEDS: VANCOMYCIN 1250 MG/NS 250 ML IVPB IV SCH ×2 (22:11)
[2021-09-04] VITALS: BP 145/74
--- NOTE | 2021-09-04 01:05 | CONSULTATION REPORT ---
DATE OF SERVICE: ATTENDING PRIMARY CARE PHYSICIAN: Dr. Narciso Stoll. HISTORY OF PRESENT ILLNESS: The patient is an 81-year-old male, who was brought to the Emergency Department due to pain and swelling along bilateral lower extremities. The patient is a very poor historian and appears to have some level of dementia. His son accompanied the patient in the room. He states that he has been essentially nonambulatory for the past two years. He also states that the swelling of the bilateral lower extremity starting from the feet to the knees has been around for 2 years as well. Over time, a thick crusted skin with small areas of clear drainage have developed as well as a very foul odor. Upon examination, he has very severe acute on chronic venous insufficiency. This is likely due to his body habitus as well as his nonambulatory state. There is also some surrounding cellulitis. There is no abscess. PAST MEDICAL HISTORY: Bilateral chronic venous insufficiency, hypertension, history of prostate cancer, renal insufficiency, urinary retention. PAST SURGICAL HISTORY: Laparoscopic cholecystectomy, prostatectomy. ALLERGIES: No known drug allergies. MEDICATIONS: Amlodipine 5 mg daily, bethanechol 25 mg q.i.d., cefuroxime 250 mg b.i.d., clonidine 0.1 mg b.i.d., furosemide 40 mg daily, metoprolol 25 mg daily, phenazopyridine 100 mg b.i.d., potassium 10 mEq daily, Urecholine 50 mg q.i.d. SOCIAL HISTORY: Negative smoke. Positive alcohol. FAMILY HISTORY: Noncontributory. VITAL SIGNS: Temperature 36.9, blood pressure 156/76, pulse 99, respirations 23, pulse ox 94% on room air. REVIEW OF SYSTEMS: This is an obese male, who answer some questions appropriately; however, seems somewhat disoriented and a very poor historian. He is not experiencing any shortness of breath or difficulty breathing. No chest pain, palpitations, diaphoresis. No cough or sputum production. No nausea, vomiting. No known diarrhea or constipation. No fever, chills, no recent inadvertent weight loss. All other review of systems negative. PHYSICAL EXAMINATION: CHEST: Few scattered rales bilaterally. HEART: Regular, no murmurs. EXTREMITIES: +3/3 bilateral lower extremity edema with thick heaped up skin along the distribution of the dorsal and plantar aspects of the foot, ankle distribution as well as more proximal. There are also several very small areas of openings with a serous drainage. There is no fluctuance to indicate any abscess. HEENT: No scleral icterus. NECK: No cervical lymphadenopathy. ABDOMEN: Soft, nontender, nondistended. SKIN: Warm, dry. LABORATORY DATA: WBC 15.1, hemoglobin 12.4, hematocrit 39, platelets 472. BUN 26, creatinine 1.66. ASSESSMENT AND PLAN: An 81-year-old male with severe acute on chronic bilateral lower extremity venous insufficiency. Treatment will encompass a multistep process. He will need to maximize his medical status as well as lose weight and increase his ambulatory status. We will also need to proceed with compression with John bandages initially from the forefoot all the way to above the knee on a daily basis as well as leg elevation at all times. Once the edema has subsided, he may be a candidate for placement of an Unna boot. After which he will likely need fitted compression garments in a graded fashion. There is no role for debridement due to the chronic nature and severe edema, which would create large open wounds, which would not heal due to the severe edema and chronic venous insufficiency. Job ID: [id number] DocumentID: [id number] Dictated Date: 09/03/2021 19:59:39 Vending Machine Filler Date: 09/03/2021 22:11:10 Dictated By: PETER GALVAN MD
[2021-09-04 04:00] VITALS: BP 154/74
--- NOTE | 2021-09-04 06:15 | Progress Note - Hospitalist ---
Subjective HPI/CC On Admission Date Seen by Provider: September 04, 2021 Time Seen by Provider: 09:30 Chief complaint: Bilateral lower extremity cellulitis History of present illness: This is an 81-year-old male of [facility] who resides in a camper with his who has a past medical history of chronic lower extremity lymphedema who presented to the ER with weakness and fever found to have bilateral lower extremity cellulitis on chronic lymphedema condition. Patient appears to have multiple wounds and wound care will be consulted. The son and his are at the bedside and are requesting DPOA papers to be signed and placement. Subjective/Events-last exam Patient doing well IV antibiotics continue Speech therapy for dysphagia and apple juice aspiration Family at the bedside Updated social media analyst on the need for placement at discharge Patient short of breath and coarse breath sounds so we will check chest x-ray add BNP to labs and give 1 dose of Lasix Patient overall is very declined Review of Systems General: Fatigue Pulmonary: Dyspnea Focused Exam Lactate Level 09/03/21 07:40: Lactic Acid Level 2.16*H 09/03/21 10:03: Lactic Acid Level 1.65 Time of Focused Exam: 929 Objective Exam Vital Signs Vital Signs Date Time Temp Pulse Resp B/P (MAP) Pulse Ox O2 Delivery O2 Flow Rate FiO2 09/04/21 11:14 37.0 93 17 146/69 (94) 91 Room Air Capillary Refill : Less Than 3 Seconds General Appearance: No Apparent Distress, WD/WN, Chronically ill Respiratory: No Accessory Muscle Use, Crackles, Decreased Breath Sounds Cardiovascular: Regular Rate, Rhythm Neurologic/Psychiatric: Alert, Oriented x3, Depressed Affect Results/Procedures Lab Laboratory Tests 09/04/21 05:35 Patient resulted labs reviewed. Assessment/Plan Assessment and Plan Assess & Plan/Chief Complaint Assessment: Bilateral lower extremity cellulitis Chronic lymphedema History of prostate cancer Poor living conditions Plan: DPOA papers Supportive care IV antibiotic Needs placement 09/04/2021: Supportive care IV antibiotics Lasix 40 Mg IV x1 Echo Speech therapy eval due to dysphagia and aspiration risk Add BNP to labs Cardiology consult Diagnosis/Problems Diagnosis/Problems (1) Bilateral lower leg cellulitis Status: Acute (2) Generalized weakness Status: Acute (3) Decubitus ulcers Status: Acute (4) Acute renal insufficiency Status: Acute (5) Obesity Status: Acute (6) Venous stasis ulcers of both lower extremities Status: Acute (7) Urinary incontinence Status: Acute Clinical Quality Measures DVT/VTE Risk/Contraindication: Contraindications-Mechi: Other *list below* Other: leg cellulitis b/l MARLO HIGGINS DO September 04, 2021 06:15
[2021-09-04] MEDS: PIPERACILLIN SODIUM/TAZOBACTAM 4.5 GM in NS (IVPB) 100 ML IV SCH ×3 (06:27→22:53)
[2021-09-04 06:28] LABS: BASOPHILS # (AUTO) 0.1 10^3/uL (0.0-0.1); BASOPHILS % (AUTO) 0 % (0-10); EOSINOPHILS # (AUTO) 0.2 10^3/uL (0.0-0.3); EOSINOPHILS % (AUTO) 1 % (0-10); HEMATOCRIT 32 % (40-54); HEMOGLOBIN 10.3 g/dL (13.3-17.7); LYMPHOCYTES # (AUTO) 1.5 10^3/uL (1.0-4.0); LYMPHOCYTES % (AUTO) 10 % (12-44); MEAN CORPUSCULAR HEMOGLOBIN 28 pg (25-34); MEAN CORPUSCULAR HGB CONC 32 g/dL (32-36); MEAN CORPUSCULAR VOLUME 89 fL (80-99); MONOCYTES # (AUTO) 0.9 10^3/uL (0.0-1.0); MONOCYTES % (AUTO) 6 % (0-12); NEUTROPHILS # (AUTO) 11.4 10^3/uL (1.8-7.8); NEUTROPHILS % (AUTO) 81 % (42-75); PLATELET COUNT 414 10^3/uL (130-400); WHITE BLOOD COUNT 14.1 10^3/uL (4.3-11.0)
[2021-09-04 06:40] LABS: ALBUMIN 2.5 GM/DL (3.2-4.5)
[2021-09-04 06:41] LABS: POTASSIUM 4.2 MMOL/L (3.6-5.0)
[2021-09-04 06:42] LABS: CALCIUM 7.9 MG/DL (8.5-10.1)
[2021-09-04 06:43] LABS: TOTAL PROTEIN 5.5 GM/DL (6.4-8.2)
[2021-09-04 06:45] LABS: BILIRUBIN,TOTAL 0.7 MG/DL (0.1-1.0)
[2021-09-04 06:46] LABS: CREATININE SERUM 1.4 MG/DL (0.60-1.30)
[2021-09-04 07:56] VITALS: BP 161/76
[2021-09-04] MEDS: SENNOSIDES 8.6 MG (SENOKOT) TAB PO SCH ×2 (08:27→20:37)
[2021-09-04] MEDS: DOCUSATE SODIUM 100 MG (COLACE) CAP PO SCH ×2 (08:27→20:37)
[2021-09-04] MEDS ORDERED: TROUGH ORDER-PHARMACY XX ONE (09:00)
[2021-09-04] MEDS: FLUCONAZOLE 100 MG/50 ML 50 ML IV SCH (09:43)
[2021-09-04] MEDS ORDERED: FUROSEMIDE 40 MG/4 ML INJ (LASIX) IVP ONE (10:00)
--- NOTE | 2021-09-04 10:20 | Wound Care Assessment ---
Wound Care Assessment Date Seen by Provider: September 04, 2021 Time Seen by Provider: 10:14 Chief Complaint 1. Lower extremity wounds 2. Gluteal/Sacral wounds HPI This unfortunate 81 year old gentleman presented over the weekend with sepsis. He has extensive b/l LE lymphedema with associated weeping wounds and cellulitis. He had numerous partial thickness ulcers bilaterally that weep serous fluid. Small ulceration of left anterior tibia with purulent drainage as well (plan for wound culture). He does have odor to lower extremities concerning for candidal infection as well. He is currently on Vancomycin and Zosyn (appropriate broad spectrum choice). He does also have significant cutaneous candidiasis in skin folds of groin along with significant edema to upper thigh and scrotum. No signs of pulmonary edema on recent CXR and respiratory status appears stable (he seems to be tolerating elevation well). Ashok was incontinent of stool while I was present in the room and he is noted to have stage 1 pressure changes to sacrum and small stage 2 ulceration of R. gluteal fold. His wound healing will be complicated by underlying infection, altered mental status, massive lymphedema, protein energy malnutrition, generalized weakness, and immobility. Smoking Status: Unknown if Ever Smoked Other Social Hx SS has been consulted for concern of Ashok's home care. Review of Systems General: Other (Morbid obesity) Cardiovascular: Edema (3+ edema to abdomen) Neurological: Weakness, Confusion Other systems ROS minimal due to patient's current mental status Exam Vital Signs Date Time Temp Pulse Resp B/P (MAP) Pulse Ox O2 Delivery O2 Flow Rate FiO2 09/04/21 07:56 36.7 89 20 161/76 (104) 92 Room Air Capillary Refill : Less Than 3 Seconds General Appearance: mild distress (SOA with conversation), obese HEENT: other (purulent drainage from bilateral eyes with matting/crusting) Cardiovascular: other (Massive b/l pitting edema to abdomen) Respiratory: respiratory distress (SOA with conversation (gurgling at times)) Gastrointestinal: other (fecal incontinence) Extremities: inflammation, pedal edema Neurologic/Psychiatric: alert (Not oriented to place or time) Skin: other (erythema, weeping wounds b/l LE) Skin Problem Location: lower extremities Skin Character: drainage, erythema, scales, swelling, thickening 1. Left anterior tibia: 1 x 0.8x 0.1 cm. The epithelialization is none, there is no tunneling or undermining, drainage is large and purulent, granulation is none, necrotic is large and slough. Margins show epibole 2. R. gluteal fold: 1.5x1.0x0.2. The epithelialization is none, there is no tunneling or undermining. drainage is large and serosanguinous, necrotic is none, margins flat B/L LE with erythema and edema. Occasional blisters, scaling, crusting and thickening prevalent. Lichenification present. Many areas with serous weeping. Results Laboratory Tests 09/04/21 05:35: White Blood Count 14.1H, Red Blood Count 3.63L, Hemoglobin 10.3L, Hematocrit 32L , Mean Corpuscular Volume 89, Mean Corpuscular Hemoglobin 28, Mean Corpuscular Hemoglobin Concent 32, Red Cell Distribution Width 14.9H, Platelet Count 414H, Mean Platelet Volume 9.0, Immature Granulocyte % (Auto) 1, Neutrophils (%) (Auto) 81H, Lymphocytes (%) (Auto) 10L, Monocytes (%) (Auto) 6, Eosinophils (%) (Auto) 1, Basophils (%) (Auto) 0, Neutrophils # (Auto) 11.4H, Lymphocytes # (Auto) 1.5, Monocytes # (Auto) 0.9, Eosinophils # (Auto) 0.2, Basophils # (Auto) 0.1, Immature Granulocyte # (Auto) 0.1, Sodium Level 137, Potassium Level 4.2, Chloride Level 103, Carbon Dioxide Level 23, Anion Gap 11, Blood Urea Nitrogen 27H, Creatinine 1.40H, Estimat Glomerular Filtration Rate 50, BUN/Creatinine Ratio 19, Glucose Level 100, Calcium Level 7.9L, Corrected Calcium 9.1, Total Bilirubin 0.7, Aspartate Amino Transf (AST/SGOT) 27, Alanine Aminotransferase (ALT/SGPT) 20, Alkaline Phosphatase 52, Total Protein 5.5L, Albumin 2.5L 09/04/21 09:00: Vancomycin Level Trough 15.6 Assessment/Plan/Dx Assessment: 1. Massive LE lymphedema with cellulitis 2. Partial thickness ulcerations (many) bilateral LE with serous weeping 3. Cutaneous candidiasis 4. S1 and S2 pressure changes to sacrum and gluteal cleft 5. Protein energy malnutrition Plan: 1. Vashe soak with gentle scrubs twice daily to bilateral LE 2. Agree with broad spectrum antibiotics. Will obtain culture from LLE 3. Agree with Diflucan 4. Miconazole powder and interdry to skin folds 5. Thick layer of barrier ointment and leave LE open to air. Elevate as much as tolerated 6. Cleanse sacrum/gluteal fold daily with Vashe. Thick layer barrier ointment daily and with any soiling. Cover S2 ulcer with bordered foam dressing to be changed daily and prn 7. Frequent positional changes 8. Protein shakes tid with meals ANGELA CALDWELL MD September 04, 2021 10:20
--- NOTE | 2021-09-04 10:23 | Diagnostic Imaging Report ---
INDICATION: Chest crackles. TIME OF EXAM: 10:01 AM. COMPARISON: Correlation is made with the prior chest from one day earlier. FINDINGS: The heart size is stable. There appears to be some central congestion. No overt failure is seen. There is no effusion or pneumothorax. IMPRESSION: Cardiomegaly and central congestion. Dictated by: Dictated on workstation # [id number]
[2021-09-04] MEDS ORDERED: NS IV 500 ML 500 ML ONE (10:52)
--- NOTE | 2021-09-04 11:05 | Consultation-Cardiology ---
HPI-Cardiology Cardiology Consultation Date of Consultation 09/04/21 Date of Admission Time Seen by Provider: 11:00 Indication: Sepsis HPI 81 years old gentleman with history of mild dementia. Patient had generalized weakness, loss of energy, was unable to move by himself and he called ambulance and came to the emergency room. He was noticed to have cellulitis with multiple ulceration on his legs and decubitus ulcer, admitted for sepsis, on my evaluation he was laying down in bed, still having generalized lethargy. Denied any chest pain. He is confused. Family were at bedside. Reported that he was not taking any medication at home and he was able to function at home with the use of a walker. Home Medications & Allergies Allergies: Coded Allergies: No Known Drug Allergies (Unverified , 03/07/20) Home Medication List Reviewed: Yes EGE-Rvcmty-Xpwiau Hx Patient Social History Marital Status: Employed/Student: retired Smoking Status: Unknown if Ever Smoked 2nd Hand Smoke Exposure: No Recent Hopitalizations: No Have you traveled recently?: No Alcohol Use?: Yes Immunizations Up To Date Tetanus Booster (TDap): Unknown Past Medical History Hypertension Family Medical History Family Medical Hx Noncontributory Review of Systems-General Review of Systems Constitutional: see HPI, malaise, weakness EENTM: no symptoms reported Respiratory: no symptoms reported Cardiovascular: no symptoms reported Gastrointestinal: no symptoms reported Genitourinary: no symptoms reported Musculoskeletal: no symptoms reported Skin: see HPI Psychiatric/Neurological: No Symptoms Reported All Other Systems Reviewed Negative Unless Noted: Yes Reviewed Test Results Reviewed Test Results Lab Laboratory Tests Test 09/04/21 05:35 09/04/21 09:00 09/04/21 09:59 Range/Units White Blood Count 14.1 H 4.3-11.0 10^3/uL Red Blood Count 3.63 L 4.30-5.52 10^6/uL Hemoglobin 10.3 L 13.3-17.7 g/dL Hematocrit 32 L 40-54 % Mean Corpuscular Volume 89 80-99 fL Mean Corpuscular Hemoglobin 28 25-34 pg Mean Corpuscular Hemoglobin Concent 32 32-36 g/dL Red Cell Distribution Width 14.9 H 10.0-14.5 % Platelet Count 414 H 130-400 10^3/uL Mean Platelet Volume 9.0 9.0-12.2 fL Immature Granulocyte % (Auto) 1 % Neutrophils (%) (Auto) 81 H 42-75 % Lymphocytes (%) (Auto) 10 L 12-44 % Monocytes (%) (Auto) 6 0-12 % Eosinophils (%) (Auto) 1 0-10 % Basophils (%) (Auto) 0 0-10 % Neutrophils # (Auto) 11.4 H 1.8-7.8 10^3/uL Lymphocytes # (Auto) 1.5 1.0-4.0 10^3/uL Monocytes # (Auto) 0.9 0.0-1.0 10^3/uL Eosinophils # (Auto) 0.2 0.0-0.3 10^3/uL Basophils # (Auto) 0.1 0.0-0.1 10^3/uL Immature Granulocyte # (Auto) 0.1 0.0-0.1 10^3/uL Sodium Level 137 135-145 MMOL/L Potassium Level 4.2 3.6-5.0 MMOL/L Chloride Level 103 98-107 MMOL/L Carbon Dioxide Level 23 21-32 MMOL/L Anion Gap 11 5-14 MMOL/L Blood Urea Nitrogen 27 H 7-18 MG/DL Creatinine 1.40 H 0.60-1.30 MG/DL Estimat Glomerular Filtration Rate 50 BUN/Creatinine Ratio 19 Glucose Level 100 70-105 MG/DL Calcium Level 7.9 L 8.5-10.1 MG/DL Corrected Calcium 9.1 8.5-10.1 MG/DL Total Bilirubin 0.7 0.1-1.0 MG/DL Aspartate Amino Transf (AST/SGOT) 27 5-34 U/L Alanine Aminotransferase (ALT/SGPT) 20 0-55 U/L Alkaline Phosphatase 52 40-136 U/L Total Protein 5.5 L 6.4-8.2 GM/DL Albumin 2.5 L 3.2-4.5 GM/DL Vancomycin Level Trough 15.6 10.0-20.0 UG/ML B-Type Natriuretic Peptide 253.7 H <100.0 PG/ML Physical Exam Physical Exam Vital Signs Vital Signs - First Documented 09/03/21 07:30 Temp 38.1 Pulse 101 Resp 16 B/P (MAP) 135/91 (106) Pulse Ox 93 O2 Delivery Room Air Capillary Refill : Less Than 3 Seconds Height, Weight, BMI Height: '" Weight: lbs. oz. kg; 46.07 BMI Method: General Appearance: No Apparent Distress, WD/WN, Chronically ill Eyes: Right Eye Normal Inspection, Right Eye PERRL HEENT: PERRL/EOMI, Normal ENT Inspection, Pharynx Normal, Moist Mucous Membranes Neck: Full Range of Motion, Normal Inspection, Non Tender Respiratory: Chest Non Tender, Lungs Clear, Normal Breath Sounds, No Accessory Muscle Use, No Respiratory Distress Cardiovascular: Regular Rate, Rhythm, No Edema, No Gallop, No JVD, No Murmur, Normal Peripheral Pulses Gastrointestinal: Normal Bowel Sounds, No Organomegaly, No Pulsatile Mass, Non Tender, Soft Genital/Rectal: Other (ERYTHEMA AND MACERATION TO SCROTUM, PERINEUM, INNER THIGHS, WELL BUTTOCKS AND PERIRECTAL AREAS--DECUBUTUS ULCERS PRESENT WITH SOME AREAS BLEEDING. ) Back: Normal Inspection, No CVA Tenderness, No Vertebral Tenderness Extremity: Normal Capillary Refill, Normal Inspection, Normal Range of Motion, Non Tender, No Calf Tenderness, Pedal Edema (Lymphedema with ulceration on the skin) Neurologic/Psychiatric: Alert, Oriented x3, No Motor/Sensory Deficits, Normal Mood/Affect Skin: Normal Color, Warm/Dry, Rash (Bilateral lower extremity ulcers and cellulitis severe in nature) Lymphatic: No Adenopathy A/P-Cardiology Admission Diagnosis Sepsis Cellulitis Hypertension Dementia Assessment/Plan Sepsis, cellulitis of bilateral lower extremities, managed by primary care physician Lymphedema, chronic pedal edema. Poor hygiene. Not maintained on diuretics Hypertension, history of hypertensive urgency in 2019. Patient does not take any medication Dementia, worsening of mental status, patient is disoriented to time and place, probably secondary to sepsis. Metabolic acidosis. Better at this time. Continue to monitor Acute on chronic renal insufficiency, monitor renal function Mild elevation in BNP. Patient is scheduled for 2D echo. Clinical Quality Measures DVT/VTE Risk/Contraindication: Contraindications-Mechi: Other *list below* Other: leg cellulitis b/l TERESA FINK MD September 04, 2021 11:05
[2021-09-04] MEDS: HYPOCHLOROUS ACID/NaCl (VASHE) 250 ML IR SCH ×2 (11:09→20:37)
[2021-09-04] MEDS: VANCOMYCIN 1250 MG/NS 250 ML IVPB IV SCH ×4 (11:10→21:32)
[2021-09-04] MEDS: MICONAZOLE 2% POWDER (DESENEX AF) 90 GM TOP SCH ×2 (11:10→20:37)
[2021-09-04 11:14] VITALS: BP 146/69
[2021-09-04] MEDS: ENOXAPARIN 40 MG/0.4 ML (LOVENOX) SYR SC SCH ×2 (11:14→22:53)
--- NOTE | 2021-09-04 11:29 | Physical Therapy Evaluation ---
PT Evaluation-General Medical Diagnosis Admission Date September 03, 2021 at 09:49 Medical Diagnosis: Bilateral LE cellulitis Onset Date: September 03, 2021 Therapy Diagnosis Therapy Diagnosis: Impaired mobility, strength Precautions Precautions/Isolations: Fall Prevention, Standard Precautions Referral Physician: [place] Reason for Referral: Evaluation/Treatment Medical History Pertinent Medical History: HTN Additional Medical History Prostatectomy, Chronic Edema/Swelling Reviewed History: Yes Social History Home: Single Level (lives in an ) Current Living Status: Spouse Entry Into Home: Ramp Prior Prior Level of Function SCALE: Activities may be completed with or without assistive devices. 4-Nsbmhnfcwi-ejbddiw completes the activity by him/herself with no assistance from a helper. 5-Set-up or Clean-up Assistance-helper sets up or cleans up; patient completes activity. [place] assists only prior to or following the activity. 4-Supervision or Touching Assistance-helper provides verbal cues and/or touching/steadying and/or contact guard assistance as patient completes activity. Assistance may be provided throughout the activity or intermittently. 3-Partial/Moderate Assistance-helper does LESS THAN HALF the effort. [place] lifts, holds or supports trunk or limbs, but provides less than half the effort. 2-Substantial/Maximal Assistance-helper does MORE THAN HALF the effort. [place] lifts or holds trunk or limbs and provides more than half the effort. 3-Prjokprnf-kfiryk does ALL the effort. Patient does none of the effort to complete the activity. Or, the assistance of 2 or more helpers is required for the patient to complete the activity. If activity was not attempted, code reason: 7-Patient Refused. 9-Not Applicable-not attempted and the patient did not perform the activity before the current illness, exacerbation or injury. 10-Not Attempted due to Environmental Limitations-(lack of equipment, weather restraints, etc.). 88-Not Attempted due to Medical Conditions or Safety Concerns. Bed Mobility: 6 Transfers (B,C,W/C): 6 Gait: 6 Stairs: 6 Indoor Mobility (Ambulation): Independent Stairs: Independent Prior Devices Use: None PT Evaluation-Current Subjective Patient's family was in room upon entering. Patient was compliant to start treatment. Patient had some trouble verbally communicating with us. Pain Numeric Pain Scale: 0-No Pain Pt/Family Goals To be independent at home. Objective Patient Orientation: Person, Confused, Place Attachments: Taylor Catheter ROM/Strength ROM Lower Extremities Grossly impaired bilaterally due to edema. Strength Lower Extremities Unable to assess due to lack of active range of motion. Integumentary/Posture Bowel Incontinence: Yes Bladder Incontinence: Taylor Cath Sensory Vision: Functional Hearing: Functional Sensation Right Lower Extremit: Intact Sensation Left Lower Extremity: Intact Transfers Roll Left to Right (QC): 2 Sit to Lying (QC): 1 Lying to Sitting/Side of Bed(Q: 1 Sit to Stand (QC): 1 Gait Does the Patient Walk?: No and Walking Goal IS indicated Balance Sitting Static: Poor Sitting Dynamic: Poor Standing Static: Poor Standing Dynamic: Poor Treatment Standing tolerance. bed mobility Assessment/Needs Patient had significant weakness with LE movements and required mod assist x 2 for bed mobility and sit<->stand, he was able to stand with assist for about 30 seconds in order to clean up a BM and get new pad down. Patient was left with call light, tray and all needs met. Rehab Potential: Poor PT Detention Goals Detention Goals PT Detention Goals Time Frame: September 11, 2021 Roll Left & Right (QC): 3 Sit to Lying (QC): 3 Lying-Sitting on Side/Bed(QC): 3 Sit to Stand (QC): 3 Chair/Fwb-we-Oyfch Xfer(QC): 3 PT Plan Problem List Problem List: Activity Tolerance, Functional Strength, Safety, Balance, Gait, Transfer, Bed Mobility, ROM Treatment/Plan Treatment Plan: Continue Plan of Care Treatment Plan: Bed Mobility, Education, Functional Activity Giovanna, Functional Strength, Gait, Safety, Therapeutic Exercise, Transfers Treatment Duration: September 11, 2021 Frequency: 6 times per week Estimated Hrs Per Day: .25 hour per day Patient and/or Family Agrees t: Yes Safety Risks/Education Patient Education: Transfer Techniques, Correct Positioning, Safety Issues Teaching Recipient: Patient Teaching Methods: Discussion Response to Teaching: Verbalize Understanding, Reinforcement Needed Discharge Recommendations Plan to work on strength, transfers, ambulation to return to prior level of function Therapy Discharge Recommendati: 24 Hour Supervision Time/GCodes Time In: 1050 Time Out: 1106 Total Billed Treatment Time: 16 Total Billed Treatment 1 visit EVM 16min KRISTIE POSEY PT September 04, 2021 11:29
--- NOTE | 2021-09-04 11:50 | Occupational Therapy Eval ---
OT Evaluation-General/PLF Medical Diagnosis Admission Date September 03, 2021 at 09:49 Medical Diagnosis: Bilateral LE cellulitis Onset Date: September 03, 2021 Therapy Diagnosis Therapy Diagnosis: decreased ADL status, weakness Precautions Precautions/Isolations: Fall Prevention, Standard Precautions Referral Physician: Cleveland Brown Reason: Evaluation/Treatment Medical History Pertinent Medical History: HTN Additional Medical History chronic LE lymphedema, prostate cancer with radiation and surgical intervention, prostatectomy Current History ED with weakness and fever, found to have BLE cellulitis on chronic lymphydema condition Social History Home: Single Level ([facility]) Current Living Status: Spouse Entry Into Home: Ramp ADL-Prior Level of Function SCALE: Activities may be completed with or without assistive devices. 3-Ieragnqxms-sydxndw completes the activity by him/herself with no assistance from a helper. 5-Set-up or Clean-up Assistance-helper sets up or cleans up; patient completes activity. [place] assists only prior to or following the activity. 4-Supervision or Touching Assistance-helper provides verbal cues and/or touching/steadying and/or contact guard assistance as patient completes activity. Assistance may be provided throughout the activity or intermittently. 3-Partial/Moderate Assistance-helper does LESS THAN HALF the effort. [place] lifts, holds or supports trunk or limbs, but provides less than half the effort. 2-Substantial/Maximal Assistance-helper does MORE THAN HALF the effort. [place] lifts or holds trunk or limbs and provides more than half the effort. 3-Whymjwbpw-slgloi does ALL the effort. Patient does none of the effort to complete the activity. Or, the assistance of 2 or more helpers is required for the patient to complete the activity. If activity was not attempted, code reason: 7-Patient Refused. 9-Not Applicable-not attempted and the patient did not perform the activity before the current illness, exacerbation or injury. 10-Not Attempted due to Environmental Limitations-(lack of equipment, weather restraints, etc.). 88-Not Attempted due to Medical Conditions or Safety Concerns. ADL PLOF Comments Pt reports requiring assistance with ADLs at PLOF, pt did not provide detail as to how much assistance is needed. He did not use AD for functional mobility. Self Care: Needed Some Help Functional Cognition: Needed Some Help OT Current Status Subjective Pt in bed, family at bedside, pt agreeable to OT tx. Mental Status/Objective Patient Orientation: Person, Confused Attachments: Taylor Catheter Current Upper Extremity ROM decreased bilaterally Upper Extremity Strength grossly 3/5 ADL-Treatment Eating (QC): 5 (per nursing report, pt able to feed himself) Shower/Bathe Self (QC): 1 (assist x2 per clinical judgment.) On/Off Footwear (QC): 1 Toileting Hygiene (QC): 1 Other Treatments Pt in bed, transferred supine to sit EOB (mod A x2), pt leaning heavily towards R side at EOB, requiring moderate assistance. Pt stood from EOB, mod A x2, able to stand at EOB in order for posterior hygiene to be complete due to incontinent of bowels. Pt had red blood present on wet wipes, nursing aware. Pt sat back EOB, then required assist x2 to transfer supine, and assist to boost towards HOB. Post tx, pt in bed, call light in reach and all needs met. Education OT Patient Education: Correct positioning, Energy conservation, Modified ADL techniques, Progress toward Goal/Update tx plan, Purpose of tx/functional activities, Rehab process Teaching Recipient: Patient Teaching Methods: Discussion Response to Teaching: Verbalize Understanding OT Custodial Goals Custodial Goals Time Frame: September 22, 2021 Eating (QC): 5 Oral Hygiene (QC): 5 Toileting Hygiene (QC): 3 Upper Body Dressing (QC): 3 Additional Goals: 1-Demonstrate ADL Tasks, 2-Verbalize Understanding, 3- ImproveStrength/Giovanna 1=Demonstrate adherence to instructed precautions during ADL tasks. 2=Patient will verbalize/demonstrate understanding of assistive devices/modifications for ADL. 3=Patient will improve strength/tolerance for activity to enable patient to perform ADL's. OT Education/Plan Problem List/Assessment Assessment: Decreased Activ Tolerance, Decreased UE Strength, Dependent Transfers, Impaired Bed Mobility, Impaired Funct Balance, Impaired I ADL's, Impaired Self-Care Skills, Restricted Funct UE ROM Discharge Recommendations Plan/Recommendations: Continue POC Treatment Plan/Plan of Care Patient would benefit from OT for education, treatment and training to promote independence in ADL's, mobility, safety and/or upper extremity function for ADL's. Plan of Care: ADL Retraining, Functional Mobility, UE Funct Exercise/Act Treatment Duration: September 22, 2021 Frequency: 3 times per week (3-5 times per week) Estimated Hrs Per Day: .25 hour per day Rehab Potential: Guarded Time/GCodes Start Time: 10:50 Stop Time: 11:08 Total Time Billed (hr/min): 18 Billed Treatment Time 1, SHAYE ANAND OT September 04, 2021 11:50
--- NOTE | 2021-09-04 12:50 | ST Dysphagia Evaluation ---
Speech Evaluation-General Medical Diagnosis Bilateral LE cellulitis Onset Date: September 03, 2021 Therapy Diagnosis Therapy Diagnosis: Oropharyngeal Dysphagia Precautions Precautions: Fall, Aspiration Precautions/Isolations: Aspiration, Fall Prevention, Standard Precautions Referral Referring Physician: Dr. Guthrie Reason for Referral: Evaluation/Treatment Medical History Pertinent Medical History: HTN Current History The patient is an 81 year-old male with a history of chronic lymphedema, who presented to [facility] with weakness and fever. The patient was found to have bilateral lower extremity cellulitis. 09/04/21: CXR: Cardiomegaly and central congestion. Reviewed History: Yes Social History Current Living Status: Spouse Speech PLF/Current-Dysphagia Prior Level of Function Per patient's family, the patient consumed a regular consistency diet with thin liquids at home. The patient's family denied s/s of suspected aspiration with the patient's current diet consistency. Subjective The patient was seated upright in bed, awake upon entrance to his room by the clinician. The patient returned the clinician's verbal greeting. The patient has two family members present at bedside. The family members provide additional medical history for the clinician, however, leave the room for the evaluation. The patient poorly follows simple, one-step commands. Additionally, the patient falls in and out of sleep throughout the assessment. Per patient's family, the patient stated his apple juice "stuck" in his throat during his breakfast. Cognitive Status Patient Orientation: Confused Oral Motor Skills Dentition: Natural Current Food Consistancy: Regular, Thin Liquids Ability to Follow Directions: Poor Oral Expression Ability: Moderate Impairment Voice Voice Phonatory-Based Quality: Normal Voice Pitch: Normal Voice Loudness: Mildly Soft/Quiet Face Facial Symmetry: Symmetrical Oral-Facial Assessment Oral-Facial Dentition: Normal Labial Seal Description: Weak Smile: Reduced ROM, Poor Coordination Lingual Protrusion: Normal Volitional Dry Swallow: No Voluntary Cough: No Can Clear Throat Volitionally: Yes Productive Cough: No Productive Throat Clear: No Dysphagia Evaluation Consistencies Presented: Thin Liquid (Ice tea via straw.), Mechanical Soft (Chicken Pot Pie (the clinician mixed the bread with the filling)), Pureed (Applesauce.), Mixed (Oranges.) Oral Phase: Oral Residue, Unable to Form Bolus, Reduced Oral Transit The patient demonstrated poor oral coordination and strength, displaying prolonged attempts at bolus formation and posterior transfer. Intermittently, oral holding of bolus material was displayed. As the patient orally held the iced tea in his oral cavity, the clinician continuously provided verbal prompts to elicit a swallow. As the clinician verbally prompted the patient shook his head no. Following the swallow, the patient stated, "I don't know why I can't do it." Pharyngeal Phase: Multiple Swallow Attempts, Delayed Swallow Funct. Velo/Pharyngeal Symptom: Clears Throat, Cough After Swallow The patient demonstrated a rigorous cough following one of five straw drinks of iced tea. Additionally, a rigorous cough was displayed following a bite of the bread crust for the chicken pot pie. Prior to P.O. trials, throughout P.O. trials, and following the patient demonstrated wet throat clearing. The patient reported he was unable to clear the "junk" from his throat. The patient's throat clearing behavior increased in frequency and "wetness" as P.O. trials continued. Dietary Recommendations: NPO Liquid Recommendations: NPO Recommendations: - The patient should remain NPO. - Frequent and thorough oral care to reduce the transfer of oral bacteria to the lungs should aspiration of secretions occur. - Speech pathology to continue oropharyngeal swallowing re-assessments as the patient remains appropriate. The results and recommendations were discussed thoroughly with the patient. Per patient, "I don't think it's a good idea either." The patient's water and food tray was removed from bedside. The patient is at at elevated risk for aspiration secondary to the s/s of suspected aspiration demonstrated throughout today's assessment, however, also secondary to the patient's poor alertness level, mentation, and ability to follow verbal commands. Dysphagia Evaluation Summary The patient demonstrated oropharyngeal dysphagia characterized by poor lingual and oral range of motion, coordination, and strength, and poor airway protection in the presence of bolus material. Overall, the patient is at an elevated risk for aspiration secondary to his poor alertness level, mentation, and ability to follow verbal commands. Speech Short Term Goals Short Term Goals Short Term Goals 1. The patient will tolerate trials of the least restrictive consistency without s/s of suspected aspiration. Time Frame-STG: Three Days. Speech Lead Solutions Architect Goals [facility] Goals 1. The patient will tolerate the least restrictive diet without s/s of suspected aspiration. Time Frame: One Week. Speech-Plan Patient/Family Goals Patient/Family Goals: Per chart review, the patient's family desires "placement" for the patient following discharge. Treatment Plan Speech Therapy Treatment Plan: Continue Plan of Care Treatment Duration: September 11, 2021 Frequency: 3 times per week Estimated Hrs Per Day: .25 hour per day Rehab Potential: Guarded Pt/Family Agrees to Plan: Yes Safety Risks/Education Teaching Recipient: Patient Teaching Methods: Discussion Response to Teaching: Reinforcement Needed Education Topics Provided: Results and Recommendations of BSE, S/s of Suspected Aspiration. The clinician attempted to visit with family members, however, family members were not present on three attempts. The recommendations were discussed with the RN. Time Speech Therapy Time In: 11:35 Speech Therapy Time Out: 12:00 Total Billed Time: 25 Billed Treatment Time 1, MIKE CHANG EL[facility] ST September 04, 2021 12:50
[2021-09-04] MEDS ORDERED: NS 100 ML (IVPB) BAG IV SCH (14:15)
[2021-09-04] MEDS: NS IV 1000 ML 1,000 ML IV SCH (15:26)
[2021-09-04 15:52] VITALS: BP 144/67
[2021-09-04 18:53] LABS: ABG BASE EXCESS 2.9 MMOL/L (-2.5-2.5); ABG OXYGEN SATURATION 95 % (94-100); ABG PCO2 37 MMHG (35-45); ABG PH 7.46 (7.37-7.43); ABG PO2 78 MMHG (79-93); ABG TCO2 27.4 MMOL/L (21.0-31.0)
[2021-09-04 18:54] LABS: ALLENS TEST YES-POS; INSPIRED O2 2L; PATIENT TEMP 37.5; VENTILATOR NO
[2021-09-04 19:37] VITALS: BP 146/65
[2021-09-05] VITALS (8 sets, daily range): BP systolic 150–207; BP diastolic 70–101
--- NOTE | 2021-09-05 05:20 | Progress Note - Hospitalist ---
Subjective HPI/CC On Admission Date Seen by Provider: September 05, 2021 Time Seen by Provider: 10:00 Chief complaint: Bilateral lower extremity cellulitis History of present illness: This is an 81-year-old male of [facility] who resides in a camper with his who has a past medical history of chronic lower extremity lymphedema who presented to the ER with weakness and fever found to have bilateral lower extremity cellulitis on chronic lymphedema condition. Patient appears to have multiple wounds and wound care will be consulted. The son and his are at the bedside and are requesting DPOA papers to be signed and placement. Subjective/Events-last exam Pt is still not having any oral intake due to aspiration risk Antibiotics maintained for lower extremities Wound care maintaining treatment for wounds Multiple family members at the bedside Having difficulty with placement in a senior care Poor prognosis long term acute care registered nurse given his advanced age and sedentary status Review of Systems General: Fatigue, Malaise Neurological: Weakness Focused Exam Lactate Level 09/03/21 07:40: Lactic Acid Level 2.16*H 09/03/21 10:03: Lactic Acid Level 1.65 Time of Focused Exam: 929 Objective Exam Vital Signs Vital Signs Date Time Temp Pulse Resp B/P (MAP) Pulse Ox O2 Delivery O2 Flow Rate FiO2 09/05/21 23:01 36.4 81 22 177/94 (121) 93 Room Air 09/05/21 08:46 2.00 Capillary Refill : Less Than 3 Seconds General Appearance: No Apparent Distress, WD/WN, Chronically ill, Obese Respiratory: Lungs Clear, Normal Breath Sounds Cardiovascular: Regular Rate, Rhythm Neurologic/Psychiatric: Alert, Oriented x3 Results/Procedures Lab Laboratory Tests 09/05/21 05:47 Patient resulted labs reviewed. Assessment/Plan Assessment and Plan Assess & Plan/Chief Complaint Assessment: Bilateral lower extremity cellulitis Chronic lymphedema History of prostate cancer Poor living conditions Dysphagia aspiration risk Plan: DPOA papers Supportive care IV antibiotic Needs placement 09/04/2021: Supportive care IV antibiotics Lasix 40 Mg IV x1 Echo Speech therapy eval due to dysphagia and aspiration risk Add BNP to labs Cardiology consult 09/05/21: Supportive care Speech therapy Antibiotics Diagnosis/Problems Diagnosis/Problems (1) Bilateral lower leg cellulitis Status: Acute (2) Generalized weakness Status: Acute (3) Decubitus ulcers Status: Acute (4) Acute renal insufficiency Status: Acute (5) Obesity Status: Acute (6) Venous stasis ulcers of both lower extremities Status: Acute (7) Urinary incontinence Status: Acute Clinical Quality Measures DVT/VTE Risk/Contraindication: Contraindications-Mechi: Other *list below* Other: leg cellulitis b/l MARLO HIGGINS DO September 05, 2021 05:20
[2021-09-05 05:58] LABS: BASOPHILS # (AUTO) 0.1 10^3/uL (0.0-0.1); BASOPHILS % (AUTO) 1 % (0-10); EOSINOPHILS # (AUTO) 0.4 10^3/uL (0.0-0.3); EOSINOPHILS % (AUTO) 3 % (0-10); HEMATOCRIT 33 % (40-54); HEMOGLOBIN 10.4 g/dL (13.3-17.7); LYMPHOCYTES # (AUTO) 1.9 10^3/uL (1.0-4.0); LYMPHOCYTES % (AUTO) 17 % (12-44); MEAN CORPUSCULAR HEMOGLOBIN 28 pg (25-34); MEAN CORPUSCULAR HGB CONC 31 g/dL (32-36); MEAN CORPUSCULAR VOLUME 89 fL (80-99); MONOCYTES # (AUTO) 0.8 10^3/uL (0.0-1.0); MONOCYTES % (AUTO) 7 % (0-12); NEUTROPHILS # (AUTO) 7.8 10^3/uL (1.8-7.8); NEUTROPHILS % (AUTO) 71 % (42-75); PLATELET COUNT 407 10^3/uL (130-400)
[2021-09-05 06:10] LABS: ALBUMIN 2.6 GM/DL (3.2-4.5); POTASSIUM 4.5 MMOL/L (3.6-5.0)
[2021-09-05 06:11] LABS: CALCIUM 7.9 MG/DL (8.5-10.1)
[2021-09-05 06:13] LABS: TOTAL PROTEIN 5.7 GM/DL (6.4-8.2)
[2021-09-05 06:14] LABS: BILIRUBIN,TOTAL 0.6 MG/DL (0.1-1.0)
[2021-09-05 06:16] LABS: CREATININE SERUM 1.24 MG/DL (0.60-1.30)
[2021-09-05] MEDS: RT-ALBUTEROL SULF 2.5 MG/3 ML PRE-MIX VIAL INH PRN (08:00)
--- NOTE | 2021-09-05 08:34 | Cardiology Progress Note ---
Subjective Date Seen by Provider: September 05, 2021 Time Seen by Provider: 08:31 Subjective/Events-last exam Patient was seen at bedside, laying down comfortably, having some shortness of breath and wheezing Review of Systems General: No Chills, No Night Sweats; Fatigue, Malaise; No Appetite, No Other HEENT: No Head Aches, No Visual Changes, No Eye Pain, No Ear Pain, No D ysphasia, No Sinus Congestion, No Post Nasal Drip, No Sore Throat, No Other Pulmonary: Dyspnea; No Cough, No Pleuritic Chest Pain, No Other Cardiovascular: Edema; No: Chest Pain, Palpitations, Orthopnea, Paroxysmal Noc. Dyspnea, Lt Headedness, Other Focused Exam Lactate Level 09/03/21 07:40: Lactic Acid Level 2.16*H 09/03/21 10:03: Lactic Acid Level 1.65 Time of Focused Exam: 929 Objective-Cardiology Exam Last Set of Vital Signs Vital Signs 09/05/21 09/05/21 04:37 08:00 Temp 36.5 Pulse 83 Resp 20 B/P (MAP) 164/71 (102) Pulse Ox 96 O2 Delivery Nasal Cannula O2 Flow Rate 2.00 I&O Intake and Output 09/05/21 00:00 Intake Total 1342.5 ml Output Total 3003 ml Balance -1660.5 ml Intake Oral 480 ml IV Total 862.5 ml Output Urine Total 3000 ml Stool Total 3 ml # Bowel Movements 1 General: Alert, Cooperative HEENT: Atraumatic Neck: Supple Lungs: Normal Air Movement, Other (Bilateral wheezing) Heart: Normal S1, Normal S2, Other (Lymphedema) Abdomen: Normal Bowel Sounds Extremities: No Clubbing, Other (Lymphedema with blisters and cellulitis on the lower extremities) Skin: Other (Blisters on the lower extremities) Neuro: Normal Speech Psych/Mental Status: Mood NL Results Lab Laboratory Tests 09/05/21 05:47 A/P-Cardiology Admission Diagnosis Sepsis Cellulitis Hypertension Dementia Assessment/Plan Sepsis, cellulitis of bilateral lower extremities, started on Diflucan IV, vancomycin IV and Zosyn IV, managed by primary care physician Lymphedema, chronic pedal edema. Poor hygiene. Not maintained on diuretics Hypertension, history of hypertensive urgency in 2019. Patient does not take any medication 2D echocardiogram was done on September 04, 2021, poor window, normal LV size and function, ejection fraction 55%. Unable to evaluate pulmonary artery pressure Dementia, worsening of mental status, patient is disoriented to time and place, probably secondary to sepsis. Metabolic acidosis. Better at this time. Continue to monitor Acute on chronic renal insufficiency, monitor renal function Mild elevation in BNP. Patient is scheduled for 2D echo. TERESA FINK MD September 05, 2021 08:34
--- NOTE | 2021-09-05 08:59 | Speech Therapy Daily Note ---
Speech Daily Progress Note Subjective Date Seen by Provider: September 05, 2021 Time Seen by Provider: 08:16 The patient was lying in bed, awake and alert upon entrance to his room by the clinician. The patient greeted the clinician appropriately and was agreeable to participation in the dysphagia treatment session on this date. The patient has four members present in his room, who remained for the session. Objective The patient was seated upright in bed by the clinician for safe swallowing. The patient was provided an ice chip, a teaspoon of water, five teaspoons of nectar- thick liquid, one straw drinks of nectar-thick liquid, and four teaspoons of applesauce. - Ice Chip, Teaspoon of Water: The patient demonstrated an immediate, rigorous cough following the delayed swallow of the ice chip and thin liquid bolus. The patient additionally displayed a red face and watery eyes. The patient appears to being having oral difficulty with coordination and elicitation of the pharyngeal swallow. - Cavalero-thick liquid, puree: Delayed throat clearing behavior was demonstrated following the swallow with nectar-thick liquid and puree. Frequent verbal prompting and tactile stimulation were required for transfer of bolus material posterior in the oral cavity to elicit a pharyngeal swallow. The patient sounded "wet" and "gurgly" throughout the evaluation, being unable to clear secretions regardless of verbal prompting from the clinician. The nita alvarado's son stated the patient's swallowing issues began approximately one week ago. Recommendations: - The patient should remain NPO. - Moist swabs may be used for gentle oral comfort. - Frequent and thorough oral care to reduce the transfer of oral bacteria to the lungs should aspiration of secretions occur. - The patient is scheduled for participation in a modified barium swallow on 09/06/21 at 11:30. Additional recommendations to follow completion of the formal swallow study. The results and recommendations were extensively reviewed with the patient and the patient's family members (four were present in the room for the re- assessment). The patient and the patient's family members denied additional questions or concerns for the clinician at this time. Due to the patient's size, a C-arm may be most appropriate for completion of the modified barium swallow. The information was shared with the sales representative education courses during the clinician's visit. Assessment Assessment Current Status: Poor Progress Treatment Plan Continue Plan of Care Speech Short Term Goals Short Term Goals Short Term Goals 1. The patient will tolerate trials of the least restrictive consistency without s/s of suspected aspiration. Time Frame-STG: Three Days. Speech Rivet Tapping Machine Operator Goals Rivet Tapping Machine Operator Goals 1. The patient will tolerate the least restrictive diet without s/s of suspected aspiration. Time Frame: One Week. Speech-Plan Treatment Plan Speech Therapy Treatment Plan: Continue Plan of Care Treatment Duration: September 11, 2021 Frequency: 3 times per week Estimated Hrs Per Day: .25 hour per day Rehab Potential: Guarded Pt/Family Agrees to Plan: Yes Safety Risks/Education Teaching Recipient: Patient, Family Teaching Methods: Discussion Response to Teaching: Reinforcement Needed Education Topics Provided: Modified Barium Swallow Education, Oropharyngeal Swallowing Education, Results and Recommendations Time Speech Therapy Time In: 08:16 Speech Therapy Time Out: 08:51 Total Billed Time: 35 Billed Treatment Time 1MIKE ELIZABETH ST September 05, 2021 08:59
[2021-09-05] MEDS: FLUCONAZOLE 100 MG/50 ML 50 ML IV SCH (09:13)
[2021-09-05] MEDS: SENNOSIDES 8.6 MG (SENOKOT) TAB PO SCH ×2 (09:13→20:35)
[2021-09-05] MEDS: HYPOCHLOROUS ACID/NaCl (VASHE) 250 ML IR SCH ×2 (09:13→20:36)
[2021-09-05] MEDS: DOCUSATE SODIUM 100 MG (COLACE) CAP PO SCH ×2 (09:13→20:35)
[2021-09-05] MEDS: PIPERACILLIN SODIUM/TAZOBACTAM 4.5 GM in NS (IVPB) 100 ML IV SCH ×3 (09:13→22:53)
[2021-09-05] MEDS: MICONAZOLE 2% POWDER (DESENEX AF) 90 GM TOP SCH ×2 (09:14→20:41)
--- NOTE | 2021-09-05 10:42 | Occupational Ther Daily Note ---
OT Current Status-Daily Note Subjective Pt in bed, agreeable to OT Tx. Family members present. ADL-Treatment Therapy Code Descriptions/Definitions Functional [place] Measure: 0=Not Assessed/NA 4=Minimal Assistance 1=Total Assistance 5=Supervision or Setup 2=Maximal Assistance 6=Modified [place] 3=Moderate Assistance 7=Complete IndependenceSCALE: Activities may be completed with or without assistive devices. 1-Reipplihav-cgnpbkx completes the activity by him/herself with no assistance from a helper. 5-Set-up or Clean-up Assistance-helper sets up or cleans up; patient completes activity. [place] assists only prior to or following the activity. 4-Supervision or Touching Assistance-helper provides verbal cues and/or touching/steadying and/or contact guard assistance as patient completes activity. Assistance may be provided throughout the activity or intermittently. 3-Partial/Moderate Assistance-helper does LESS THAN HALF the effort. [place] lifts, holds or supports trunk or limbs, but provides less than half the effort. 2-Substantial/Maximal Assistance-helper does MORE THAN HALF the effort. [place] lifts or holds trunk or limbs and provides more than half the effort. 8-Nomyyzmbk-juzjwu does ALL the effort. Patient does none of the effort to complete the activity. Or, the assistance of 2 or more helpers is required for the patient to complete the activity. If activity was not attempted, code reason: 7-Patient Refused. 9-Not Applicable-not attempted and the patient did not perform the activity before the current illness, exacerbation or injury. 10-Not Attempted due to Environmental Limitations-(lack of equipment, weather restraints, etc.). 88-Not Attempted due to Medical Conditions or Safety Concerns. On/Off Footwear: 1 Toileting Hygiene (QC): 1 Other Treatment Pt in bed, transferred supine to sit EOB (assist x2), then stood at FWW. assist x2 required in stand to wipe pt due to incontinent of BM, zinc ointment applied to red areas on pt's buttocks, nurse notified. Pt took a few side steps towards HOB, sat EOB, then transferred supine (assist x2). Post tx, pt in bed, call light in reach and all needs met. Education OT Patient Education: Correct positioning, Energy conservation, Modified ADL techniques, Progress toward Goal/Update tx plan, Purpose of tx/functional activities Teaching Recipient: Patient Teaching Methods: Discussion Response to Teaching: Verbalize Understanding OT Cabin Furnishings Installer Goals Cabin Furnishings Installer Goals Time Frame: September 22, 2021 Eating (QC): 5 Oral Hygiene (QC): 5 Toileting Hygiene (QC): 3 Upper Body Dressing (QC): 3 Additional Goals: 1-Demonstrate ADL Tasks, 2-Verbalize Understanding, 3- ImproveStrength/Giovanna 1=Demonstrate adherence to instructed precautions during ADL tasks. 2=Patient will verbalize/demonstrate understanding of assistive devices/modifications for ADL. 3=Patient will improve strength/tolerance for activity to enable patient to perform ADL's. OT Education/Plan Problem List/Assessment Assessment: Decreased Activ Tolerance, Decreased UE Strength, Dependent Transfers, Impaired Bed Mobility, Impaired Funct Balance, Impaired I ADL's, Impaired Self-Care Skills Discharge Recommendations Plan/Recommendations: Continue POC Treatment Plan/Plan of Care Patient would benefit from OT for education, treatment and training to promote independence in ADL's, mobility, safety and/or upper extremity function for ADL' s. Plan of Care: ADL Retraining, Functional Mobility, UE Funct Exercise/Act Treatment Duration: September 22, 2021 Frequency: 3 times per week (3-5 times per week) Estimated Hrs Per Day: .25 hour per day Rehab Potential: Guarded Time/GCodes Start Time: 09:17 Stop Time: 09:32 Total Time Billed (hr/min): 15 Billed Treatment Time VIOLET Hopkins ADDISON OT September 05, 2021 10:42
--- NOTE | 2021-09-05 10:43 | Physical Therapy Daily Note ---
PT Daily Note-Current Subjective Patient was in chair upon arrival. She stated that she had a new dressing put on her L leg with a thinner bandage. She stated that she did not sleep well last night and had a lot of pain in her shoulders from trying to adjust herself in bed. Patient also complains of LBP and L leg pain. Pain Numeric Pain Scale: 6 Location: Left Location Body Site: Foot Mental Status Patient Orientation: Person, Place, Situation Attachments: Oxygen Transfers SCALE: Activities may be completed with or without assistive devices. 1-Tzqapyzrjp-pfkefko completes the activity by him/herself with no assistance from a helper. 5-Set-up or Clean-up Assistance-helper sets up or cleans up; patient completes activity. Haskell assists only prior to or following the activity. 4-Supervision or Touching Assistance-helper provides verbal cues and/or touching/steadying and/or contact guard assistance as patient completes activity. Assistance may be provided throughout the activity or intermittently. 3-Partial/Moderate Assistance-helper does LESS THAN HALF the effort. Haskell lifts, holds or supports trunk or limbs, but provides less than half the effort. 2-Substantial/Maximal Assistance-helper does MORE THAN HALF the effort. Haskell lifts or holds trunk or limbs and provides more than half the effort. 5-Hpefggqru-vybhjp does ALL the effort. Patient does none of the effort to complete the activity. Or, the assistance of 2 or more helpers is required for the patient to complete the activity. If activity was not attempted, code reason: 7-Patient Refused. 9-Not Applicable-not attempted and the patient did not perform the activity before the current illness, exacerbation or injury. 10-Not Attempted due to Environmental Limitations-(lack of equipment, weather restraints, etc.). 88-Not Attempted due to Medical Conditions or Safety Concerns. Sit to Stand (QC): 3 Toilet Transfer (QC): 3 Weight Bearing Right Lower Extremity: Right Full Weight Bearing Left Lower Extremity: Left Full Weight Bearing Gait Training Does the Patient Walk?: Yes Distance: 40' Walk 10 feet (QC): 4 Gait Assistive Device: FWW Short and slow steps, heavy weight bearing through arms Wheelchair Training Does the Pt Use a Wheelchair?: Yes Wheel 50 ft with 2 turns (QC): 1 Doesn't like to wheel herself due to shoulder pain. Exercises Standing: Sit to Stand (Used elevated table.) Standing Reps: 18 NuStep Minutes: 15 NuStep Workload: 4 Treatments LE strengthening, ambulation, activity tolerance, transfers. Assessment Current Status: Fair Progress Patient has slightly improved her walking distance today, but did not want to continue walking due to LE pain and LBP. Patient still struggles with sit<-> stand transfers. She states she does not like help with it, and rocks herself back and forth to attempt to get herself up but still requires min assist. Patient can complete about 6 reps with an elevated sit to stand and then fatigues and needs to rest. She requires use of hands to help her for each rep. Patient was toileted at the end of session and was instructed to call nursing for help once completed. PT Intermediate Goals Supervisor Commissary Production Goals PT Supervisor Commissary Production Goals Time Frame: September 11, 2021 Roll Left & Right (QC): 3 Sit to Lying (QC): 3 Lying-Sitting on Side/Bed(QC): 3 Sit to Stand (QC): 3 Chair/Avn-rj-Ctnfb Xfer(QC): 3 PT Plan Problem List Problem List: Activity Tolerance, Functional Strength, Safety, Balance, Gait, Transfer, Bed Mobility, ROM Treatment/Plan Treatment Plan: Continue Plan of Care Treatment Plan: Bed Mobility, Education, Functional Activity Giovanna, Functional Strength, Gait, Safety, Therapeutic Exercise, Transfers Treatment Duration: September 11, 2021 Frequency: 6 times per week Estimated Hrs Per Day: .25 hour per day Patient and/or Family Agrees t: Yes Safety Risks/Education Patient Education: Gait Training, Transfer Techniques, Correct Positioning, Safety Issues Teaching Recipient: Patient Teaching Methods: Discussion Response to Teaching: Verbalize Understanding Time/GCodes Time In: 0945 Time Out: 1045 Total Billed Treatment Time: 60 Total Billed Treatment 1 visit GT 10min EX 30min FA 20min KRISTIE POSEY PT September 05, 2021 10:43
--- NOTE | 2021-09-05 10:58 | Physical Therapy Daily Note ---
PT Daily Note-Current Subjective Patient was in bed upon entering and consented to treat. Pt appeared more alert today. Mental Status Patient Orientation: Person, Place, Situation Attachments: Taylor Catheter Transfers SCALE: Activities may be completed with or without assistive devices. 8-Vfmfclssfw-habfjkc completes the activity by him/herself with no assistance from a helper. 5-Set-up or Clean-up Assistance-helper sets up or cleans up; patient completes activity. Tofte assists only prior to or following the activity. 4-Supervision or Touching Assistance-helper provides verbal cues and/or touching/steadying and/or contact guard assistance as patient completes activity. Assistance may be provided throughout the activity or intermittently. 3-Partial/Moderate Assistance-helper does LESS THAN HALF the effort. Tofte lifts, holds or supports trunk or limbs, but provides less than half the effort. 2-Substantial/Maximal Assistance-helper does MORE THAN HALF the effort. Tofte lifts or holds trunk or limbs and provides more than half the effort. 8-Lsbubcrba-vbhytb does ALL the effort. Patient does none of the effort to complete the activity. Or, the assistance of 2 or more helpers is required for the patient to complete the activity. If activity was not attempted, code reason: 7-Patient Refused. 9-Not Applicable-not attempted and the patient did not perform the activity before the current illness, exacerbation or injury. 10-Not Attempted due to Environmental Limitations-(lack of equipment, weather restraints, etc.). 88-Not Attempted due to Medical Conditions or Safety Concerns. Sit to Lying (QC): 1 Lying to Sitting/Side of Bed(Q: 1 Sit to Stand (QC): 1 required 2 person assist Weight Bearing Right Lower Extremity: Right Full Weight Bearing Left Lower Extremity: Left Full Weight Bearing Gait Training Does the Patient Walk?: Yes Distance: 3ft Gait Assistive Device: FWW Side stepping to the right. Very slow and short steps. Was unsteady and required mod assist. Exercises Standing: Mini squats Standing Reps: 5 Very shallow ROM with mini squats Treatments LE strengthening, standing tolerance (about 4min today. cleaned up a BM while standing). Transfers and bed mobility Assessment Current Status: Poor Progress Patient has improved his strength and balance since yesterday, as he was able to sit alone at EOB while holding on to hand rail, stand for longer periods of time and perform side stepping and mini-squats. Patient needs max assist with all transfers. Patient was left in bed with call light, tray, and all needs met. PT Easement Worker Goals Easement Worker Goals PT Senior Living Goals Time Frame: September 11, 2021 Roll Left & Right (QC): 3 Sit to Lying (QC): 3 Lying-Sitting on Side/Bed(QC): 3 Sit to Stand (QC): 3 Chair/Hmp-my-Aujgh Xfer(QC): 3 PT Plan Problem List Problem List: Activity Tolerance, Functional Strength, Safety, Balance, Gait, Bed Mobility, ROM Treatment/Plan Treatment Plan: Continue Plan of Care Treatment Plan: Bed Mobility, Education, Functional Activity Giovanna, Functional Strength, Gait, Safety, Therapeutic Exercise, Transfers Treatment Duration: September 11, 2021 Frequency: 6 times per week Estimated Hrs Per Day: .25 hour per day Patient and/or Family Agrees t: Yes Safety Risks/Education Patient Education: Gait Training, Transfer Techniques, Correct Positioning, Safety Issues Teaching Recipient: Patient Teaching Methods: Discussion Response to Teaching: Return Demonstration, Reinforcement Needed Time/GCodes Time In: 914 Time Out: 930 Total Billed Treatment Time: 16 Total Billed Treatment 1 visit FA 16min KRISTIE POSEY PT September 05, 2021 10:58
[2021-09-05] MEDS: VANCOMYCIN 1250 MG/NS 250 ML IVPB IV SCH ×4 (11:43→22:53)
[2021-09-05] MEDS: NS IV 1000 ML 1,000 ML IV SCH ×2 (11:43→18:31)
[2021-09-05] MEDS: ENOXAPARIN 40 MG/0.4 ML (LOVENOX) SYR SC SCH ×2 (11:43→22:53)
--- NOTE | 2021-09-05 17:41 | Physician Query Clarification ---
Physician Query-General Query to Physician: The medical record reflects the following clinical evidence: Clinical Indicators: Documentation on admission of a "state II pressure ulcer" with this comment opened Stage II within medial gluteal fold, right buttock side, found during cleansing from a BM. Risk Factor(s): Poor self care, confusion, BMI 46, weakness, unable to move by himself Treatment: Barrier ointment/Allyvn, Frequent assessments/cleansing, Nutritional assessments, Turn q 2, 1. Pressure ulcer of sacral region, stage 2, present on admission 2. Other explanation of clinical findings 3. Unable to determine (no explanation for clinical findings) Please clarify and document your clinical opinion in the progress notes and discharge summary including the definitive and/or presumptive diagnosis, (suspected or probable), related to the above clinical findings. Please include clinical findings supporting your diagnosis. Digna Suarez MSN, RN Clinical Well Puller Head [phone] [email or web address] PHYSICIAN RESPONSE: Based on the clinical findings in the record, please respond to the query above on this document as an addendum. Physician Response: Physician Response 1 If you have questions please contact: Levers Lace Machine Operator: Ext: Thank you for your time and cooperation. Clinical Well Puller Head/Levers Lace Machine Operator This is a permanent part of the medical record DIGNA SUAREZ September 05, 2021 17:41 MARLO HIGGINS DO September 05, 2021 18:49
--- NOTE | 2021-09-05 17:42 | Physician Query Clarification ---
Physician Query-General Query to Physician: The medical record reflects the following clinical scenario: The patient, in the setting of History/Risk factors, Wounds to legs and buttocks/gluteal fold, Cellulitis, poor self care/self neglect Clinical Findings Admission VS/Labs: : HR 101, RR 16, BP 135/91, SpO2 93% sat on room air T 38.1, WBC 15.1, lactic acid 2.16, Treatment In ER: NS 1 L, Tylenol p.o., ibuprofen p.o. Zosyn IV, vancomycin IV, Question: Do you agree with the impression of Sepsis, present on admission per Dr. Yordan Kent and Dr. Obie Dobbs? 1. Yes; will document Sepsis, present on admission in the Progress Notes 2. No; will continue current documentation in the Progress Notes 3. Other; will document explanation of clinical findings 4. Clinically undetermined; no explanation for clinical findings Please clarify and document your clinical opinion in the Progress Notes and Discharge Summary including the definitive and/or presumptive diagnosis, (suspected or probable), related to the above clinical findings. Please include clinical findings supporting your diagnosis. In responding to this query, please exercise your independent professional judgment. The purpose of this communication is to more accurately reflect the complexity of your patients condition. The fact that a question is asked does not imply that any particular answer is desired or expected. Please remember a lack of response to the above will prompt a phone page by CDI/coding staff Thank you for timely response to this clarification. Digna Gray MSN, RN Clinical Inbound Call Center Representative [phone] [email or web address] PHYSICIAN RESPONSE: Based on the clinical findings in the record, please respond to the query above on this document as an addendum. Physician Response: Physician Response yes If you have questions please contact: Hogshead Press Operator: Ext: Thank you for your time and cooperation. Clinical Inbound Call Center Representative/Hogshead Press Operator This is a permanent part of the medical record DIGNA GRAY September 05, 2021 17:42 MARLO HIGGINS DO September 05, 2021 18:50
--- NOTE | 2021-09-05 17:44 | Physician Query Clarification ---
Physician Query-General Query to Physician: The medical record reflects the following clinical evidence: Clinical Indicators: Labs/assessments from 09/03/2021: GCS 13, Na 132, currently documented as 14, Per Dr. Adiel Kent " Dementia, worsening of mental status, patient is disoriented to time and place, probably secondary to sepsis". Metabolic acidosis Risk Factor(s): infections, Dementia, "Acute on Chronic renal insufficiency" Treatment: Neurochecks, CT scan head, IV Fluids, IV abx, Lab monitoring, 1. Metabolic encephalopathy, present on day of admission, improving 2. Other explanation of clinical findings 3. Unable to determine (no explanation for clinical findings) Please clarify and document your clinical opinion in the progress notes and discharge summary including the definitive and/or presumptive diagnosis, (suspected or probable), related to the above clinical findings. Please include clinical findings supporting your diagnosis. Clinical Counterintelligence Specialist [phone] [email or web address] PHYSICIAN RESPONSE: Based on the clinical findings in the record, please respond to the query above on this document as an addendum. Physician Response: Physician Response 1 If you have questions please contact: Electronic Commerce Specialist: Ext: Thank you for your time and cooperation. Clinical Counterintelligence Specialist/Electronic Commerce Specialist This is a permanent part of the medical record RICARDO SUAREZ September 05, 2021 17:44 MARLO HIGGINS DO September 05, 2021 18:50
[2021-09-06] VITALS (7 sets, daily range): BP systolic 153–188; BP diastolic 81–93
[2021-09-06 05:30] LABS: BASOPHILS # (AUTO) 0.1 10^3/uL (0.0-0.1); BASOPHILS % (AUTO) 1 % (0-10); EOSINOPHILS # (AUTO) 0.5 10^3/uL (0.0-0.3); EOSINOPHILS % (AUTO) 6 % (0-10); HEMATOCRIT 35 % (40-54); HEMOGLOBIN 11.1 g/dL (13.3-17.7); LYMPHOCYTES # (AUTO) 1.8 10^3/uL (1.0-4.0); LYMPHOCYTES % (AUTO) 20 % (12-44); MEAN CORPUSCULAR HEMOGLOBIN 28 pg (25-34); MEAN CORPUSCULAR HGB CONC 32 g/dL (32-36); MEAN CORPUSCULAR VOLUME 88 fL (80-99); MEAN PLATELET VOLUME 8.7 fL (9.0-12.2); MONOCYTES # (AUTO) 0.7 10^3/uL (0.0-1.0); MONOCYTES % (AUTO) 8 % (0-12); NEUTROPHILS # (AUTO) 5.7 10^3/uL (1.8-7.8); NEUTROPHILS % (AUTO) 65 % (42-75); PLATELET COUNT 415 10^3/uL (130-400); WHITE BLOOD COUNT 8.8 10^3/uL (4.3-11.0)
[2021-09-06] MEDS: PIPERACILLIN SODIUM/TAZOBACTAM 4.5 GM in NS (IVPB) 100 ML IV SCH ×3 (05:39→22:37)
[2021-09-06 05:44] LABS: ALBUMIN 2.7 GM/DL (3.2-4.5); POTASSIUM 4.5 MMOL/L (3.6-5.0)
[2021-09-06 05:45] LABS: CALCIUM 8.2 MG/DL (8.5-10.1)
[2021-09-06 05:46] LABS: TOTAL PROTEIN 5.8 GM/DL (6.4-8.2)
[2021-09-06 05:48] LABS: BILIRUBIN,TOTAL 0.7 MG/DL (0.1-1.0)
[2021-09-06 05:50] LABS: CREATININE SERUM 1.05 MG/DL (0.60-1.30)
--- NOTE | 2021-09-06 05:53 | Progress Note - Hospitalist ---
Subjective HPI/CC On Admission Date Seen by Provider: September 06, 2021 Time Seen by Provider: 09:30 Chief complaint: Bilateral lower extremity cellulitis History of present illness: This is an 81-year-old male of [facility] who resides in a camper with his who has a past medical history of chronic lower extremity lymphedema who presented to the ER with weakness and fever found to have bilateral lower extremity cellulitis on chronic lymphedema condition. Patient appears to have multiple wounds and wound care will be consulted. The son and his are at the bedside and are requesting DPOA papers to be signed and placement. Subjective/Events-last exam Pt is doing about the same Wheezing is noted Very immobile in movement 9 family members in the room today Swallow study at 1100 He is very hungry half-way placement discussed and he agrees Review of Systems General: Fatigue, Malaise Focused Exam Lactate Level Time of Focused Exam: 929 Objective Exam Vital Signs Vital Signs Date Time Temp Pulse Resp B/P (MAP) Pulse Ox O2 Delivery O2 Flow Rate FiO2 09/07/21 04:02 36.7 88 20 186/86 (119) 93 Room Air 09/06/21 21:12 21 09/05/21 08:46 2.00 Capillary Refill : Less Than 3 Seconds General Appearance: No Apparent Distress, WD/WN, Chronically ill, Obese Respiratory: No Accessory Muscle Use, No Respiratory Distress, Wheezing Cardiovascular: Regular Rate, Rhythm Neurologic/Psychiatric: Alert, Oriented x3, Depressed Affect Results/Procedures Lab Laboratory Tests 09/06/21 05:10 Patient resulted labs reviewed. Assessment/Plan Assessment and Plan Assess & Plan/Chief Complaint Assessment: Bilateral lower extremity cellulitis Chronic lymphedema History of prostate cancer Poor living conditions Dysphagia aspiration risk modified barium swallow today Plan: DPOA papers Supportive care IV antibiotic Needs placement 09/04/2021: Supportive care IV antibiotics Lasix 40 Mg IV x1 Echo Speech therapy eval due to dysphagia and aspiration risk Add BNP to labs Cardiology consult 09/05/21: Supportive care Speech therapy Antibiotics 09/06/2021: Needs longterm placement Modified barium swallow today Diagnosis/Problems Diagnosis/Problems (1) Bilateral lower leg cellulitis Status: Acute (2) Generalized weakness Status: Acute (3) Decubitus ulcers Status: Acute (4) Acute renal insufficiency Status: Acute (5) Obesity Status: Acute (6) Venous stasis ulcers of both lower extremities Status: Acute (7) Urinary incontinence Status: Acute Clinical Quality Measures DVT/VTE Risk/Contraindication: Contraindications-Mechi: Other *list below* Other: leg cellulitis b/l MARLO HIGGINS DO September 06, 2021 05:53
[2021-09-06] MEDS ORDERED: NITROGLYCERIN 2% OINT 1 GM UNIT DOSE PACKET TOP PRN (06:00)
[2021-09-06] MEDS: hydrALAZINE (APESOLINE) 20 MG/ML VIAL IV SCH ×6 (06:14→23:52)
[2021-09-06] MEDS: cloNIDine 0.1 MG (CATAPRES) TAB PO SCH ×2 (07:52→20:09)
[2021-09-06] MEDS: DOCUSATE SODIUM 100 MG (COLACE) CAP PO SCH ×2 (07:53→20:09)
[2021-09-06] MEDS: SENNOSIDES 8.6 MG (SENOKOT) TAB PO SCH ×2 (07:53→20:10)
[2021-09-06] MEDS: FLUCONAZOLE 100 MG/50 ML 50 ML IV SCH (08:35)
[2021-09-06] MEDS: MICONAZOLE 2% POWDER (DESENEX AF) 90 GM TOP SCH ×2 (08:36→20:10)
[2021-09-06] MEDS ORDERED: BETH50TA2 PO (08:48)
[2021-09-06] MEDS ORDERED: DOXA2TAB2 PO (08:48)
[2021-09-06] MEDS ORDERED: FURO20TA4 PO (08:48)
[2021-09-06] MEDS: VANCOMYCIN 1250 MG/NS 250 ML IVPB IV SCH ×4 (09:43→22:37)
--- NOTE | 2021-09-06 09:55 | Cardiology Progress Note ---
Subjective Date Seen by Provider: September 06, 2021 Time Seen by Provider: 08:25 Subjective/Events-last exam Patient is in bed, denies any chest pain Focused Exam Lactate Level Time of Focused Exam: 929 Objective-Cardiology Exam Last Set of Vital Signs Vital Signs 09/05/21 09/06/21 08:46 11:53 Temp 36.7 Pulse 84 Resp 22 B/P (MAP) 165/81 (109) Pulse Ox 95 O2 Delivery Room Air O2 Flow Rate 2.00 I&O Intake and Output 09/06/21 00:00 Intake Total 0 ml Output Total 2100 ml Balance -2100 ml Intake Oral 0 ml Output Urine Total 2100 ml General: Alert, Cooperative HEENT: Atraumatic Neck: Supple Lungs: Normal Air Movement, Other (Bilateral wheezing) Heart: Normal S1, Normal S2, Other (Lymphedema) Abdomen: Normal Bowel Sounds Extremities: No Clubbing, Other (Lymphedema with blisters and cellulitis on the lower extremities) Skin: Other (Blisters on the lower extremities) Neuro: Normal Speech Psych/Mental Status: Mood NL Results Lab Laboratory Tests 09/06/21 05:10 A/P-Cardiology Admission Diagnosis Sepsis Cellulitis Hypertension Dementia Assessment/Plan Sepsis, cellulitis of bilateral lower extremities, started on Diflucan IV, vancomycin IV and Zosyn IV, managed by primary care physician Lymphedema, chronic pedal edema. Poor hygiene. Not maintained on diuretics Hypertension, history of hypertensive urgency in 2019. Patient does not take any medication, continue to monitor blood pressure. 2D echocardiogram was done on September 04, 2021, poor window, normal LV size and function, ejection fraction 55%. Unable to evaluate pulmonary artery pressure Dementia, worsening of mental status, patient is disoriented to time and place, probably secondary to sepsis. Metabolic acidosis. Better at this time. Continue to monitor Acute on chronic renal insufficiency, improving, continue to monitor renal function Supervisory-Addendum Brief Supervisory Addendum Participated in pt care: history, MDM, physical Personally performed: exam, history, MDM Care discussed with: SAGAR Results interpretation: Verified all documentation Notes: Patient was seen and evaluated with Merrill, examination performed, management plan was discussed, agree with the current scribed note, I made few changes to the note using Italic font Patient was seen at bedside, laying down comfortably Feeling better Visited with his family, continue with current treatment, continue with local treatment and antibiotic and monitor tolerance and response MERRILL GARCIA September 06, 2021 09:55 TERESA FINK MD September 06, 2021 13:22
[2021-09-06] MEDS: HYPOCHLOROUS ACID/NaCl (VASHE) 250 ML IR SCH ×2 (11:15→20:10)
[2021-09-06] MEDS: ENOXAPARIN 40 MG/0.4 ML (LOVENOX) SYR SC SCH ×2 (12:09→22:36)
--- NOTE | 2021-09-06 12:09 | ST Mod Barium Swallow ---
Speech Evaluation-General Medical Diagnosis Bilateral LE Cellulitis Onset Date: September 03, 2021 Therapy Diagnosis Therapy Diagnosis: Oropharyngeal Dysphagia Precautions Precautions: Fall, Aspiration Precautions/Isolations: Aspiration, Fall Prevention, Standard Precautions Referral Referring Physician: Dr. Guthrie Reason for Referral: Evaluation/Treatment Medical History Pertinent Medical History: HTN Current History The patient is an 81 year-old male with a history of chronic lymphedema, who presented to [facility] with weakness and fever. The patient was found to have bilateral lower extremity cellulitis. 09/04/21: CXR: Cardiomegaly and central congestion. Reviewed History: Yes Social History Current Living Status: Spouse Speech Mod Barium Swallow Prior Level of Function The patient consumed a regular consistency diet with thin liquids prior to admission. Due to the patient's reduced alertness level and consistent s/s of suspected aspiration with P.O. intake, a modified barium swallow was recommended to provide additional investigation into the safety of the patient's oropharyngeal swallow function. At this time, the patient is NPO. The patient demonstrated increased alertness level on this date in comparison to the prior treatment sessions. The patient continues to demonstrate a productive throat clear at baseline. Oral Motor Skills Dentition Natural Dentures: Full (The patient has full dentures present in his room, however, did not wear the dentures for his modified barium swallow evaluation.) Lingual Protrusion: Normal Lingual ROM: Normal Lingual Strength: Normal Volitional Dry Swallow: No Voluntary Cough: Yes Can Clear Throat Volitionally: Yes Textures-Lateral View Lateral View Food Presentation: Thin Liquid via Straw, Pureed Solids, Regular Solids Oral Phase Labial Closure: No Impairment (WFL) Bolus Formation Pooling L/R: Moderate Impairment Bolus Formation Placement: Moderate Impairment Mastication Rotary Chew: Moderate Impairment A/P Lingual Propulsion: Moderate Impairment Lingual Movement: Moderate Impairment Oral Phase Residue: Mild Impairment The patient demonstrated a moderate oral phase impairment. Moderate pooling of bolus material was visualized in the bilateral buccal spaces, with poor bolus formation overall. Oral holding behaviors were present which required verbal prompting from the clinician to elicit posterior transfer. Lingual pumping was present to aid the bolus to the posterior oral cavity. Marked premature spillage was present to the level of the pyriform sinuses. Prolonged mastication was present with the solid bolus. Pharyngeal Phase Swallow Response: Moderate Impairment Base of Tongue: Moderate Impairment Epiglottic Movement: No Impairment (WFL) Laryngeal Elevation: Mild Impairment Vallecular Residue: Moderate Pharyngeal Wall Residue: Mild Piriform Sinus Residue: Moderate Laryngeal Penetration: Mild (Thin liquid, one occasion, trace transient.) Aspiration Observations: None The patient demonstrated moderate pharyngeal dysphagia. A moderate to severe delay in the pharyngeal swallow was present, as bolus material spilled and pooled into the pyriform sinuses. Mildly decreased laryngeal elevation and hyo- laryngeal excursion were present. Complete epiglottic inversion was appreciated. One episode of trace, transient laryngeal penetration occurred with the initial bolus of thin liquid during the swallow. No additional laryngeal penetration was present and no aspiration was appreciated. Moderately decreased base of tongue retractions and pharyngeal contractions. Appropriate and timely clearance was present of bolus material through the cricopharyngeal space. Summary/Impressions The patient demonstrated moderate oropharyngeal dysphagia characterized by decreased lingual and oral coordination, a delayed onset to the pharyngeal swallow, decreased laryngeal elevation, reduced hyo-laryngeal excursion, decreased base of tongue retraction, and reduced pharyngeal contractions. One episode of trace, transient laryngeal penetration was present with thin liquids during the swallow. No aspiration was appreciated with any consistency tested. Recommendations: - Dysphagia two consistency diet with thin liquids, as tolerated. - Fully upright and alert for P.O. intake. - Full feeding assistance and supervision via staff. The patient frequently orally hold P.O. bolus consistency and requires verbal prompts to elicit a pharyngeal swallow response. - Small bites and sips, only. - Monitor for s/s of suspected aspiration with P.O. intake. If demonstrated, contact speech pathology. The results and recommendations were discussed with the patient, the patient's family member, the RN, and written on the in-room white board. The patient's oral holding behaviors do place the patient at an elevated risk for aspiration with P.O. intake, therefore, staff supervision should be utilized for patient safety. The patient verbalized comprehension of the material and denied questions or concerns for the clinician at this time. Speech Short Term Goals Short Term Goals Short Term Goals 1. The patient will tolerate trials of the least restrictive consistency without s/s of suspected aspiration. Time Frame-STG: Three Days. Speech Commissary Superintendent Goals Half-Way Goals 1. The patient will tolerate the least restrictive diet without s/s of suspected aspiration. Time Frame: One Week. Speech-Plan Treatment Plan Speech Therapy Treatment Plan: Continue Plan of Care Treatment Duration: September 11, 2021 Frequency: 2 times per week Estimated Hrs Per Day: .25 hour per day Rehab Potential: Guarded Pt/Family Agrees to Plan: Yes Safety Risks/Education Teaching Recipient: Patient, Family Teaching Methods: Discussion Response to Teaching: Reinforcement Needed Education Topics Provided: Results, Recommendations Time Speech Therapy Time In: 11:21 Speech Therapy Time Out: 12:00 Total Billed Time: 39 Billed Treatment Time 1, MOD, DYST No FADY MCCANN September 06, 2021 12:09
--- NOTE | 2021-09-06 12:40 | Diagnostic Imaging Report ---
INDICATION: Dysphagia. TECHNIQUE: The procedure was performed in conjunction with Speech Pathology. Video fluoroscopy was performed during the swallowing of barium in multiple consistencies. A total of 98 seconds of fluoroscopic time was utilized. FINDINGS: The patient ingested thin liquid as well as applesauce and cracker consistencies. There is somewhat of a delay in the oral phase. Moderate early spillover is noted with the thin liquid and applesauce consistencies. There is a moderate amount of vallecular and pyriform sinus residue. There is normal epiglottic tilt. There was a single episode of flash penetration during the swallowing of thin liquid. No aspiration was observed. No other episodes of penetration were observed. IMPRESSION: Early spillover with vallecular and pyriform sinus pooling and residue which did clear during the swallowing of applesauce and cracker consistencies. There was a single episode of flash penetration with thin barium. No aspiration was observed. Dictated by: Dictated on workstation # [id number]
--- NOTE | 2021-09-06 13:18 | Occupational Ther Daily Note ---
OT Current Status-Daily Note Subjective Pt alert, lying in bed. GRADUATE ASSISTANT ATHLETIC TRAINER and radiology in room to take pt to/from modified barium swallow. Mental Status/Objective Patient Orientation: Person, Place, Time, Situation Attachments: Taylor Catheter, IV ADL-Treatment Therapy Code Descriptions/Definitions Functional [place] Measure: 0=Not Assessed/NA 4=Minimal Assistance 1=Total Assistance 5=Supervision or Setup 2=Maximal Assistance 6=Modified [place] 3=Moderate Assistance 7=Complete IndependenceSCALE: Activities may be completed with or without assistive devices. 6-Nvoqbdbprz-zpzmhci completes the activity by him/herself with no assistance from a helper. 5-Set-up or Clean-up Assistance-helper sets up or cleans up; patient completes activity. [place] assists only prior to or following the activity. 4-Supervision or Touching Assistance-helper provides verbal cues and/or touching/steadying and/or contact guard assistance as patient completes activity. Assistance may be provided throughout the activity or intermittently. 3-Partial/Moderate Assistance-helper does LESS THAN HALF the effort. [place] lifts, holds or supports trunk or limbs, but provides less than half the effort. 2-Substantial/Maximal Assistance-helper does MORE THAN HALF the effort. [place] lifts or holds trunk or limbs and provides more than half the effort. 8-Tzejmwbns-xnqrnq does ALL the effort. Patient does none of the effort to complete the activity. Or, the assistance of 2 or more helpers is required for the patient to complete the activity. If activity was not attempted, code reason: 7-Patient Refused. 9-Not Applicable-not attempted and the patient did not perform the activity before the current illness, exacerbation or injury. 10-Not Attempted due to Environmental Limitations-(lack of equipment, weather restraints, etc.). 88-Not Attempted due to Medical Conditions or Safety Concerns. Other Treatment Assist x2-3 supine<-->EOB. Sat EOB independently. Assist x2-3 for sit to stand then to SPT from surface to surface. Pt requires increased surface height for transfers. Assist x2 to side step up to HOB using FWW. After therapy, pt lying in bed with call light/phone in reach. All needs met in room. OT Sergeant At Arms Goals Sergeant At Arms Goals Time Frame: September 22, 2021 Eating (QC): 5 Oral Hygiene (QC): 5 Toileting Hygiene (QC): 3 Upper Body Dressing (QC): 3 Additional Goals: 1-Demonstrate ADL Tasks, 2-Verbalize Understanding, 3- ImproveStrength/Giovanna 1=Demonstrate adherence to instructed precautions during ADL tasks. 2=Patient will verbalize/demonstrate understanding of assistive devices/modifications for ADL. 3=Patient will improve strength/tolerance for activity to enable patient to perform ADL's. OT Education/Plan Problem List/Assessment Assessment: Decreased Activ Tolerance, Decreased UE Strength, Dependent Transfers, Edema, Impaired Bed Mobility, Impaired Funct Balance, Impaired Self- Care Skills Discharge Recommendations Plan/Recommendations: Continue POC Treatment Plan/Plan of Care Patient would benefit from OT for education, treatment and training to promote independence in ADL's, mobility, safety and/or upper extremity function for ADL's. Plan of Care: ADL Retraining, Functional Mobility, UE Funct Exercise/Act Treatment Duration: September 22, 2021 Frequency: 3 times per week (3-5 times per week) Estimated Hrs Per Day: .25 hour per day Rehab Potential: Guarded Time/GCodes Start Time: 11:45 Stop Time: 12:10 Total Time Billed (hr/min): 25 Billed Treatment Time 1 visit-FA 2 (25 min) STEFANO MONROE September 06, 2021 13:18
--- NOTE | 2021-09-06 15:02 | Physical Therapy Daily Note ---
PT Daily Note-Current Subjective Patient was in bed upon entry, and compliant to PT. Patient stated that he had R leg pain especially during activity, but no rating was verbalized. Mental Status Patient Orientation: Person, Confused, Place Attachments: IV Transfers SCALE: Activities may be completed with or without assistive devices. 5-Ugktuuswwy-fmtadey completes the activity by him/herself with no assistance from a helper. 5-Set-up or Clean-up Assistance-helper sets up or cleans up; patient completes activity. [place] assists only prior to or following the activity. 4-Supervision or Touching Assistance-helper provides verbal cues and/or touching/steadying and/or contact guard assistance as patient completes activity. Assistance may be provided throughout the activity or intermittently. 3-Partial/Moderate Assistance-helper does LESS THAN HALF the effort. [place] lifts, holds or supports trunk or limbs, but provides less than half the effort. 2-Substantial/Maximal Assistance-helper does MORE THAN HALF the effort. [place] lifts or holds trunk or limbs and provides more than half the effort. 3-Flmmelqar-egdhlk does ALL the effort. Patient does none of the effort to complete the activity. Or, the assistance of 2 or more helpers is required for the patient to complete the activity. If activity was not attempted, code reason: 7-Patient Refused. 9-Not Applicable-not attempted and the patient did not perform the activity before the current illness, exacerbation or injury. 10-Not Attempted due to Environmental Limitations-(lack of equipment, weather restraints, etc.). 88-Not Attempted due to Medical Conditions or Safety Concerns. Roll Left & Right (QC): 1 Sit to Lying (QC): 1 Lying to Sitting/Side of Bed(Q: 1 Sit to Stand (QC): 1 Weight Bearing Right Lower Extremity: Right Full Weight Bearing Left Lower Extremity: Left Full Weight Bearing Gait Training Does the Patient Walk?: Yes Distance: 3ft Patient side stepped to the right at side of bed. Very slow unbalanced steps needing max assist. Used home walking device for stability. Treatments bed mobility, transfers, side stepping, standing tolerance. Patient stood about 2 minutes while PT cleaned a bowel movement and provided new sheets. Assessment Current Status: Poor Progress Patient strength remianed unchanged since yesterday. Patient needs max assist of multiple people to sit on side of bed, but can remain sitting independently with arms for support for a brief period. Patient needed max assist for standing and side-stepping. A bowel movement was cleaned by PT and new sheets were given to patient. Patients stool still presented as bloody and mucous like. Patient was left in bed with call light, tray, and all needs met. PT Halfway Goals Painter Spray Goals PT Halfway Goals Time Frame: September 11, 2021 Roll Left & Right (QC): 3 Sit to Lying (QC): 3 Lying-Sitting on Side/Bed(QC): 3 Sit to Stand (QC): 3 Chair/Hpm-sv-Qzmur Xfer(QC): 3 PT Plan Problem List Problem List: Activity Tolerance, Functional Strength, Safety, Balance, Gait, Transfer, Bed Mobility, ROM Treatment/Plan Treatment Plan: Continue Plan of Care Treatment Plan: Bed Mobility, Education, Functional Activity Giovanna, Functional Strength, Gait, Safety, Therapeutic Exercise, Transfers Treatment Duration: September 11, 2021 Frequency: 6 times per week Estimated Hrs Per Day: .25 hour per day Patient and/or Family Agrees t: Yes Safety Risks/Education Patient Education: Gait Training, Transfer Techniques, Correct Positioning, Safety Issues Teaching Recipient: Patient Teaching Methods: Discussion Response to Teaching: Verbalize Understanding, Reinforcement Needed Time/GCodes Time In: 1430 Time Out: 1441 Total Billed Treatment Time: 11 Total Billed Treatment 1 visit FA 11min KRISTIE POSEY PT September 06, 2021 15:02
[2021-09-06] MEDS: NS IV 1000 ML 1,000 ML IV SCH (20:16)
[2021-09-06] MEDS: RT-ALBUTEROL SULF 2.5 MG/3 ML PRE-MIX VIAL INH PRN (21:15)
[2021-09-07 04:02] VITALS: BP 186/86
[2021-09-07] MEDS: hydrALAZINE (APESOLINE) 20 MG/ML VIAL IV SCH ×5 (04:02→21:20)
--- NOTE | 2021-09-07 05:57 | Progress Note - Hospitalist ---
Subjective HPI/CC On Admission Date Seen by Provider: September 07, 2021 Time Seen by Provider: 11:00 Chief complaint: Bilateral lower extremity cellulitis History of present illness: This is an 81-year-old male of [facility] who resides in a camper with his who has a past medical history of chronic l ower extremity lymphedema who presented to the ER with weakness and fever found to have bilateral lower extremity cellulitis on chronic lymphedema condition. Patient appears to have multiple wounds and wound care will be consulted. The son and his are at the bedside and are requesting DPOA papers to be signed and placement. Subjective/Events-last exam Pt is doing about the same ABG was checked showing hypoxemia Wheezing was noted so gave IV Lasix and hep locked IV fluid Overall legs improved but has a very poor prognosis due to sedentary and immobile state Review of Systems General: Fatigue Pulmonary: Dyspnea Musculoskeletal: leg pain Focused Exam Time of Focused Exam: 929 Objective Exam Vital Signs Vital Signs Date Time Temp Pulse Resp B/P (MAP) Pulse Ox O2 Delivery O2 Flow Rate FiO2 09/08/21 04:02 36.6 89 20 151/67 (95) 93 Room Air 09/07/21 11:38 0.00 09/06/21 21:12 21 Capillary Refill : Less Than 3 Seconds General Appearance: No Apparent Distress, WD/WN, Chronically ill, Obese Respiratory: Decreased Breath Sounds, Wheezing Cardiovascular: Regular Rate, Rhythm Neurologic/Psychiatric: Alert, Oriented x3, Depressed Affect Results/Procedures Lab Patient resulted labs reviewed. Assessment/Plan Assessment and Plan Assess & Plan/Chief Complaint Assessment: Bilateral lower extremity cellulitis Chronic lymphedema History of prostate cancer Poor living conditions Dysphagia aspiration risk modified diet ordered s/p MBS Plan: DPOA papers Supportive care IV antibiotic Needs placement 09/04/2021: Supportive care IV antibiotics Lasix 40 Mg IV x1 Echo Speech therapy eval due to dysphagia and aspiration risk Add BNP to labs Cardiology consult 09/05/21: Supportive care Speech therapy Antibiotics 09/06/2021: Needs mcc placement Modified barium swallow today 09/07/2021: Check ABG Continue oxygen Continue antibiotics Discharge to [facility] [place] tomorrow Diagnosis/Problems Diagnosis/Problems (1) Bilateral lower leg cellulitis Status: Acute (2) Generalized weakness Status: Acute (3) Decubitus ulcers Status: Acute (4) Acute renal insufficiency Status: Acute (5) Obesity Status: Acute (6) Venous stasis ulcers of both lower extremities Status: Acute (7) Urinary incontinence Status: Acute Clinical Quality Measures DVT/VTE Risk/Contraindication: Contraindications-Mechi: Other *list below* Other: leg cellulitis b/l MARLO HIGGINS DO September 07, 2021 05:57
[2021-09-07 06:10] LABS: BASOPHILS # (AUTO) 0.1 10^3/uL (0.0-0.1); BASOPHILS % (AUTO) 1 % (0-10); EOSINOPHILS # (AUTO) 0.4 10^3/uL (0.0-0.3); EOSINOPHILS % (AUTO) 5 % (0-10); HEMATOCRIT 37 % (40-54); LYMPHOCYTES # (AUTO) 1.4 10^3/uL (1.0-4.0); LYMPHOCYTES % (AUTO) 17 % (12-44); MEAN CORPUSCULAR HEMOGLOBIN 28 pg (25-34); MEAN CORPUSCULAR HGB CONC 33 g/dL (32-36); MEAN CORPUSCULAR VOLUME 87 fL (80-99); MEAN PLATELET VOLUME 8.9 fL (9.0-12.2); MONOCYTES # (AUTO) 0.7 10^3/uL (0.0-1.0); MONOCYTES % (AUTO) 8 % (0-12); NEUTROPHILS # (AUTO) 5.7 10^3/uL (1.8-7.8); NEUTROPHILS % (AUTO) 69 % (42-75); PLATELET COUNT 432 10^3/uL (130-400); WHITE BLOOD COUNT 8.2 10^3/uL (4.3-11.0)
[2021-09-07] MEDS: PIPERACILLIN SODIUM/TAZOBACTAM 4.5 GM in NS (IVPB) 100 ML IV SCH ×3 (06:15→23:01)
[2021-09-07 06:18] VITALS: BP 173/76
[2021-09-07 06:26] LABS: ALBUMIN 2.9 GM/DL (3.2-4.5); POTASSIUM 4.2 MMOL/L (3.6-5.0)
[2021-09-07 06:27] LABS: CALCIUM 8.5 MG/DL (8.5-10.1)
[2021-09-07 06:28] LABS: TOTAL PROTEIN 6.2 GM/DL (6.4-8.2)
[2021-09-07 06:30] LABS: BILIRUBIN,TOTAL 0.6 MG/DL (0.1-1.0)
[2021-09-07 06:32] LABS: CREATININE SERUM 0.99 MG/DL (0.60-1.30)
--- NOTE | 2021-09-07 07:28 | Cardiology Progress Note ---
Subjective Date Seen by Provider: September 07, 2021 Time Seen by Provider: 07:28 Subjective/Events-last exam Patient is laying down in bed, no new complaint Legs appear slightly better today. Review of Systems General: No Chills, No Night Sweats; Fatigue, Malaise; No Appetite, No Other HEENT: No Head Aches, No Visual Changes, No Eye Pain, No Ear Pain, No Dysphasia, No Sinus Congestion, No Post Nasal Drip, No Sore Throat, No Other Pulmonary: No Dyspnea, No Cough, No Pleuritic Chest Pain, No Other Cardiovascular: Edema; No: Chest Pain, Palpitations, Orthopnea, Paroxysmal Noc. Dyspnea, Lt Headedness, Other Focused Exam Time of Focused Exam: 929 Objective-Cardiology Exam Last Set of Vital Signs Vital Signs 09/05/21 09/06/21 09/07/21 09/07/21 08:46 21:12 04:02 06:18 Temp 36.7 Pulse 88 Resp 20 B/P (MAP) 173/76 (108) Pulse Ox 93 O2 Delivery Room Air O2 Flow Rate 2.00 FiO2 21 I&O Intake and Output 09/07/21 00:00 Intake Total 3355.0 ml Output Total 5550 ml Balance -2195.0 ml Intake Oral 1730 ml IV Total 1625.0 ml Output Urine Total 5550 ml General: Alert, Cooperative HEENT: Atraumatic Neck: Supple Lungs: Normal Air Movement, Other (Bilateral wheezing) Heart: Normal S1, Normal S2, Other (Lymphedema) Abdomen: Normal Bowel Sounds Extremities: No Clubbing, Other (Lymphedema with blisters and cellulitis on the lower extremities) Skin: Other (Blisters on the lower extremities) Neuro: Normal Speech Psych/Mental Status: Mood NL Results Lab Laboratory Tests 09/07/21 05:50 A/P-Cardiology Admission Diagnosis Sepsis Cellulitis Hypertension Dementia Assessment/Plan Sepsis, cellulitis of bilateral lower extremities, started on Diflucan IV, vancomycin IV and Zosyn IV, managed by primary care physician Lymphedema, chronic pedal edema. Poor hygiene. Not maintained on diuretics Hypertension, history of hypertensive urgency in 2019. Patient does not take any medication, continue to monitor blood pressure. 2D echocardiogram was done on September 04, 2021, poor window, normal LV size and function, ejection fraction 55%. Unable to evaluate pulmonary artery pressure Dementia, worsening of mental status, patient is disoriented to time and place, probably secondary to sepsis. Metabolic acidosis. Better at this time. Continue to monitor Acute on chronic renal insufficiency, improving, continue to monitor renal function TERESA FINK MD September 07, 2021 07:28
[2021-09-07 07:58] VITALS: BP 172/82
[2021-09-07] MEDS: HYPOCHLOROUS ACID/NaCl (VASHE) 250 ML IR SCH ×2 (09:46→21:27)
[2021-09-07] MEDS: FLUCONAZOLE 100 MG/50 ML 50 ML IV SCH (09:46)
[2021-09-07] MEDS: cloNIDine 0.1 MG (CATAPRES) TAB PO SCH ×2 (09:47→21:21)
[2021-09-07] MEDS: DOCUSATE SODIUM 100 MG (COLACE) CAP PO SCH ×2 (09:47→21:21)
[2021-09-07] MEDS: SENNOSIDES 8.6 MG (SENOKOT) TAB PO SCH ×2 (09:47→21:21)
[2021-09-07] MEDS: MICONAZOLE 2% POWDER (DESENEX AF) 90 GM TOP SCH ×2 (09:48→21:21)
[2021-09-07] MEDS: LOSARTAN 50 MG (COZAAR) TAB PO SCH (09:50)
--- NOTE | 2021-09-07 09:55 | Physical Therapy Daily Note ---
PT Daily Note-Current Subjective Patient was asleep with family in room upon entering. patient was awakened easily, and agreeable to treatment. Patient seemed to have slightly increased verbal communication. Pain Numeric Pain Scale: 0-No Pain Mental Status Patient Orientation: Person, Confused, Place Attachments: Taylor Catheter, IV Transfers SCALE: Activities may be completed with or without assistive devices. 6-Lcwvsdyyzb-kocgedx completes the activity by him/herself with no assistance from a helper. 5-Set-up or Clean-up Assistance-helper sets up or cleans up; patient completes activity. [place] assists only prior to or following the activity. 4-Supervision or Touching Assistance-helper provides verbal cues and/or touching/steadying and/or contact guard assistance as patient completes activity. Assistance may be provided throughout the activity or intermittently. 3-Partial/Moderate Assistance-helper does LESS THAN HALF the effort. [place] lifts, holds or supports trunk or limbs, but provides less than half the effort. 2-Substantial/Maximal Assistance-helper does MORE THAN HALF the effort. [place] lifts or holds trunk or limbs and provides more than half the effort. 5-Iyugejxdx-cuwjcj does ALL the effort. Patient does none of the effort to complete the activity. Or, the assistance of 2 or more helpers is required for the patient to complete the activity. If activity was not attempted, code reason: 7-Patient Refused. 9-Not Applicable-not attempted and the patient did not perform the activity before the current illness, exacerbation or injury. 10-Not Attempted due to Environmental Limitations-(lack of equipment, weather restraints, etc.). 88-Not Attempted due to Medical Conditions or Safety Concerns. Roll Left & Right (QC): 2 Sit to Lying (QC): 1 Lying to Sitting/Side of Bed(Q: 1 Sit to Stand (QC): 3 mod assist with sit to stand with elevated bed height. Weight Bearing Right Lower Extremity: Right Full Weight Bearing Left Lower Extremity: Left Full Weight Bearing Gait Training Does the Patient Walk?: Yes Distance: 2' x 4. 3ft Patient was min assist with home walking device. Patient was able to take a few steps forward and back, and to the right side. Patients steps are very small, and needs help moving walker especially with sidestepping. Patient still very weak, so stayed close to bed for safety. Treatments Ambulation, transfers Assessment Current Status: Poor Progress Patient seems to be slightly improving. Slight improvement with sit to stand transfers and ambulation are seen. Bed mobility is still max assist. Patient was left in bed with call light, tray, and all needs met. PT Chcf Goals Print Shop Chief Clerk Goals PT Print Shop Chief Clerk Goals Time Frame: September 11, 2021 Roll Left & Right (QC): 3 Sit to Lying (QC): 3 Lying-Sitting on Side/Bed(QC): 3 Sit to Stand (QC): 3 Chair/Noy-mr-Lndwm Xfer(QC): 3 PT Plan Problem List Problem List: Activity Tolerance, Functional Strength, Safety, Balance, Gait, Transfer, Bed Mobility, ROM Treatment/Plan Treatment Plan: Continue Plan of Care Treatment Plan: Bed Mobility, Education, Functional Activity Giovanna, Functional Strength, Gait, Safety, Therapeutic Exercise, Transfers Treatment Duration: September 11, 2021 Frequency: 6 times per week Estimated Hrs Per Day: .25 hour per day Patient and/or Family Agrees t: Yes Safety Risks/Education Patient Education: Gait Training, Transfer Techniques, Correct Positioning, Safety Issues Teaching Recipient: Patient Teaching Methods: Discussion Response to Teaching: Verbalize Understanding, Reinforcement Needed Time/GCodes Time In: 920 Time Out: 933 Total Billed Treatment Time: 13 Total Billed Treatment 1 visit FA 13min KRISTIE POSEY PT September 07, 2021 09:55
--- NOTE | 2021-09-07 10:23 | Occupational Ther Daily Note ---
OT Current Status-Daily Note Subjective Pt alert, lying in bed. Pt agrees to therapy. No c/o pain at this time. Mental Status/Objective Patient Orientation: Person Attachments: Taylor Catheter, IV ADL-Treatment Therapy Code Descriptions/Definitions Functional [place] Measure: 0=Not Assessed/NA 4=Minimal Assistance 1=Total Assistance 5=Supervision or Setup 2=Maximal Assistance 6=Modified [place] 3=Moderate Assistance 7=Complete IndependenceSCALE: Activities may be completed with or without assistive devices. 7-Rrxpsrphxf-cpiolso completes the activity by him/herself with no assistance from a helper. 5-Set-up or Clean-up Assistance-helper sets up or cleans up; patient completes activity. [place] assists only prior to or following the activity. 4-Supervision or Touching Assistance-helper provides verbal cues and/or touching/steadying and/or contact guard assistance as patient completes activity. Assistance may be provided throughout the activity or intermittently. 3-Partial/Moderate Assistance-helper does LESS THAN HALF the effort. [place] lift s, holds or supports trunk or limbs, but provides less than half the effort. 2-Substantial/Maximal Assistance-helper does MORE THAN HALF the effort. [place] lifts or holds trunk or limbs and provides more than half the effort. 5-Wjbdndxle-ljfwxs does ALL the effort. Patient does none of the effort to complete the activity. Or, the assistance of 2 or more helpers is required for the patient to complete the activity. If activity was not attempted, code reason: 7-Patient Refused. 9-Not Applicable-not attempted and the patient did not perform the activity before the current illness, exacerbation or injury. 10-Not Attempted due to Environmental Limitations-(lack of equipment, weather restraints, etc.). 88-Not Attempted due to Medical Conditions or Safety Concerns. Toileting Hygiene (QC): 1 Other Treatment Assist x2 supine<-->EOB. Sat EOB independently. With bed elevated, assist x1 for sit to stand. Assist x2 for safety to completed 2-4 steps forward and back then sideways up to HOB using 4WW. Pt requires increased surface height for transfers. Assist x3 for EOB to supine and to position in bed. After therapy, pt lying in bed with call light/phone in reach. All needs met in room. Family present in room at end of session. OT Shelter Goals Dredge Boat Engineer Goals Time Frame: September 22, 2021 Eating (QC): 5 Oral Hygiene (QC): 5 Toileting Hygiene (QC): 3 Upper Body Dressing (QC): 3 Additional Goals: 1-Demonstrate ADL Tasks, 2-Verbalize Understanding, 3- ImproveStrength/Giovanna 1=Demonstrate adherence to instructed precautions during ADL tasks. 2=Patient will verbalize/demonstrate understanding of assistive devices/modifications for ADL. 3=Patient will improve strength/tolerance for activity to enable patient to perform ADL's. OT Education/Plan Problem List/Assessment Assessment: Decreased Activ Tolerance, Decreased UE Strength Discharge Recommendations Plan/Recommendations: Continue POC Treatment Plan/Plan of Care Patient would benefit from OT for education, treatment and training to promote independence in ADL's, mobility, safety and/or upper extremity function for ADL's. Plan of Care: ADL Retraining, Functional Mobility, UE Funct Exercise/Act Treatment Duration: September 22, 2021 Frequency: 3 times per week (3-5 times per week) Estimated Hrs Per Day: .25 hour per day Rehab Potential: Guarded Time/GCodes Start Time: 09:21 Stop Time: 09:35 Total Time Billed (hr/min): 14 Billed Treatment Time 1 visit-FA 1 (14 min) STEFANO MONROE September 07, 2021 10:23
[2021-09-07] MEDS: VANCOMYCIN 1250 MG/NS 250 ML IVPB IV SCH ×2 (10:31)
[2021-09-07] MEDS ORDERED: FUROSEMIDE 40 MG/4 ML INJ (LASIX) IVP NR (11:15)
[2021-09-07] MEDS ORDERED: MAGNESIUM CITRATE 300 ML BTL PO NR (11:15)
[2021-09-07] MEDS: RT-ALBUTEROL SULF 2.5 MG/3 ML PRE-MIX VIAL INH PRN (11:37)
[2021-09-07] MEDS: ENOXAPARIN 40 MG/0.4 ML (LOVENOX) SYR SC SCH ×2 (11:42→23:01)
[2021-09-07 11:48] LABS: ABG BASE EXCESS 0.5 MMOL/L (-2.5-2.5); ABG OXYGEN SATURATION 92 % (94-100); ABG PCO2 36 MMHG (35-45); ABG PH 7.44 (7.37-7.43); ABG PO2 64 MMHG (79-93); ABG TCO2 25.5 MMOL/L (21.0-31.0)
[2021-09-07 11:49] LABS: ALLENS TEST POSITIVE; PATIENT TEMP 36.3; VENTILATOR NO
[2021-09-07 12:09] VITALS: BP 170/78
[2021-09-07 16:00] VITALS: BP 138/74
[2021-09-07 19:19] VITALS: BP 154/81
[2021-09-08 00:03] VITALS: BP 138/65
[2021-09-08] MEDS: hydrALAZINE (APESOLINE) 20 MG/ML VIAL IV SCH ×4 (00:05→12:47)
[2021-09-08 04:02] VITALS: BP 151/67
[2021-09-08 06:12] LABS: BASOPHILS # (AUTO) 0.1 10^3/uL (0.0-0.1); BASOPHILS % (AUTO) 1 % (0-10); EOSINOPHILS # (AUTO) 0.4 10^3/uL (0.0-0.3); EOSINOPHILS % (AUTO) 4 % (0-10); HEMATOCRIT 37 % (40-54); HEMOGLOBIN 12.3 g/dL (13.3-17.7); LYMPHOCYTES # (AUTO) 1.8 10^3/uL (1.0-4.0); LYMPHOCYTES % (AUTO) 20 % (12-44); MEAN CORPUSCULAR HEMOGLOBIN 29 pg (25-34); MEAN CORPUSCULAR HGB CONC 33 g/dL (32-36); MEAN CORPUSCULAR VOLUME 87 fL (80-99); MEAN PLATELET VOLUME 8.8 fL (9.0-12.2); MONOCYTES # (AUTO) 0.9 10^3/uL (0.0-1.0); MONOCYTES % (AUTO) 10 % (0-12); NEUTROPHILS # (AUTO) 5.8 10^3/uL (1.8-7.8); NEUTROPHILS % (AUTO) 65 % (42-75); PLATELET COUNT 449 10^3/uL (130-400)
[2021-09-08] MEDS: PIPERACILLIN SODIUM/TAZOBACTAM 4.5 GM in NS (IVPB) 100 ML IV SCH (06:32)
[2021-09-08 06:37] LABS: POTASSIUM 4.2 MMOL/L (3.6-5.0)
[2021-09-08 06:38] LABS: CALCIUM 8.6 MG/DL (8.5-10.1)
[2021-09-08 06:40] LABS: TOTAL PROTEIN 6.6 GM/DL (6.4-8.2)
[2021-09-08 06:41] LABS: BILIRUBIN,TOTAL 0.5 MG/DL (0.1-1.0)
[2021-09-08 06:43] LABS: CREATININE SERUM 1.14 MG/DL (0.60-1.30)
[2021-09-08 08:00] VITALS: BP 168/82
[2021-09-08] MEDS ORDERED: fluCOnazole (DIFLUCAN) 100 MG TAB PO SCH (09:00)
[2021-09-08] MEDS: SENNOSIDES 8.6 MG (SENOKOT) TAB PO SCH (09:36)
[2021-09-08] MEDS: DOCUSATE SODIUM 100 MG (COLACE) CAP PO SCH (09:36)
[2021-09-08] MEDS: LOSARTAN 50 MG (COZAAR) TAB PO SCH (09:36)
[2021-09-08] MEDS: cloNIDine 0.1 MG (CATAPRES) TAB PO SCH (09:36)
--- NOTE | 2021-09-08 09:37 | Cardiology Progress Note ---
Subjective Date Seen by Provider: September 08, 2021 Time Seen by Provider: 09:36 Subjective/Events-last exam Patient was seen at bedside, laying down comfortably, complaining of fatigue Cellulitis is improving slowly Review of Systems General: No Chills, No Night Sweats; Fatigue, Malaise; No Appetite, No Other HEENT: No Head Aches, No Visual Changes, No Eye Pain, No Ear Pain, No Dysphasia, No Sinus Congestion, No Post Nasal Drip, No Sore Throat, No Other Pulmonary: No Dyspnea, No Cough, No Pleuritic Chest Pain, No Other Cardiovascular: No: Chest Pain, Palpitations, Orthopnea, Paroxysmal Noc. Dyspnea, Edema, Lt Headedness, Other Focused Exam Time of Focused Exam: 929 Objective-Cardiology Exam Last Set of Vital Signs Vital Signs 09/06/21 09/07/21 09/08/21 09/08/21 21:12 11:38 08:00 08:21 Temp 36.6 Pulse 90 Resp 19 B/P (MAP) 168/82 (110) Pulse Ox 93 O2 Delivery Room Air O2 Flow Rate 0.00 FiO2 21 I&O Intake and Output 09/08/21 00:00 Intake Total 1852.5 ml Output Total 4201 ml Balance -2348.5 ml Intake Oral 1340 ml IV Total 512.5 ml Output Urine Total 4200 ml Stool Total 1 ml General: Alert, Cooperative HEENT: Atraumatic Neck: Supple Lungs: Normal Air Movement, Other (Bilateral wheezing) Heart: Normal S1, Normal S2, Other (Lymphedema) Abdomen: Normal Bowel Sounds Extremities: No Clubbing, Other (Lymphedema with blisters and cellulitis on the lower extremities) Skin: Other (Blisters on the lower extremities) Neuro: Normal Speech Psych/Mental Status: Mood NL Results Lab Laboratory Tests 09/08/21 06:06 A/P-Cardiology Admission Diagnosis Sepsis Cellulitis Hypertension Dementia Assessment/Plan Sepsis, cellulitis of bilateral lower extremities, started on Diflucan IV, vancomycin IV and Zosyn IV, managed by primary care physician Lymphedema, chronic pedal edema. Poor hygiene. Not maintained on diuretics Hypertension, history of hypertensive urgency in 2019. Patient does not take any medication, continue to monitor blood pressure. Hypoxemia, patient had ABG showing hypoxemia. Not requiring oxygen supplement. Managed by medical team 2D echocardiogram was done on September 04, 2021, poor window, normal LV size and function, ejection fraction 55%. Unable to evaluate pulmonary artery pressure Dementia, worsening of mental status, patient is disoriented to time and place, probably secondary to sepsis. Metabolic acidosis. Better at this time. Continue to monitor Acute on chronic renal insufficiency, improving, continue to monitor renal function TERESA FINK MD September 08, 2021 09:37
[2021-09-08] MEDS: MICONAZOLE 2% POWDER (DESENEX AF) 90 GM TOP SCH (09:43)
[2021-09-08] MEDS: HYPOCHLOROUS ACID/NaCl (VASHE) 250 ML IR SCH (09:43)
--- NOTE | 2021-09-08 10:36 | Occupational Ther Daily Note ---
OT Current Status-Daily Note Subjective Pt denies pain, agreeable to UE exercises. Appearance Pt left supine in bed, all needs within reach. Mental Status/Objective Attachments: Taylor Catheter, IV, Oxygen ADL-Treatment Therapy Code Descriptions/Definitions Functional [place] Measure: 0=Not Assessed/NA 4=Minimal Assistance 1=Total Assistance 5=Supervision or Setup 2=Maximal Assistance 6=Modified [place] 3=Moderate Assistance 7=Complete IndependenceSCALE: Activities may be completed with or without assistive devices. 7-Phjbjtxgqy-gbimzoi completes the activity by him/herself with no assistance from a helper. 5-Set-up or Clean-up Assistance-helper sets up or cleans up; patient completes activity. [place] assists only prior to or following the activity. 4-Supervision or Touching Assistance-helper provides verbal cues and/or touching/steadying and/or contact guard assistance as patient completes activity. Assistance may be provided throughout the activity or intermittently. 3-Partial/Moderate Assistance-helper does LESS THAN HALF the effort. [place] lifts, holds or supports trunk or limbs, but provides less than half the effort. 2-Substantial/Maximal Assistance-helper does MORE THAN HALF the effort. [place] lifts or holds trunk or limbs and provides more than half the effort. 5-Obtujccyd-nboxzd does ALL the effort. Patient does none of the effort to complete the activity. Or, the assistance of 2 or more helpers is required for the patient to complete the activity. If activity was not attempted, code reason: 7-Patient Refused. 9-Not Applicable-not attempted and the patient did not perform the activity before the current illness, exacerbation or injury. 10-Not Attempted due to Environmental Limitations-(lack of equipment, weather restraints, etc.). 88-Not Attempted due to Medical Conditions or Safety Concerns. Other Treatment While reclined in bed, pt participated in UE AROM exercises with goal to promote increased strength, endurance, and ROM needed for functional tasks. LUE greatly weaker than Right; fatigues very quickly needing AAROM after 3-4 reps. Shoulder ROM performed to 90 degrees. Isometric holds at shoulder and elbow to promote muscle strength. 10x1, all planes. Cues for PLB as pt with audible wheezing. Appears to be a mouth breather. Education OT Patient Education: Correct positioning, Exercise program, Progress toward Goal/Update tx plan, Purpose of tx/functional activities Teaching Recipient: Patient Teaching Methods: Demonstration, Discussion Response to Teaching: Verbalize Understanding, Return Demonstration, Reinforcement Needed OT Correction Goals Seat Scooper Machine Goals Time Frame: September 22, 2021 Eating (QC): 5 Oral Hygiene (QC): 5 Toileting Hygiene (QC): 3 Upper Body Dressing (QC): 3 Additional Goals: 1-Demonstrate ADL Tasks, 2-Verbalize Understanding, 3-ImproveStrength/Giovanna 1=Demonstrate adherence to instructed precautions during ADL tasks. 2=Patient will verbalize/demonstrate understanding of assistive devices/modifications for ADL. 3=Patient will improve strength/tolerance for activity to enable patient to perform ADL's. OT Education/Plan Problem List/Assessment Assessment: Decreased Activ Tolerance, Decreased Safety Aware, Decreased UE Strength, Dependent Transfers, Impaired Coordination, Impaired Funct Balance, Impaired Self-Care Skills, Restricted Funct UE ROM Discharge Recommendations Plan/Recommendations: Continue POC Therapy Discharge Recommendati: Post Acute OT Treatment Plan/Plan of Care Treatment,Training & Education: Yes Patient would benefit from OT for education, treatment and training to promote independence in ADL's, mobility, safety and/or upper extremity function for ADL's. Plan of Care: ADL Retraining, Functional Mobility, UE Funct Exercise/Act Treatment Duration: September 22, 2021 Frequency: 3 times per week (3-5 times per week) Estimated Hrs Per Day: .25 hour per day Rehab Potential: Guarded Time/GCodes Start Time: 10:09 Stop Time: 10:19 Total Time Billed (hr/min): 10 Billed Treatment Time 1 visit EX Codie Ham OT September 08, 2021 10:36
[2021-09-08] MEDS ORDERED: LOSA50TA63 PO (11:36)
[2021-09-08] MEDS ORDERED: ALBU2.5V4 INH (11:36)
[2021-09-08] MEDS ORDERED: FURO20TA4 PO (11:36)
[2021-09-08] MEDS ORDERED: MICO90PO TOP (11:36)
[2021-09-08] MEDS ORDERED: DOXA2TAB2 PO (11:36)
[2021-09-08] MEDS ORDERED: ENOX40DI8 SC (11:36)
[2021-09-08] MEDS ORDERED: FLUC100T10 PO (11:36)
[2021-09-08] MEDS ORDERED: MTP25TSR PO (11:36)
[2021-09-08] MEDS ORDERED: SODI475I IR (11:36)
[2021-09-08] MEDS ORDERED: BETH50TA2 PO (11:36)
[2021-09-08] MEDS ORDERED: ACET325T49 PO (11:36)
[2021-09-08] MEDS ORDERED: ONDA4TAB11 PO (11:36)
[2021-09-08] MEDS ORDERED: SNN187T PO (11:36)
[2021-09-08] MEDS ORDERED: CLN.1T PO (11:36)
--- NOTE | 2021-09-08 11:37 | Discharge Inst-Skilled Nursing ---
Discharge Inst-Skilled NF Reconcile Patient Problems Problems Reviewed?: Yes Chief Complaint Chief complaint: Bilateral lower extremity cellulitis History of present illness: This is an 81-year-old male of [facility] who resides in a camper with his who has a past medical history of chronic lower extremity lymphedema who presented to the ER with weakness and fever found to have bilateral lower extremity cellulitis on chronic lymphedema condition. Patient appears to have multiple wounds and wound care will be consulted. The son and his are at the bedside and are requesting DPOA papers to be signed and placement. Patient Instructions Patient Problems: Debility DYsphagia Consult/Follow Up/Orders Follow Up Appt.: PCP NH rounds Skilled NF Admit to: Via [facility] ([facility]) I certify that SNF services are required to be given on an inpatient basis because of the above named patient's need for senior living care on a continuing basis for the conditions(s) for which he/she was receiving inpatient hospital services prior to his/her transfer to the [facility]. Assisted Facility Order: Nursing Services, Basketball Player-Evaluate & Treat, Physical Therapy-Evaluate & Treat, Speech Language-Evaluate & Treat, Wound Care-Eval/Treat Oxygen Delivery Method: Room Air Discharge Diet: No Restrictions Resuscitation Status: Full Code New & Resume Previous Orders New Medications: Acetaminophen (Acetaminophen) 325 Mg Tablet 650 MG PO Q4H PRN for TEMPERATURE, #30 TAB Albuterol Sulfate (Albuterol Sulfate) 2.5 Mg/3 Ml (0.083 %) Vial.neb 2.5 MG INH RTQ4HR PRN for SOA, #60 INHALER Clonidine HCl (Clonidine HCl) 0.1 Mg Tablet 0.1 MG PO BID, #60 TAB Enoxaparin Sodium (Enoxaparin Sodium) 40 Mg/0.4 Ml Syringe 40 MG SC Q12H, #60 SYRINGE Fluconazole (Fluconazole) 100 Mg Tablet 100 MG PO DAILY, #7 TAB Losartan Potassium (Losartan Potassium) 50 Mg Tablet 50 MG PO DAILY, #30 TAB Metoprolol Succinate (Metoprolol Succinate) 25 Mg Tab.er.24h 25 MG PO DAILY, #30 TAB Miconazole Nitrate (Lotrimin AF) 2 % Powder 0 GM TOP BID, #1 EA Ondansetron (Ondansetron Odt) 4 Mg Tab.rapdis 4 MG PO Q6H PRN for NAUSEA/VOMITING-1ST LINE, #20 TAB Sennosides (Senna Lax) 8.6 Mg Tablet 8.6 MG PO BID, #30 TAB Sodium Chlor/Hypochlorous Acid (Vashe Wound Therapy Solution) 0.033 % Irrig.soln 0 ML IR BID, #1 EA Continued Medications: Bethanechol Chloride (Bethanechol Chloride) 50 Mg Tablet 50 MG PO QIDACHS, #120 TAB (This prescription has been renewed) Doxazosin Mesylate (Doxazosin Mesylate) 2 Mg Tablet 2 MG PO HS, #30 TAB (This prescription has been renewed) Furosemide (Furosemide) 20 Mg Tablet 20 MG PO DAILY, #30 TAB (This prescription has been renewed) Guillermina Guthrie September 08, 2021 11:36 GUILLERMINA GUTHRIE DO September 08, 2021 11:37
--- NOTE | 2021-09-08 11:54 | Physical Therapy Daily Note ---
PT Daily Note-Current Subjective Patient was asleep in bed with family in room. Family stated that they were transferring patient to shelter today. Pain Location: No Pain Reported Mental Status Patient Orientation: Person, Place, Situation Attachments: Taylor Catheter Transfers SCALE: Activities may be completed with or without assistive devices. 0-Eypgzrnlbw-qqbjxyh completes the activity by him/herself with no assistance from a helper. 5-Set-up or Clean-up Assistance-helper sets up or cleans up; patient completes activity. [place] assists only prior to or following the activity. 4-Supervision or Touching Assistance-helper provides verbal cues and/or touching/steadying and/or contact guard assistance as patient completes activity. Assistance may be provided throughout the activity or intermittently. 3-Partial/Moderate Assistance-helper does LESS THAN HALF the effort. [place] lifts, holds or supports trunk or limbs, but provides less than half the effort. 2-Substantial/Maximal Assistance-helper does MORE THAN HALF the effort. [place] lifts or holds trunk or limbs and provides more than half the effort. 4-Nrexwkzoh-ltdmjd does ALL the effort. Patient does none of the effort to complete the activity. Or, the assistance of 2 or more helpers is required for the patient to complete the activity. If activity was not attempted, code reason: 7-Patient Refused. 9-Not Applicable-not attempted and the patient did not perform the activity before the current illness, exacerbation or injury. 10-Not Attempted due to Environmental Limitations-(lack of equipment, weather restraints, etc.). 88-Not Attempted due to Medical Conditions or Safety Concerns. Roll Left & Right (QC): 1 Sit to Lying (QC): 1 Lying to Sitting/Side of Bed(Q: 1 Sit to Stand (QC): 3 mod assist to stand with bed elevated Weight Bearing Right Lower Extremity: Right Full Weight Bearing Left Lower Extremity: Left Full Weight Bearing Gait Training Distance: 5ft Patient was min assist with taking a step forward and back and a few side steps toward head of bed. Patient used home walking device. Treatments Bed mobility, transfers, ambulation Assessment Current Status: Poor Progress Patient appeared slightly weaker than yesterday requiring more assistance with taking a few steps, and sit-stand transfer. PT cleaned patient after a BM and changed out new bed sheets and padding. Stool was still bloody, and mucus like. Patient was put back in bed with call light, tray, and family in room. PT Furnace Fitter Goals [facility] Goals PT Furnace Fitter Goals Time Frame: September 11, 2021 Roll Left & Right (QC): 3 Sit to Lying (QC): 3 Lying-Sitting on Side/Bed(QC): 3 Sit to Stand (QC): 3 Chair/Aff-or-Olshj Xfer(QC): 3 PT Plan Problem List Problem List: Activity Tolerance, Functional Strength, Safety, Balance, Gait, Transfer, Bed Mobility, ROM Treatment/Plan Treatment Plan: Continue Plan of Care Treatment Plan: Bed Mobility, Education, Functional Activity Gi[place]anna, Functional Strength, Gait, Safety, Therapeutic Exercise, Transfers Treatment Duration: September 11, 2021 Frequency: 6 times per week Estimated Hrs Per Day: .25 hour per day Patient and/or Family Agrees t: Yes Safety Risks/Education Patient Education: Gait Training, Transfer Techniques, Correct Positioning, Safety Issues Teaching Recipient: Patient Teaching Methods: Demonstration, Discussion Response to Teaching: Verbalize Understanding, Return Demonstration Time/GCodes Time In: 1131 Time Out: 1142 Total Billed Treatment Time: 11 Total Billed Treatment 1 visit FA 11min KRISTIE POSEY PT September 08, 2021 11:54
[2021-09-08 12:29] VITALS: BP 130/80
[2021-09-08] MEDS: ENOXAPARIN 40 MG/0.4 ML (LOVENOX) SYR SC SCH (12:47)
[2021-09-08 13:20] VITALS: BP 130/80
== END 2021-09-08 14:15 | disposition short-term general hospital (02) | DRG 871 ==
LOC: EDUNIT# 07:30 → ER 07:31 → 4TH 09:49
PROVIDERS: ADMIT Internal Medicine; ATTEND Internal Medicine
DX: A41.9 Sepsis, unspecified organism (principal); G93.41 Metabolic encephalopathy; L03.116 Cellulitis of left lower limb; L03.115 Cellulitis of right lower limb; E87.2 Acidosis; I10 Essential (primary) hypertension; L89.152 Pressure ulcer of sacral region, stage 2; Z20.822 Contact with and (suspected) exposure to COVID-19; R32 Unspecified urinary incontinence; N28.9 Disorder of kidney and ureter, unspecified; E66.9 Obesity, unspecified; I87.8 Other specified disorders of veins; R53.1 Weakness; R60.1 Generalized edema; I89.0 Lymphedema, not elsewhere classified; R09.02 Hypoxemia; F03.90 Unspecified dementia, unspecified severity, without behavioral disturbance, psychotic disturbance, mood disturbance, and anxiety; Z85.46 Personal history of malignant neoplasm of prostate; Z92.3 Personal history of irradiation; Z90.79 Acquired absence of other genital organ(s)
CPT/HCPCS: 36415; 36600; 70450; 71045; 71250; 74176; 74230; 80053; 80202; 80320; 81000; 82150; 82550; 82553; 82805; 83605; 83690; 83735; 83874; 83880; 84145; 84443; 84484; 85007; 85025; 85027; 85610; 85652; 85730; 86141; 87040; 87070; 87077; 87088; 87186; 87205; 87636; 93005; 93041; 93306; 94640; 94664; 94760

== ENCOUNTER → 2021-12-29 | Outpatient (CLI) | payer MEDICARE ==
[~2021-12-29] MED LIST changes: +ACET325T49 PO; +ALBU2.5V4 INH; +BETH50TA3 PO; +DOXA2TAB2 PO; +ENOX40DI8 SC; +FLUC100T10 PO; +FURO20TA4 PO; +LOSA50TA63 PO; +MICO90PO TOP; +ONDA4TAB11 PO; +SNN187T PO; +SODI475I IR
--- NOTE | 2021-12-29 11:24 | Diagnostic Imaging Report ---
INDICATION: Dysphagia. The procedure was performed in conjunction with speech pathology. Video fluoroscopy was performed during the swallowing of barium in multiple consistencies. A total of 1.5 minutes of fluoroscopic time was utilized. The patient ingested thin barium as well as applesauce and cracker consistencies. There were 2 episodes of laryngeal penetration during the swallowing of thin barium. No aspiration was observed. There is some early spillover noted as well as some vallecular residue noted with multiple consistencies. IMPRESSION: Penetration with thin liquid as well as mild early spillover and vallecular residue. No aspiration was observed. Dictated by: Dictated on workstation # [id number]
== END ==
LOC: RAD 10:00
PROVIDERS: ATTEND Nurse Practitioner Community Health
DX: R13.12 Dysphagia, oropharyngeal phase (principal)
CPT/HCPCS: 74230

== ENCOUNTER → 2023-01-13 | Outpatient (CLI) | payer MEDICARE, MEDICAID ==
[~2023-01-13] MED LIST changes: +APIX2.5T PO; +LOSA-423 PO; +ONDA4TAB11 SL; +POTA-177 PO; -POTA10TA37 PO; +PRD50T PO; +SENN-234 PO; +SENN-341 PO; -SNN187T PO
[2023-01-13 11:55] LABS: HEMATOCRIT 37 % (40-54); HEMOGLOBIN 11.8 g/dL (13.3-17.7); MEAN CORPUSCULAR HEMOGLOBIN 31 pg (25-34); MEAN CORPUSCULAR HGB CONC 32 g/dL (32-36); MEAN CORPUSCULAR VOLUME 96 fL (80-99); MEAN PLATELET VOLUME 10.2 fL (9.0-12.2); PLATELET COUNT 363 10^3/uL (130-400); WHITE BLOOD COUNT 12.1 10^3/uL (4.3-11.0)
[2023-01-13 12:10] LABS: ALBUMIN 3.6 GM/DL (3.2-4.5); BILIRUBIN,TOTAL 0.5 MG/DL (0.1-1.0); CALCIUM 8.9 MG/DL (8.5-10.1); CREATININE SERUM 1.62 MG/DL (0.60-1.30); POTASSIUM 4.2 MMOL/L (3.6-5.0); TOTAL PROTEIN 6.6 GM/DL (6.4-8.2)
== END ==
LOC: CVS 11:25
PROVIDERS: ATTEND Nurse Practitioner Community Health
DX: R06.02 Shortness of breath (principal)
CPT/HCPCS: 80053; 83880; 85027